=== PATIENT | female | born 1940 | race Caucasian/White ===

== ENCOUNTER 2017-12-25 12:23 | Inpatient (IN) | payer MEDICARE, BC ==
[2017-12-25] MEDS ORDERED: Ondansetron 4 MG/2 ML SDV IVPUSH ONE (12:41)
[2017-12-25] MEDS ORDERED: Pantoprazole 40 MG Vial IVPUSH ONE (12:41)
[2017-12-25] MEDS ORDERED: Famotidine 20 MG/2 ML SDV IVPUSH ONE (12:41)
--- NOTE | 2017-12-25 12:41 | EDM.PDOC ---
ED HPI GENERAL MEDICAL PROBLEM - General Chief Complaint: General Stated Complaint: fever, vommiting, diarrhea Time Seen by Provider: 12/25/17 12:35 Source of Information: Reports: Patient, EMS, Old Records ([facility] chart/EMR), Other ([facility] EMR). Denies: EMS Notes Reviewed (Not available at time of dictation) History Limitations: Reports: No Limitations - History of Present Illness INITIAL COMMENTS - FREE TEXT/NARRATIVE: Patient was brought to the emergency room via ambulance with business banking sales assistant accompaniment with failed attempt to place an IV by the business banking sales assistant with no other treatment in route. Note that the patient has had some progressive nausea and emesis with additional fever and chills since about 2 PM yesterday afternoon. She denies any known exposure to infection, food poisoning, etc. She did not measure her temperature with 650 mg of Tylenol taken at about 10 AM this morning , however no other medications taken for her symptoms to this point. No recent history of abdominal pain, heartburn, diarrhea, melena, gross hematochezia, or any food intolerance, including fatty foods, etc.. She has had 2 emeses since onset of the above symptoms, including earlier this morning with dry heaves and some loose stools also present today. The patient denies any gross hematuria, colic, or other UTI symptoms. The patient denies any chest pain/pressure, heart flutter, dizziness, orthostasis, orthopnea, diaphoresis, paresthesias, recent decreased exercise tolerance, or any other anginal-type symptoms. The patient also denies any recent cough, wheezing, dyspnea, etc.. She denies any specific pain or other discomfort. Patient is a somewhat poor historian today secondary to her anxiety and current illness. Onset: Gradual Onset Date: 12/24/17 Onset Time: 14:00 Duration: Getting Worse Location: Reports: Other (No pain) Quality: Reports: Same as Previous Episode Improves with: Reports: None Worsens with: Reports: None Context: Reports: Other (As above) Associated Symptoms: Reports: Fever/Chills, Nausea/Vomiting. Denies: Confusion , Chest Pain, Cough, Diaphoresis, Headaches, Loss of Appetite, Malaise, Seizure , Shortness of Breath, Syncope, Weakness Treatments STERNMAN: Reports: Acetaminophen - Related Data Allergies Allergy/AdvReac Type Severity Reaction Status Date / Time cefazolin Allergy Hives Verified 10/21/15 15:37 cephalexin [Cephalexin] Allergy Hives Verified 10/21/15 15:37 clindamycin Allergy Rash Verified 10/21/15 15:37 lincomycin HCl Allergy Rash Verified 10/21/15 15:37 [From Lincocin] Penicillins Allergy Hives Verified 10/21/15 15:37 sulfamethoxazole Allergy Hives Verified 10/21/15 15:37 [From Bactrim] trimethoprim [From Bactrim] Allergy Hives Verified 10/21/15 15:37 vancomycin Allergy Rash Verified 10/21/15 15:37 adhesive tape Allergy Rash Uncoded 10/21/15 15:37 Home Meds: Home Meds Arformoterol [Brovana] 15 mcg INH Q12HR 09/24/13 [History] Aspirin [Halfprin] 81 mg PO DAILY@1200 09/24/13 [History] Budesonide [Pulmicort] 0.25 mg INH BID 09/24/13 [History] Cholecalciferol (Vitamin D3) [Vitamin D3] 1,000 unit PO QAM 09/24/13 [History] Clopidogrel [Plavix] 75 mg PO DAILY 09/24/13 [History] Etodolac [Lodine] 300 mg PO BID 09/24/13 [History] Fluticasone Propionate [Flonase] 50 mcg NASBOTH DAILY 09/24/13 [History] Furosemide [Lasix] 20 mg PO DAILY 09/24/13 [History] Hydroxychloroquine [Plaquenil] 200 mg PO DAILY 09/24/13 [History] Levothyroxine [Synthroid] 50 mcg PO BEDTIME 09/24/13 [History] Metoprolol Succinate 50 mg PO BEDTIME 09/24/13 [History] NIFEdipine [Nifedipine ER] 30 mg PO DAILY 09/24/13 [History] Pentoxifylline [TRENtal] 400 mg PO TID@0800,1200,2100 09/24/13 [History] Prasterone [DHEA] 25 mg PO DAILY 09/24/13 [History] Acetylcysteine [Mucomyst 20%] 3 ml NEB TIDRT 10/21/15 [History] Calcium Carbonate/Vitamin D3 [Calcium 600-Vit D3 400 Tablet] 1 tab PO DAILY [History] Lutein/Minerals/Vit A,C & E [Ocuvite] 1 tab PO BEDTIME 10/21/15 [History] Pantoprazole [ProTONIX] 40 mg PO ACBREAKFAST 10/21/15 [History] atorvaSTATin [Lipitor] 40 mg PO BEDTIME 10/21/15 [History] Arformoterol [Brovana] 15 mcg INH PRN 12/25/17 [History] LORazepam 1.5 mg PO BID PRN 12/25/17 [History] Multivits-Min/Iron/FA/Lutein [Centrum Silver Women Tablet] 1 tab PO DAILY [History] Prasterone (DHEA) [Dhea 25] 25 mg PO DAILY 12/25/17 [History] Sertraline [Zoloft] 25 mg PO DAILY 12/25/17 [History] traMADol HCl [Ultram] 50 mg PO Q4HR PRN 12/25/17 [History] Past Medical History HEENT History: Reports: Allergic Rhinitis, Macular Degeneration Cardiovascular History: Reports: Arrhythmia, Blood Clots/VTE/DVT, CAD, Cardiomyopathy, Heart Failure, Heart Murmur, High Cholesterol, Hypertension, TX , PVD, Other (See Below) Other Cardiovascular History: TX in 1990. DVT of the left distal femoral vein on 02/09/16. Peripheral vascular disease with secondary refractory bilateral lower extremities ulcers as below. Varicose veins. Borderline incomplete right bundle branch block. Mild mitral and tricuspid valve insufficiency by echocardiogram with additional grade 1 diastolic dysfunction. 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 Respiratory History: Reports: Bronchitis, Recurrent, COPD, Intubation, Previous , Pneumonia, Recurrent, Pulmonary Fibrosis, Other (See Below). Denies: Asthma, Intubation, Difficult, PE, Sleep Apnea Other Respiratory History: Nocturnal hypoxia with no current oxygen supplementation. Chronic left hemidiaphragm elevation. Gastrointestinal History: Reports: Cholelithiasis, Diverticulosis, Fecal Incontinence, GERD, Helicobacter Pylori. Denies: Celiac Disease, Chronic Constipation, Chronic Diarrhea, Colon Polyp, GI Bleed, Inflammatory Bowel Disease, Irritable Bowel Syndrome, PUD Genitourinary History: Reports: Chronic Renal Insuffiency, Retention, Urinary. Denies: Acute Renal Failure, Renal Calculus, STD, UTI, Recurrent BAGGAGEMAN History: Reports: : 4 Para: 4 LMP (Approximate): Other (See Below) Other OB/BYN History: Menopause in her 50s. Full term without complications during pregnancies or deliveries, however note of last at [age] day of age as above Musculoskeletal History: Reports: Arthritis, Back Pain, Chronic, Fracture, Neck Pain, Chronic, Osteoarthritis, Osteoporosis, SLE, Other (See Below). Denies: Amputation, Gout, RA Other Musculoskeletal History: Multiple thoracic vertebral body compression fracture secondary to her osteoporosis. Moderate scoliosis. SLE with recurrent bilateral leg ulcers. Neurological History: Reports: CVA, Headaches, Chronic, TIA, Other (See Below). Denies: Cerebral Aneurysms, Head Trauma, Migraines, MS, Neuropathy, Peripheral , Parkinson's, Seizure, Vertigo Other Neuro History: Borderline CVA versus TIA on 02/03/[address] scan of the head with requested MRIs of the head and neck not conducted at [facility] at that time per their EMR records as below. Cerebral microvascular disease by CT scan. Psychiatric History: Reports: Anxiety, Dementia, Psych Hospitalization(s), Other (See Below). Denies: Abuse, Victim of, ADD, Addiction, PTSD, Suicide Attempt, Suicidal Ideation Other Psychiatric History: Chronic insomnia Endocrine/Metabolic History: Reports: Hypothyroidism, Obesity/BMI 30+, Osteopenia, Osteoporosis, Vitamin D Deficiency, Other (See Below). Denies: Diabetes, Type I, Diabetes, Type II, Diabetes Mellitus, Type 3c, IDDM Other Endocrine/Metabolic History: Hyperglycemia. Hyperaldosteronism. Hematologic History: Reports: None. Denies: Anemia, Blood Transfusion(s), Iron Deficiency Immunologic History: Reports: SLE. Denies: AIDS, HIV Oncologic (Cancer) History: Reports: None. Denies: Basal Cell Carcinoma, Cervix , Hodgkin's Lymphoma, Leukemia, Lung, Lymphoma, Non-Hodgkin's Lymphoma, Ovarian , Squamous Cell Carcinoma Dermatologic History: Reports: Venous Stasis Dermatitis, Other (See Below) Other Dermatologic History: Chronic bilateral leg ulcers secondary to SLE and peripheral vascular disease as above - Infectious Disease History Infectious Disease History: Reports: MRSA (Of her ankles bilaterally) - Past Surgical History Head Surgeries/Procedures: Reports: None HEENT Surgical History: Reports: Oral Surgery, Other (See Below). Denies: Adenoidectomy, Cataract Surgery, Eye Surgery, Laser Surgery, LASIK, Myringotomy w Tube(s), Naso-Sinus Surgery, Tonsillectomy Other HEENT Surgeries/Procedures: Complete teeth extraction Cardiovascular Surgical History: Reports: None. Denies: Varicose, Vascular Surgery Respiratory Surgical History: Reports: None. Denies: Thoracentesis GI Surgical History: Reports: Appendectomy, Cholecystectomy, Colonoscopy, EGD, Other (See Below). Denies: Hernia, Abdominal, Hernia, Inguinal, Hernia Repair/ Other Other GI Surgeries/Procedures: Appendectomy in the 1940s. Laparoscopic cholecystectomy. EGD on 06/01/11. Colonoscopy in the 1999s. Female Surgical History: Reports: None. Denies: D&C, Hysterectomy, Salpingo- Oophorectomy, Tubal Ligation Endocrine Surgical History: Reports: None Neurological Surgical History: Reports: None Musculoskeletal Surgical History: Reports: Joint Replacement, Knee Replacement, Other (See Below) Other Musculoskeletal Surgeries/Procedures:: Bilateral hip TEP. Bilateral Total knee arthroplasty on 03/21/04 and 07/18/04. Oncologic Surgical History: Reports: None Dermatological Surgical History: Reports: Plastic Surgical Reconstruction/Repair , Skin Graft, Other (See Below) Other Dermatological Surgeries/Procedures: Multiple bilateral skin grafts of the lower extremities and ankles since the 1970s. - Past Imaging History Past Imaging History: Reports: ANALY Screen (Normal on 06/25/12), Cardiac Echo ( with ejection fraction of 6570 percent with otherwise findings as above.) , Carotid US (02/04/14), CAT Scan (CT of the brain on 02/03/14), DEXA Scan (), Mammogram (Last mammogram on 12/19/16), Ultrasound (Left breast ultrasound on 09/26/12), Venous Doppler (Positive left leg venous Doppler study on 02/09/16 with results as above and subsequent multiple follow-up evaluations with last evaluation on 05/22/17 with no report available.), Other (See Below) (Right lower extremity arterial Doppler evaluation on 10/02/17) Social & Family History - Family History HEENT: Reports: None. Denies: Glaucoma, Macular Degeneration, Retinal Detachment Cardiac: Reports: CAD, TX, PVD/COD, Other (See Below) Other Cardiac Family History: Fatal TX in father at age 77. Brothers 2 with peripheral vascular disease. Respiratory: Reports: None. Denies: BPD, COPD, PE GI: Reports: None. Denies: Celiac Disease, Colon Polyps, GI bleed, Inflammatory Bowel Disease, Irritable Bowel Syndrome : Reports: None. Denies: Renal Calculus, Renal Disease/Insufficiency OBGYN: Reports: None Musculoskeletal: Reports: RA, Other (See Below) Other Musculoskeletal Family History: Nephew from muscular dystrophy. Brother with rheumatoid arthritis. Neurological: Reports: None. Denies: Alzheimers Disease, CVA, Dementia, MS, Parkinson's, Seizure, TIA Psychiatric: Reports: None Endocrine/Metabolic: Reports: Diabetes, type II, Other (See Below). Denies: Hypothyroidism Other Endocrine/Metabolic Family History: Diabetes mellitus in mother and brother. Hematologic: Reports: None. Denies: Anemia Immunologic: Reports: None Dermatologic: Reports: None. Denies: Eczema, Psoriasis Oncologic: Reports: Prostate, Other (See Below) Other Oncologic Family History: Brother with prostate cancer. Maternal grandmother and maternal grandfather from unknown type of cancers. - Tobacco Use Smoking Status *Q: Former Smoker Tobacco Use Within Last Twelve Months: Cigarettes Years of Tobacco use: 5 Packs/Tins Daily: 1 Used Tobacco, but Quit: Yes Month/Year Tobacco Last Used: Patient uncertain when she smoker quit smoking Smoking Cessation Information Provided To Patient: No Second Hand Smoke Exposure: No Second Hand Smoke Education Provided: No - Caffeine Use Caffeine Use: Reports: Soda (1 soda per day). 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 ED EXAM, GENERAL - Physical Exam Exam: See Below Exam Limited By: No Limitations General Appearance: Alert, WD/WN, Anxious (Moderate), Mild Distress Eye Exam: Bilateral Eye: EOMI, Normal Fundi, Normal Inspection (No nystagmus), PERRL Ears: Normal External Exam, Normal Canal, Hearing Grossly Normal, Normal TMs Nose: Normal Inspection, Normal Mucosa, No Blood Throat/Mouth: Normal Lips, Normal Gums, Normal Oropharynx, Normal Voice, No Airway Compromise. No: Normal Teeth (Complete dentures uppers and lowers), Dysphagia, Inflammation, Perioral Cyanosis Head: Atraumatic, Normocephalic. No: Facial Swelling, Facial Tenderness, Sinus Tenderness Neck: Supple, Non-Tender, Full Range of Motion, Carotid Bruit (Mild bilateral carotid bruits). No: Limited Range of Motion, Lymphadenopathy (L), Lymphadenopathy (R), Thyromegaly Respiratory/Chest: No Respiratory Distress, Lungs Clear, Normal Breath Sounds, No Accessory Muscle Use, Chest Non-Tender. No: Pleural Rub, Retractions Cardiovascular: Normal Peripheral Pulses, Regular Rate, Rhythm, No Edema, No Gallop, No JVD, No Murmur, No Rub. No: Gallop/S3, Gallop/S4, Friction Rub Peripheral Pulses: 2+: Brachial (L), Brachial (R), Dorsalis Pedis (L), Dorsalis Pedis (R) GI/Abdominal: Normal Bowel Sounds, Soft, Non-Tender, No Organomegaly, No Distention, No Abnormal Bruit, No Mass, Pelvis Stable, Other (Obese). No: Guarding (Female) Exam: Deferred Rectal (Female) Exam: Deferred Back Exam: Normal Inspection, Full Range of Motion, Other (Moderate scoliosis). No: CVA Tenderness (L), CVA Tenderness (R), Muscle Spasm Extremities: Non-Tender, No Pedal Edema, Normal Capillary Refill, Other (Eschar over medial distal tibial region of the right leg with additional 2 cm in diameter 2 grade 2 ulcerations over the medial malleolus with no lymphangitis, erythema, etc. Bandage in place. Stable chronic deformity of the left ankle and foot including pes planus.). No: Luciano's Sign Neurological: Alert, Oriented, CN II-XII Intact, Normal Cognition, Normal Gait, Normal Reflexes (Negative Homans), No Motor/Sensory Deficits Psychiatric: Anxious (Moderate), Depressed Mood (Mild to moderate) Skin Exam: Warm, Dry, Ecchymosis (Forearms bilaterallymild), Wound/Incision ( As above). No: Lymphangitis Lymphatic: No Adenopathy Course - Vital Signs Last Recorded V/S: Last Vital Signs Temp 38.8 C H 12/25/17 12:25 Pulse 97 12/25/17 12:25 Resp 16 12/25/17 12:25 BP 112/81 12/25/17 12:25 Pulse Ox 95 12/25/17 12:25 Vital Signs - 24 hr 12/25/17 12/25/17 12:25 13:00 Temperature [ 38.8 C H Oral] Pulse, 97 95 Peripheral [ Pulse Oximetry] Respiratory 16 20 Rate Blood Pressure 112/81 145/61 H [Right Arm] O2 Sat by Pulse 95 94 L Oximetry - Orders/Labs/Meds Orders: Active Orders 24 hr Category Date Time Status Peripheral IV Care [RC] . DIRECTED Care 12/25/17 12:42 Active Nothing Per Oral Diet [DIET] Diet 12/25/17 Breakfast Active Abdomen Series w Chest 1V [CR] Stat Exams 12/25/17 12:42 Ordered AMYLASE [CHEM] Routine Lab 12/25/17 12:42 Ordered COMPREHENSIVE METABOLIC PN,CMP [CHEM] Stat Lab 12/25/17 12:42 Ordered CULTURE BLOOD [BC] Stat Lab 12/25/17 12:42 Ordered CULTURE BLOOD [BC] Stat Lab 12/25/17 12:42 Ordered CULTURE URINE [RM] Stat Lab 12/25/17 12:42 Ordered H PYLORI STOOL ANTIGEN [MREF] Urgent Lab 12/25/17 12:42 Ordered INR,PT,PROTHROMBIN TIME [COAG] Stat Lab 12/25/17 12:42 Ordered LACTIC ACID [CHEM] Stat Lab 12/25/17 12:42 Ordered LIPASE [CHEM] Stat Lab 12/25/17 12:42 Ordered MAGNESIUM [CHEM] Stat Lab 12/25/17 12:42 Ordered OCCULT BLOOD DIAGNOSTIC [OP] Stat Lab 12/25/17 12:42 Ordered PTT,PARTIAL THROMBOPLSTIN TIME [COAG] Stat Lab 12/25/17 12:42 Ordered UA W/MICROSCOPIC [URIN] Stat Lab 12/25/17 12:42 Ordered URIC ACID [CHEM] Stat Lab 12/25/17 12:42 Ordered Ciprofloxacin in D5W [Cipro in D5W 200 MG/100 ML] 200 Med 12/25/17 20:00 Active mg Premix Bag 1 bag IV Q12HR Sodium Chloride 0.9% [Saline Flush] Med 12/25/17 12:41 Active 10 ml FLUSH ASDIRECTED PRN metroNIDAZOLE/Normal Saline [Flagyl 500 MG in NS 100 ML Med 12/25/17 12:45 Active ] 500 mg Premix Bag 1 bag IV Q8H Blood Culture x2 Reflex Set [OM.PC] Urgent Oth 12/25/17 12:42 Ordered Obtain Past Medical Record [OM.PC] Urgent Oth 12/25/17 12:42 Active Peripheral IV Insertion Adult [OM.PC] Stat Oth 12/25/17 12:42 Ordered Resuscitation Status Stat Resus Stat 12/25/17 12:41 Ordered Medication Orders Ciprofloxacin/Dextrose 200 mg/ (Premix) 100 mls @ 100 mls/hr IV Q12HR MORGAN Metronidazole 500 mg/ Premix 100 mls @ 100 mls/hr IV Q8H MORGAN Sodium Chloride (Saline Flush) 10 ml FLUSH ASDIRECTED PRN PRN Reason: Keep Vein Open Labs: Laboratory Tests 12/25/17 Range/Units 13:05 WBC 9.1 (4.0-10.2) K/uL RBC 4.08 (3.77-5.09) M/uL Hgb 12.5 D (11.7-15.5) g/dL Hct 38.2 (34.0-46.0) % MCV 93.6 (84.0-98.0) fL MCH 30.6 (28.2-33.3) pg MCHC 32.7 (31.7-36.0) g/dL RDW 13.3 (11.2-14.1) % Plt Count 157 (150-350) K/uL Neut % (Auto) 78.6 (45.0-80.0) % Lymph % (Auto) 11.2 (10.0-50.0) % Titus % (Auto) 10.0 (2.0-14.0) % Eos % (Auto) 0.1 (0.0-5.0) % Baso % (Auto) 0.1 (0.0-2.0) % Neut # (Auto) 7.15 H (1.40-7.00) K/uL Lymph # (Auto) 1.02 (0.50-3.50) K/uL Titus # (Auto) 0.91 (0.00-1.00) K/uL Eos # (Auto) 0.01 (0.00-0.50) K/uL Baso # (Auto) 0.01 (0.00-0.20) K/uL Laboratory Tests 12/25/17 12/25/17 12/25/17 Range/Units 13:05 13:05 13:05 WBC 9.1 (4.0-10.2) K/uL RBC 4.08 (3.77-5.09) M/uL Hgb 12.5 D (11.7-15.5) g/dL Hct 38.2 (34.0-46.0) % MCV 93.6 (84.0-98.0) fL MCH 30.6 (28.2-33.3) pg MCHC 32.7 (31.7-36.0) g/dL RDW 13.3 (11.2-14.1) % Plt Count 157 (150-350) K/uL Neut % (Auto) 78.6 (45.0-80.0) % Lymph % (Auto) 11.2 (10.0-50.0) % Titus % (Auto) 10.0 (2.0-14.0) % Eos % (Auto) 0.1 (0.0-5.0) % Baso % (Auto) 0.1 (0.0-2.0) % Neut # (Auto) 7.15 H (1.40-7.00) K/uL Lymph # (Auto) 1.02 (0.50-3.50) K/uL Titus # (Auto) 0.91 (0.00-1.00) K/uL Eos # (Auto) 0.01 (0.00-0.50) K/uL Baso # (Auto) 0.01 (0.00-0.20) K/uL PT 11.4 (9.8-11.7) SEC INR 1.1 APTT 26.5 (22.1-29.8) SEC Sodium (136-145) mmol/L Potassium (3.5-5.1) mmol/L Chloride (98-107) mmol/L Carbon Dioxide (21.0-32.0) mmol/L BUN (7-18) mg/dL Creatinine (0.51-1.17) mg/dL Est Cr Clr Drug Dosing Estimated GFR (MDRD) mL/min Glucose (74-106) mg/dL Lactic Acid (0.4-2.0) mmol/L Uric Acid (2.6-7.2) mg/dL Calcium (8.5-10.1) mg/dL Magnesium (1.8-2.4) mg/dL Total Bilirubin (0.2-1.0) mg/dL AST (15-37) U/L ALT (12-78) U/L Alkaline Phosphatase (46-116) IU/L Total Protein (6.4-8.2) g/dL Albumin (3.4-5.0) g/dL Amylase 45 (25-115) U/L Lipase (73-393) U/L Specimen Type Urine Color Urine Appearance Urine pH (5.0-9.0) Ur Specific Stickney (1.005-1.030) Urine Protein (NEGATIVE) mg/dL Urine Glucose (UA) (NEGATIVE) mg/dL Urine Ketones (NEGATIVE) mg/dL Urine Occult Blood (NEGATIVE) Urine Nitrite (NEGATIVE) Urine Bilirubin (NEGATIVE) Urine Urobilinogen (0.2-1.0) E.U./dL Ur Leukocyte Esterase (NEGATIVE) Urine RBC /HPF Urine WBC /HPF Ur Epithelial Cells /LPF Urine Bacteria (NONE TO FEW) /HPF 12/25/17 12/25/17 12/25/17 Range/Units 13:05 13:05 13:46 WBC (4.0-10.2) K/uL RBC (3.77-5.09) M/uL Hgb (11.7-15.5) g/dL Hct (34.0-46.0) % MCV (84.0-98.0) fL MCH (28.2-33.3) pg MCHC (31.7-36.0) g/dL RDW (11.2-14.1) % Plt Count (150-350) K/uL Neut % (Auto) (45.0-80.0) % Lymph % (Auto) (10.0-50.0) % Titus % (Auto) (2.0-14.0) % Eos % (Auto) (0.0-5.0) % Baso % (Auto) (0.0-2.0) % Neut # (Auto) (1.40-7.00) K/uL Lymph # (Auto) (0.50-3.50) K/uL Titus # (Auto) (0.00-1.00) K/uL Eos # (Auto) (0.00-0.50) K/uL Baso # (Auto) (0.00-0.20) K/uL PT (9.8-11.7) SEC INR APTT (22.1-29.8) SEC Sodium 137 (136-145) mmol/L Potassium 3.2 L (3.5-5.1) mmol/L Chloride 98 (98-107) mmol/L Carbon Dioxide 29.3 (21.0-32.0) mmol/L BUN 9 (7-18) mg/dL Creatinine 0.67 (0.51-1.17) mg/dL Est Cr Clr Drug Dosing TNP Estimated GFR (MDRD) > 60 mL/min Glucose 120 H (74-106) mg/dL Lactic Acid 1.3 (0.4-2.0) mmol/L Uric Acid 2.2 L (2.6-7.2) mg/dL Calcium 8.9 (8.5-10.1) mg/dL Magnesium 1.4 L (1.8-2.4) mg/dL Total Bilirubin 0.6 (0.2-1.0) mg/dL AST 51 H (15-37) U/L ALT 49 (12-78) U/L Alkaline Phosphatase 94 (46-116) IU/L Total Protein 6.7 (6.4-8.2) g/dL Albumin 3.0 L (3.4-5.0) g/dL Amylase (25-115) U/L Lipase 144 (73-393) U/L Specimen Type Urinvoid Urine Color Yellow Urine Appearance Clear Urine pH 6.0 (5.0-9.0) Ur Specific Stickney 1.010 (1.005-1.030) Urine Protein Negative (NEGATIVE) mg/dL Urine Glucose (UA) Negative (NEGATIVE) mg/dL Urine Ketones Negative (NEGATIVE) mg/dL Urine Occult Blood Trace-intact H (NEGATIVE) Urine Nitrite Negative (NEGATIVE) Urine Bilirubin Moderate H (NEGATIVE) Urine Urobilinogen 0.2 (0.2-1.0) E.U./dL Ur Leukocyte Esterase Trace H (NEGATIVE) Urine RBC 0-5 /HPF Urine WBC 5-10 H /HPF Ur Epithelial Cells Few /LPF Urine Bacteria Few (NONE TO FEW) /HPF Blood cultures 2 collected. Urine specimen set up for culture and sensitivity Meds: Medications Generic Name Dose Route Start Last Admin Trade Name Freq PRN Reason Stop Dose Admin Ciprofloxacin/Dextrose 200 mg/ 100 mls @ 100 mls/hr 12/25/17 20:00 Premix IV Q12HR MORGAN Metronidazole 500 mg/ Premix 100 mls @ 100 mls/hr 12/25/17 12:45 IV Q8H MORGAN Sodium Chloride 10 ml 12/25/17 12:41 Saline Flush FLUSH ASDIRECTED PRN Keep Vein Open Discontinued Medications Generic Name Dose Route Start Last Admin Trade Name Freq PRN Reason Stop Dose Admin Famotidine 40 mg 12/25/17 12:41 Pepcid IVPUSH 12/25/17 12:42 ONETIME ONE Ondansetron HCl 4 mg 12/25/17 12:41 Zofran IVPUSH 12/25/17 12:42 ONETIME ONE Pantoprazole Sodium 40 mg 12/25/17 12:41 Protonix Iv IVPUSH 12/25/17 12:42 ONETIME ONE - Radiology Interpretation Free Text/Narrative:: Acute abdominal x-rays shows evidence of moderate COPD changes with probable pulmonary hypertension and/or mild centralized CHF. Moderate scoliosis also present. No significant pulmonary infiltrates despite moderate COPD and pulmonary fibrosis. No pneumothorax. Moderately elevated right hemidiaphragm stable from previous x-rays. Moderate osteoarthritic changes including spur formation. Status post bilateral hip TEP and laparoscopic cholecystectomy. Mild cardiomegaly and prominent aortic arch. Departure - Departure Time of Disposition: 14:40 Disposition: Admitted As Inpatient 64 Condition: Fair Clinical Impression: COLD, Chronic obstructive lung disease, HTN, Benign hypertension, Peptic reflux disease, Mixed anxiety depressive disorder, Hyperaldosteronism, Hypothyroidism (acquired), Hyperglycemia, Elevated LFTs, Hypokalemia, Hypomagnesemia, Hypoalbuminemia Venous stasis ulcers Qualifiers: Venous stasis ulcer site: ankle Varicose vein presence: with varicose veins Laterality: left Non-pressure ulcer stage: limited to breakdown of skin Qualified Code(s): I83.023 - Varicose veins of left lower extremity with ulcer of ankle; L97.321 - Non-pressure chronic ulcer of left ankle limited to breakdown of skin Coronary artery disease Qualifiers: Coronary Disease-Associated Artery/Lesion type: [place] artery Pl[place] vs. transplanted heart: [place] heart Associated angina: without angina Qualified Code(s): I25.10 - Atherosclerotic heart disease of [place] coronary artery without angina pectoris Osteoarthritis Qualifiers: Osteoarthritis location: multiple joints Osteoarthritis type: primary Qualified Code(s): M15.0 - Primary generalized (osteo)arthritis Hyperlipidemia Qualifiers: Hyperlipidemia type: unspecified Qualified Code(s): E78.5 - Hyperlipidemia, unspecified Nausea and vomiting Qualifiers: Vomiting type: unspecified Vomiting Intractability: non-intractable Qualified Code(s): R11.2 - Nausea with vomiting, unspecified - Discharge Information Forms: ED Department Discharge Care Plan Goals: See plan - Problem List & Annotations (1) Nausea and vomiting SNOMED Code(s): 08829487 Code(s): R11.2 - NAUSEA WITH VOMITING, UNSPECIFIED Status: Acute Priority : High Onset Date: ~12/24/17 Annotation/Comment:: IV Zofran given upon patient's arrival to the emergency room. Additional high-dose IV Protonix and IV Pepcid as GI prophylaxis. Abdominal assessments with vitals. Secondary to fever blood cultures 2 were collected. Patient was also started on IV Cipro and IV Flagyl in the emergency room. Qualifiers: Vomiting type: unspecified Vomiting Intractability: non-intractable Qualified Code(s): R11.2 - Nausea with vomiting, unspecified (2) Coronary artery disease SNOMED Code(s): 15144802 Code(s): I25.10 - ATHSCL HEART DISEASE OF [place] CORONARY ARTERY W/O ANG PCTRS Status: Chronic Priority: Medium Annotation/Comment:: No recent chest pain or anginal type symptoms. Stable by history Qualifiers: Coronary Disease-Associated Artery/Lesion type: [place] artery [place] vs. transplanted heart: [place] heart Associated angina: without angina Qualified Code(s): I25.10 - Atherosclerotic heart disease of [place] coronary artery without angina pectoris (3) Hyperaldosteronism SNOMED Code(s): 12970947 Code(s): E26.9 - HYPERALDOSTERONISM, UNSPECIFIED Status: Chronic Priority : Medium Annotation/Comment:: PTH and phosphate level to be conducted in the a.m. (4) Hyperglycemia SNOMED Code(s): 62733554 Code(s): R73.9 - HYPERGLYCEMIA, UNSPECIFIED Status: Chronic Priority: Medium Annotation/Comment:: Glycosylated hemoglobin in the a.m. (5) Hyperlipidemia SNOMED Code(s): 94620286 Code(s): E78.5 - HYPERLIPIDEMIA, UNSPECIFIED Status: Chronic Priority: Medium Annotation/Comment:: Lipid panel in the a.m. Qualifiers: Hyperlipidemia type: unspecified (6) Hypothyroidism (acquired) SNOMED Code(s): 593059452 Code(s): E03.9 - HYPOTHYROIDISM, UNSPECIFIED Status: Chronic Priority: Medium Annotation/Comment:: TSH in the a.m. (7) Mixed anxiety depressive disorder SNOMED Code(s): 262510237 Code(s): F41.8 - OTHER SPECIFIED ANXIETY DISORDERS Status: Chronic Priority: Medium Annotation/Comment:: Moderate control in the emergency room secondary to current illness. Note medication changes for this time. Close follow-up by regular provider (8) Osteoarthritis SNOMED Code(s): 297189818 Code(s): M19.90 - UNSPECIFIED OSTEOARTHRITIS, UNSPECIFIED SITE Status: Chronic Priority: Medium Annotation/Comment:: Stable by history Qualifiers: Osteoarthritis location: multiple joints Osteoarthritis type: primary Qualified Code(s): M15.0 - Primary generalized (osteo)arthritis (9) Peptic reflux disease SNOMED Code(s): 952221974 Code(s): K21.9 - GASTRO-ESOPHAGEAL REFLUX DISEASE WITHOUT ESOPHAGITIS Status: Chronic Priority: Medium Annotation/Comment:: Otherwise stable by history. Treatment as above. (10) Venous stasis ulcers Status: Acute Priority: Medium Onset Date: 12/25/17 Annotation/Comment:: History of recurrent leg and ankle ulcers as above. Note previous history of MRSA with wound culture and sensitivity, including MRSA to be collected after admission. Qualifiers: Venous stasis ulcer site: ankle Varicose vein presence: with varicose veins Laterality: left Non-pressure ulcer stage: limited to breakdown of skin Qualified Code(s): I83.023 - Varicose veins of left lower extremity with ulcer of ankle; L97.321 - Non-pressure chronic ulcer of left ankle limited to breakdown of skin (11) COLD, Chronic obstructive lung disease SNOMED Code(s): 12417009 Code(s): J44.9 - CHRONIC OBSTRUCTIVE PULMONARY DISEASE, UNSPECIFIED Status : Chronic Priority: Medium Annotation/Comment:: Stable by history with no recent bronchitic type symptoms. Note history of nocturnal hypoxia with no current home O2 therapy by patient history. (12) HTN, Benign hypertension SNOMED Code(s): 80928863 Code(s): I10 - ESSENTIAL (PRIMARY) HYPERTENSION Status: Chronic Priority : Medium Annotation/Comment:: Blood pressure is under good control in the emergency room. Continue to observe closely during this hospitalization. (13) Hypoalbuminemia SNOMED Code(s): 230541862 Code(s): E88.09 - OTH DISORDERS OF PLASMA-PROTEIN METABOLISM, NEC Status: Acute Priority: Medium Current Visit: Yes Onset Date: 12/25/17 Annotation/Comment:: Initiate high protein Glucerna supplements as snacks (14) Hypokalemia SNOMED Code(s): 10013883 Code(s): E87.6 - HYPOKALEMIA Status: Acute Priority: Medium Current Visit: Yes Onset Date: 12/25/17 Annotation/Comment:: Initiate IV lactated Ringer's with caution secondary to history of CHF (15) Hypomagnesemia SNOMED Code(s): 189956160 Code(s): E83.42 - HYPOMAGNESEMIA Status: Acute Priority: Medium Current Visit: Yes Onset Date: 12/25/17 Annotation/Comment:: Initiate magnesium oxide therapy - Problem List Review Problem List Initiated/Reviewed/Updated: Yes - My Orders Last 24 Hours: My Active Orders 12/25/17 12:41 Sodium Chloride 0.9% [Saline Flush] 10 ml FLUSH ASDIRECTED PRN Resuscitation Status Stat 12/25/17 12:42 Peripheral IV Care [RC] . DIRECTED Abdomen Series w Chest 1V [CR] Stat AMYLASE [CHEM] Routine COMPREHENSIVE METABOLIC PN,CMP [CHEM] Stat CULTURE BLOOD [BC] Stat CULTURE BLOOD [BC] Stat CULTURE URINE [RM] Stat H PYLORI STOOL ANTIGEN [MREF] Urgent INR,PT,PROTHROMBIN TIME [COAG] Stat LACTIC ACID [CHEM] Stat LIPASE [CHEM] Stat MAGNESIUM [CHEM] Stat OCCULT BLOOD DIAGNOSTIC [OP] Stat PTT,PARTIAL THROMBOPLSTIN TIME [COAG] Stat UA W/MICROSCOPIC [URIN] Stat URIC ACID [CHEM] Stat Blood Culture x2 Reflex Set [OM.PC] Urgent Obtain Past Medical Record [OM.PC] Urgent Peripheral IV Insertion Adult [OM.PC] Stat 12/25/17 12:45 metroNIDAZOLE/Normal Saline [Flagyl 500 MG in NS 100 ML] 500 mg Premix Bag 1 bag IV Q8H 12/25/17 20:00 Ciprofloxacin in D5W [Cipro in D5W 200 MG/100 ML] 200 mg Premix Bag 1 bag IV Q12HR 12/25/17 Breakfast Nothing Per Oral Diet [DIET] - Assessment/Plan Admission H&P: Please use this note as an admission H&P Last 24 Hours: My Active Orders 12/25/17 12:41 Sodium Chloride 0.9% [Saline Flush] 10 ml FLUSH ASDIRECTED PRN Resuscitation Status Stat 12/25/17 12:42 Peripheral IV Care [RC] . DIRECTED Abdomen Series w Chest 1V [CR] Stat AMYLASE [CHEM] Routine COMPREHENSIVE METABOLIC PN,CMP [CHEM] Stat CULTURE BLOOD [BC] Stat CULTURE BLOOD [BC] Stat CULTURE URINE [RM] Stat H PYLORI STOOL ANTIGEN [MREF] Urgent INR,PT,PROTHROMBIN TIME [COAG] Stat LACTIC ACID [CHEM] Stat LIPASE [CHEM] Stat MAGNESIUM [CHEM] Stat OCCULT BLOOD DIAGNOSTIC [OP] Stat PTT,PARTIAL THROMBOPLSTIN TIME [COAG] Stat UA W/MICROSCOPIC [URIN] Stat URIC ACID [CHEM] Stat Blood Culture x2 Reflex Set [OM.PC] Urgent Obtain Past Medical Record [OM.PC] Urgent Peripheral IV Insertion Adult [OM.PC] Stat 12/25/17 12:45 metroNIDAZOLE/Normal Saline [Flagyl 500 MG in NS 100 ML] 500 mg Premix Bag 1 bag IV Q8H 12/25/17 20:00 Ciprofloxacin in D5W [Cipro in D5W 200 MG/100 ML] 200 mg Premix Bag 1 bag IV Q12HR 12/25/17 Breakfast Nothing Per Oral Diet [DIET] Assessment:: As above Plan: As above. Extensive precautions were given to the patient, who is in agreement with the treatment plan. The patient will require about 3-4 days of inpatient/ acute care secondary to multiple health problems as above. [facility] [place] care in the a.m.
[2017-12-25 13:26] LABS: CHLORIDE,CL 98 mmol/L (98-107); SODIUM,NA 137 mmol/L (136-145)
[2017-12-25] MEDS: Sodium Chloride 0.9% 10 ML Syringe FLUSH PRN ×2 (13:27→22:17)
[2017-12-25] MEDS: metroNIDAZOLE/Normal Saline 500 MG in Premix Bag 1 BAG IV SCH ×2 (13:58→21:06)
[2017-12-25] MEDS ORDERED: Albuterol/Ipratropium 3.0-0.5 MG/3 ML Neb Soln NEB PRN (16:55)
[2017-12-25] MEDS ORDERED: Albuterol 0.083% 2.5 MG/3 ML Neb Soln INH PRN (16:55)
[2017-12-25] MEDS ORDERED: Enoxaparin 30 MG/0.3 ML Syringe SUBCUT SCH (17:00)
[2017-12-25] MEDS: Acetaminophen 325 MG Tab PO PRN (18:07)
[2017-12-25] MEDS: Magnesium Oxide 400 MG Tab PO SCH (18:08)
[2017-12-25] MEDS ORDERED: atorvaSTATin 40 MG Tab PO SCH (20:00)
[2017-12-25] MEDS ORDERED: Lutein/Minerals/Vitamin C/Vitamin E Acetate Cap PO SCH (20:00)
[2017-12-25] MEDS: Albuterol/Ipratropium 3.0-0.5 MG/3 ML Neb Soln NEB SCH (21:05)
[2017-12-25] MEDS: Arformoterol 15 MCG/2 ML Neb Soln INH SCH (21:06)
[2017-12-25] MEDS: Budesonide 0.25 MG/2 ML Neb Susp NEB SCH (21:06)
[2017-12-25] MEDS: Levothyroxine 50 MCG Tab PO SCH (21:10)
[2017-12-25] MEDS: Pentoxifylline 400 MG Tab.ER PO SCH (21:10)
[2017-12-25] MEDS: Sodium Chloride 0.9% 10 ML Syringe FLUSH SCH (21:11)
[2017-12-25] MEDS: LORazepam 0.5 MG Tab PO PRN (21:11)
[2017-12-25] MEDS: Ciprofloxacin in D5W 200 MG in Premix Bag 1 BAG IV SCH ×2 (21:12)
[2017-12-25] MEDS: traMADol 50 MG Tab PO PRN (21:19)
[2017-12-25] MEDS: Lactated Ringers 1,000 ML IV SCH (22:56)
[2017-12-26] MEDS: Sodium Chloride 0.9% 10 ML Syringe FLUSH PRN ×2 (03:53→12:42)
[2017-12-26] MEDS: Albuterol/Ipratropium 3.0-0.5 MG/3 ML Neb Soln NEB SCH ×3 (03:53→13:40)
[2017-12-26] MEDS: metroNIDAZOLE/Normal Saline 500 MG in Premix Bag 1 BAG IV SCH ×3 (03:53→21:28)
[2017-12-26] MEDS: Acetaminophen 325 MG Tab PO PRN ×3 (05:16→21:27)
[2017-12-26] MEDS ORDERED: Pantoprazole 40 MG Tab.CR PO SCH (07:30)
[2017-12-26] MEDS: Magnesium Oxide 400 MG Tab PO SCH (07:36)
[2017-12-26] MEDS: Pentoxifylline 400 MG Tab.ER PO SCH ×3 (07:37→21:49)
[2017-12-26] MEDS: Ondansetron 4 MG/2 ML SDV IVPUSH PRN ×2 (07:42→18:24)
[2017-12-26] MEDS: Sodium Chloride 0.9% 10 ML Syringe FLUSH SCH ×2 (07:43→20:46)
[2017-12-26] MEDS: Ciprofloxacin in D5W 200 MG in Premix Bag 1 BAG IV SCH ×4 (07:46→19:27)
[2017-12-26] MEDS ORDERED: NIFEdipine 30 MG Tab.ER PO SCH (08:00)
[2017-12-26] MEDS ORDERED: Aspirin 81 MG Tab.EC PO SCH (08:00)
[2017-12-26] MEDS ORDERED: Furosemide 20 MG Tab PO SCH (08:00)
[2017-12-26] MEDS ORDERED: Metoprolol Succinate 50 MG Tab.ER PO SCH (08:00)
[2017-12-26] MEDS ORDERED: Fluticasone Propionate Nasal Spray 16 GM Bottle NASBOTH SCH (08:00)
[2017-12-26] MEDS ORDERED: Hydroxychloroquine 200 MG Tab PO SCH (08:00)
[2017-12-26] MEDS ORDERED: Multivitamin Tab PO SCH (08:00)
[2017-12-26] MEDS ORDERED: DHEA 25 MG PO SCH (08:00)
[2017-12-26 08:11] LABS: CHLORIDE,CL 96 mmol/L (98-107); SODIUM,NA 136 mmol/L (136-145)
[2017-12-26] MEDS: LORazepam 0.5 MG Tab PO PRN (10:09)
[2017-12-26] MEDS: traMADol 50 MG Tab PO PRN (10:26)
[2017-12-26] MEDS: Arformoterol 15 MCG/2 ML Neb Soln INH SCH ×2 (10:27→21:06)
[2017-12-26] MEDS: Budesonide 0.25 MG/2 ML Neb Susp NEB SCH ×2 (10:37→21:48)
[2017-12-26] MEDS: ACETYLCYSTEINE NEB SCH (10:38)
[2017-12-26] MEDS: ETODOLAC 300 MG PO SCH ×2 (11:42→19:16)
[2017-12-26] MEDS ORDERED: Calcium Carbonate/Vitamin D3 1500 MG-400 Units Tab PO SCH (12:00)
[2017-12-26] MEDS ORDERED: Clopidogrel 75 MG Tab PO SCH (12:00)
[2017-12-26] MEDS ORDERED: Cholecalciferol (Vitamin D3) 1,000 Unit Tab PO SCH (12:00)
[2017-12-26] MEDS ORDERED: Sertraline 25 MG Tab PO SCH (12:00)
[2017-12-26] MEDS: Potassium Chloride 10 MEQ Tab.ER PO SCH ×2 (12:41→21:06)
[2017-12-26] MEDS: Lactated Ringers 1,000 ML IV SCH (14:10)
[2017-12-26] MEDS ORDERED: Morphine 2 MG/ML Syringe IVPUSH PRN (16:51)
[2017-12-26] MEDS ORDERED: LORazepam 0.5 MG Tab PO PRN (17:00)
--- NOTE | 2017-12-26 17:09 | PCM.PN ---
- General Info Date of Service: 12/26/17 - Review of Systems General: Reports: Weakness, Appetite (poor) HEENT: Reports: No Symptoms Pulmonary: Reports: No Symptoms Cardiovascular: Reports: No Symptoms Gastrointestinal: Reports: Decreased Appetite, Diarrhea, Nausea, Vomiting Genitourinary: Reports: No Symptoms Musculoskeletal: Reports: Back Pain, Joint Pain Skin: Reports: No Symptoms Neurological: Reports: Weakness Psychiatric: Reports: Anxiety, Agitation - Patient Data Vitals - Most Recent: Last Vital Signs Temp 99.2 F 12/26/17 16:42 Pulse 102 H 12/26/17 16:42 Resp 18 12/26/17 12:00 BP 107/53 L 12/26/17 13:00 Pulse Ox 96 12/26/17 16:42 Weight - Most Recent: 150 lb 15.984 oz I&O - Last 24 Hours: Intake & Output 12/26/17 12/26/17 12/26/17 06:59 14:59 22:59 Intake Total 300 300 Output Total 500 Balance -200 300 Lab Results Last 24 Hours: Laboratory Results - last 24 hr 12/25/17 12/26/17 12/26/17 Range/Units 13:05 07:05 07:05 WBC 19.3 H (4.0-10.2) K/uL RBC 3.81 (3.77-5.09) M/uL Hgb 11.7 (11.7-15.5) g/dL Hct 36.2 (34.0-46.0) % MCV 95.0 (84.0-98.0) fL MCH 30.7 (28.2-33.3) pg MCHC 32.3 (31.7-36.0) g/dL RDW 13.6 (11.2-14.1) % Plt Count 158 (150-350) K/uL Neut % (Auto) 85.3 H (45.0-80.0) % Lymph % (Auto) 5.9 L (10.0-50.0) % [place] % (Auto) 8.7 (2.0-14.0) % Eos % (Auto) 0.0 (0.0-5.0) % Baso % (Auto) 0.1 (0.0-2.0) % Neut # (Auto) 16.44 H (1.40-7.00) K/uL Lymph # (Auto) 1.14 (0.50-3.50) K/uL [place] # (Auto) 1.67 H (0.00-1.00) K/uL Eos # (Auto) 0.00 (0.00-0.50) K/uL Baso # (Auto) 0.01 (0.00-0.20) K/uL Sodium 136 (136-145) mmol/L Potassium 3.0 L (3.5-5.1) mmol/L Chloride 96 L (98-107) mmol/L Carbon Dioxide 29.2 (21.0-32.0) mmol/L BUN 18 (7-18) mg/dL Creatinine 1.09 (0.51-1.17) mg/dL Est Cr Clr Drug Dosing TNP Estimated GFR (MDRD) 48 mL/min Glucose 110 H (74-106) mg/dL Hemoglobin A1c (4.3-5.7) % Calcium 8.5 (8.5-10.1) mg/dL Phosphorus 4.6 (2.6-4.7) mg/dL Magnesium 1.4 L (1.8-2.4) mg/dL Total Bilirubin 0.7 (0.2-1.0) mg/dL AST 78 H (15-37) U/L ALT 49 (12-78) U/L Alkaline Phosphatase 80 (46-116) IU/L C-Reactive Protein 10.9 H (<=0.9) mg/dL Total Protein 6.4 (6.4-8.2) g/dL Albumin 2.7 L (3.4-5.0) g/dL Amylase 42 (25-115) U/L Lipase 83 (73-393) U/L 12/26/17 12/26/17 Range/Units 07:05 07:05 WBC (4.0-10.2) K/uL RBC (3.77-5.09) M/uL Hgb (11.7-15.5) g/dL Hct (34.0-46.0) % MCV (84.0-98.0) fL MCH (28.2-33.3) pg MCHC (31.7-36.0) g/dL RDW (11.2-14.1) % Plt Count (150-350) K/uL Neut % (Auto) (45.0-80.0) % Lymph % (Auto) (10.0-50.0) % [place] % (Auto) (2.0-14.0) % Eos % (Auto) (0.0-5.0) % Baso % (Auto) (0.0-2.0) % Neut # (Auto) (1.40-7.00) K/uL Lymph # (Auto) (0.50-3.50) K/uL [place] # (Auto) (0.00-1.00) K/uL Eos # (Auto) (0.00-0.50) K/uL Baso # (Auto) (0.00-0.20) K/uL Sodium (136-145) mmol/L Potassium (3.5-5.1) mmol/L Chloride (98-107) mmol/L Carbon Dioxide (21.0-32.0) mmol/L BUN (7-18) mg/dL Creatinine (0.51-1.17) mg/dL Est Cr Clr Drug Dosing Estimated GFR (MDRD) mL/min Glucose (74-106) mg/dL Hemoglobin A1c 5.3 (4.3-5.7) % Calcium (8.5-10.1) mg/dL Phosphorus (2.6-4.7) mg/dL Magnesium (1.8-2.4) mg/dL Total Bilirubin (0.2-1.0) mg/dL AST (15-37) U/L ALT (12-78) U/L Alkaline Phosphatase (46-116) IU/L C-Reactive Protein 24.5 H (<=0.9) mg/dL Total Protein (6.4-8.2) g/dL Albumin (3.4-5.0) g/dL Amylase (25-115) U/L Lipase (73-393) U/L Eguenio Results Last 24 Hours: Microbiology 12/25/17 13:00 Aerobic Blood Culture - Preliminary Blood - Venous Anaerobic Blood Culture - Preliminary 12/25/17 13:05 Aerobic Blood Culture - Preliminary Blood - Venous - Lab Draw NO GROWTH AFTER 1 DAY Anaerobic Blood Culture - Preliminary NO GROWTH AFTER 1 DAY 12/25/17 13:46 Urine Culture - Final Urine, Clean Catch MIXED TEDDY SUGGESTIVE OF CONTAMINATION. 12/26/17 08:09 Stool Occult Blood (EUGENIO) - Final Stool / Feces NEGATIVE OCCULT BLOOD Med Orders - Current: Current Medications Acetaminophen (Tylenol) 650 mg PO Q4H PRN PRN Reason: Pain Last Admin: 12/26/17 10:18 Dose: 650 mg Acetaminophen (Tylenol Extra Strength) 1,000 mg PO BEDTIME [facility]GAN Albuterol (Proventil Neb Soln) 2.5 mg INH Q2H PRN PRN Reason: SHORTNESS OF BREATH Albuterol/Ipratropium (Duoneb 3.0-0.5 Mg/3 Ml) 3 ml NEB Q4HRRT PRN PRN Reason: Dyspnea Albuterol/Ipratropium (Duoneb 3.0-0.5 Mg/3 Ml) 3 ml NEB QIDRT [facility] Arformoterol Tartrate (Brovana) 15 mcg INH Q12HR [facility] Last Admin: 12/26/17 10:27 Dose: 15 mcg Atorvastatin Calcium (Lipitor) 40 mg PO BEDTIME [facility] Last Admin: 12/25/17 21:10 Dose: 40 mg Bismuth Subsalicylate (Pepto Bismol) 30 ml PO DAILY [facility] Budesonide (Pulmicort) 0.25 mg NEB BIDRT [facility] Last Admin: 12/26/17 10:37 Dose: 0.25 mg Cholecalciferol (Vitamin D3) 1,000 units PO DAILY@1200 [facility] Last Admin: 12/26/17 12:40 Dose: 1,000 units Diphenhydramine HCl (Benadryl) 50 mg PO BEDTIME [facility] Fluticasone Propionate (Flonase) 0 gm NASBOTH DAILY [facility] Last Admin: 12/26/17 10:17 Dose: 2 sprays Ciprofloxacin/Dextrose 200 mg/ (Premix) 100 mls @ 100 mls/hr IV Q12HR [facility] Last Admin: 12/26/17 07:46 Dose: 100 mls/hr Metronidazole 500 mg/ Premix 100 mls @ 100 mls/hr IV Q8H [facility] Last Admin: 12/26/17 12:41 Dose: 100 mls/hr Lactated Ringer's (Ringers, Lactated) 1,000 mls @ 80 mls/hr IV ASDIRECTED [facility] Last Admin: 12/26/17 14:10 Dose: 80 mls/hr Levothyroxine Sodium (Synthroid) 50 mcg PO BEDTIME [facility] Last Admin: 12/25/17 21:10 Dose: 50 mcg Lorazepam (Ativan) 1.5 mg PO Q4H PRN PRN Reason: Anxiety Lorazepam (Ativan) 1.5 mg PO TID@0800,1400,2000 [facility] Magnesium Oxide (Magnesium Oxide) 400 mg PO BID [facility] Morphine Sulfate (Morphine) 2 mg IVPUSH Q4H PRN PRN Reason: Pain Dhea 25 Mg Capsule * (*Own Med) 0 mg PO DAILY [facility] Last Admin: 12/26/17 10:17 Dose: 25 mg Ondansetron HCl (Zofran) 4 mg IVPUSH Q6H PRN PRN Reason: Nausea/Vomiting Last Admin: 12/26/17 07:42 Dose: 4 mg Pantoprazole Sodium (Protonix Iv) 40 mg IVPUSH DAILY [facility] Pentoxifylline (Trental) 400 mg PO TID@0800,1200,2100 [facility] Last Admin: 12/26/17 12:40 Dose: 400 mg Potassium Chloride (Klor-Con 10) 20 meq PO TID [facility] Last Admin: 12/26/17 12:41 Dose: 20 meq Sertraline HCl (Zoloft) 25 mg PO DAILY@1200 [facility] Last Admin: 12/26/17 12:40 Dose: 25 mg Sodium Chloride (Saline Flush) 10 ml FLUSH ASDIRECTED PRN PRN Reason: Keep Vein Open Last Admin: 12/26/17 12:42 Dose: 10 ml Sodium Chloride (Saline Flush) 10 ml FLUSH Q12HR [facility] Last Admin: 12/26/17 07:43 Dose: 10 ml Tramadol HCl (Ultram) 50 mg PO Q4HR PRN PRN Reason: Pain Last Admin: 12/26/17 10:26 Dose: 50 mg Discontinued Medications Albuterol/Ipratropium (Duoneb 3.0-0.5 Mg/3 Ml) 3 ml NEB Q6HRRT [facility] Last Admin: 12/26/17 13:40 Dose: 3 ml Aspirin (Halfprin) 81 mg PO DAILY [facility] Last Admin: 12/26/17 07:37 Dose: 81 mg Calcium Carbonate (Caltrate 600+D 1500 Mg-400 Units) 1 tab PO DAILY@1200 [facility] Clopidogrel Bisulfate (Plavix) 75 mg PO DAILY@1200 [facility] Enoxaparin Sodium (Lovenox) 30 mg SUBCUT Q24H [facility] Last Admin: 12/25/17 18:08 Dose: 30 mg Famotidine (Pepcid) 40 mg IVPUSH ONETIME ONE Stop: 12/25/17 12:42 Last Admin: 12/25/17 13:20 Dose: 40 mg Furosemide (Lasix) 20 mg PO DAILY [facility] Last Admin: 12/26/17 07:37 Dose: 20 mg Hydroxychloroquine Sulfate (Plaquenil) 200 mg PO DAILY [facility] Last Admin: 12/26/17 07:38 Dose: 200 mg Hydroxychloroquine Sulfate (Plaquenil) 200 mg PO DAILY@1200 [facility] Lorazepam (Ativan) 1.5 mg PO BID PRN PRN Reason: Anxiety Last Admin: 12/26/17 10:09 Dose: 1.5 mg Magnesium Oxide (Magnesium Oxide) 400 mg PO DAILY [facility] Last Admin: 12/26/17 07:36 Dose: 400 mg Metoprolol Succinate (Toprol Xl) 50 mg PO DAILY [facility] Last Admin: 12/26/17 07:38 Dose: 50 mg Multivitamins/Minerals/Vitamin C (Tab-A-Gerardo) 1 tab PO DAILY [facility] Last Admin: 12/26/17 07:37 Dose: 1 tab Nifedipine (Procardia Xl) 30 mg PO DAILY [facility] Last Admin: 12/26/17 10:37 Dose: Not Given Non-Formulary Medication (Acetylcysteine) 3 ml NEB TIDRT [facility] Last Admin: 12/26/17 10:38 Dose: Not Given Etodolac [Lodine] (300 Mg) Capsules) 300 mg PO BID [facility] Last Admin: 12/26/17 11:42 Dose: Not Given Ondansetron HCl (Zofran) 4 mg IVPUSH ONETIME ONE Stop: 12/25/17 12:42 Last Admin: 12/25/17 13:19 Dose: 4 mg Pantoprazole Sodium (Protonix Iv) 40 mg IVPUSH ONETIME ONE Stop: 12/25/17 12:42 Last Admin: 12/25/17 13:20 Dose: 40 mg Pantoprazole Sodium (Protonix) 40 mg PO ACBREAKFAST [facility] Last Admin: 12/26/17 07:37 Dose: 40 mg Vit C/Vit E/Zinc/Copper/Lutein (Ocuvite Lutein) 1 each PO BEDTIME [facility] Last Admin: 12/25/17 21:09 Dose: 1 each - Exam Quality Assessment: Skin Breakdown (bilateral ankles ulcers present on admit) General: Alert, Mild Distress HEENT: Mucous Membr. Moist/[place] Neck: Trachea Midline, No JVD Lungs: Normal Respiratory Effort, Decreased Breath Sounds Cardiovascular: Regular Rate, Regular Rhythm GI/Abdominal Exam: Normal Bowel Sounds, Soft, Non-Tender, No Distention (Female) Exam: Deferred Back Exam: Normal Inspection Extremities: Pedal Edema Skin: Warm, Dry, Intact, Ecchymosis Wound/Incisions: Drainage, Erythema Neurological: Other (generalized weakness) Psy/Mental Status: Alert, Anxious, Agitated (at times) - Problem List & Annotations (1) Sepsis SNOMED Code(s): 72134595 Code(s): A41.9 - SEPSIS, UNSPECIFIED ORGANISM Status: Acute Priority: High Current Visit: Yes (2) COPD exacerbation SNOMED Code(s): 892472917631100 Code(s): J44.1 - CHRONIC OBSTRUCTIVE PULMONARY DISEASE W (ACUTE) EXACERBATION Status: Acute Current Visit: No Annotation/Comment:: progressive SOB of breath (3) Elevated LFTs SNOMED Code(s): 273082615, 282045351 Code(s): R79.89 - OTHER SPECIFIED ABNORMAL FINDINGS OF BLOOD CHEMISTRY Status: Acute Current Visit: No (4) Hypoalbuminemia SNOMED Code(s): 780987886 Code(s): E88.09 - [facility] DISORDERS OF PLASMA-PROTEIN METABOLISM, NEC Status: Acute Priority: Medium Current Visit: No Onset Date: 12/25/17 Annotation /Comment:: Initiate high protein Glucerna supplements as snacks (5) Hypokalemia SNOMED Code(s): 39318033 Code(s): E87.6 - HYPOKALEMIA Status: Acute Priority: Medium Current Visit: No Onset Date: 12/25/17 Annotation/Comment:: Initiate IV lactated Ringer's with caution secondary to history of CHF (6) Hypomagnesemia SNOMED Code(s): 418474430 Code(s): E83.42 - HYPOMAGNESEMIA Status: Acute Priority: Medium Current Visit: No Onset Date: 12/25/17 Annotation/Comment:: Initiate magnesium oxide therapy (7) Nausea and vomiting SNOMED Code(s): 37954815 Code(s): R11.2 - NAUSEA WITH VOMITING, UNSPECIFIED Status: Acute Priority : High Current Visit: No Onset Date: ~12/24/17 Qualifiers: Vomiting type: unspecified Vomiting Intractability: non-intractable Qualified Code(s): R11.2 - Nausea with vomiting, unspecified Annotation/Comment:: IV Zofran given upon patient's arrival to the emergency room. Additional high-dose IV Protonix and IV Pepcid as GI prophylaxis. Abdominal assessments with vitals. Secondary to fever blood cultures 2 were collected. Patient was also started on IV Cipro and IV Flagyl in the emergency room. (8) Venous stasis ulcers Status: Acute Priority: Medium Current Visit: No Onset Date: 12/25/17 Qualifiers: Venous stasis ulcer site: ankle Varicose vein presence: with varicose veins Laterality: left Non-pressure ulcer stage: limited to breakdown of skin Qualified Code(s): I83.023 - Varicose veins of left lower extremity with ulcer of ankle; L97.321 - Non-pressure chronic ulcer of left ankle limited to breakdown of skin Annotation/Comment:: History of recurrent leg and ankle ulcers as above. Note previous history of MRSA with wound culture and sensitivity, including MRSA to be collected after admission. (9) COLD, Chronic obstructive lung disease SNOMED Code(s): 34855225 Code(s): J44.9 - CHRONIC OBSTRUCTIVE PULMONARY DISEASE, UNSPECIFIED Status : Chronic Priority: Medium Current Visit: No Annotation/Comment:: Stable by history with no recent bronchitic type symptoms. Note history of nocturnal hypoxia with no current home O2 therapy by patient history. (10) Coronary artery disease SNOMED Code(s): 19129124 Code(s): I25.10 - ATHSCL HEART DISEASE OF [place] CORONARY ARTERY W/O ANG PCTRS Status: Chronic Priority: Medium Current Visit: No Qualifiers: Coronary Disease-Associated Artery/Lesion type: [place] artery [place] vs. transplanted heart: [place] heart Associated angina: without angina Qualified Code(s): I25.10 - Atherosclerotic heart disease of [place] coronary artery without angina pectoris Annotation/Comment:: No recent chest pain or anginal type symptoms. Stable by history (11) HTN, Benign hypertension SNOMED Code(s): 11983452 Code(s): I10 - ESSENTIAL (PRIMARY) HYPERTENSION Status: Chronic Priority : Medium Current Visit: No Annotation/Comment:: Blood pressure is under good control in the emergency room. Continue to observe closely during this hospitalization. (12) Heart disease SNOMED Code(s): 45482176 Code(s): I51.9 - HEART DISEASE, UNSPECIFIED Status: Chronic Priority: Medium Current Visit: No Annotation/Comment:: No anginal complaints despite mild borderline CHF with evidence of borderline incomplete right bundle branch block by today's EKG. Chest pain protocol was not initiated, however further cardiac workup depending on clinical course (13) Hyperaldosteronism SNOMED Code(s): 14410075 Code(s): E26.9 - HYPERALDOSTERONISM, UNSPECIFIED Status: Chronic Priority : Medium Current Visit: No Annotation/Comment:: PTH and phosphate level to be conducted in the a.m. (14) Hyperglycemia SNOMED Code(s): 25470665 Code(s): R73.9 - HYPERGLYCEMIA, UNSPECIFIED Status: Chronic Priority: Medium Current Visit: No Annotation/Comment:: Glycosylated hemoglobin in the a.m. (15) Hyperlipidemia SNOMED Code(s): 58951608 Code(s): E78.5 - HYPERLIPIDEMIA, UNSPECIFIED Status: Chronic Priority: Medium Current Visit: No Qualifiers: Hyperlipidemia type: unspecified Qualified Code(s): E78.5 - Hyperlipidemia , unspecified Annotation/Comment:: Lipid panel in the a.m. (16) Hypothyroidism (acquired) SNOMED Code(s): 021525850 Code(s): E03.9 - HYPOTHYROIDISM, UNSPECIFIED Status: Chronic Priority: Medium Current Visit: No Annotation/Comment:: TSH in the a.m. (17) Mixed anxiety depressive disorder SNOMED Code(s): 514752518 Code(s): F41.8 - OTHER SPECIFIED ANXIETY DISORDERS Status: Chronic Priority: Medium Current Visit: No Annotation/Comment:: Moderate control in the emergency room secondary to current illness. Note medication changes for this time. Close follow-up by regular provider (18) Osteoarthritis SNOMED Code(s): 818006609 Code(s): M19.90 - UNSPECIFIED OSTEOARTHRITIS, UNSPECIFIED SITE Status: Chronic Priority: Medium Current Visit: No Qualifiers: Osteoarthritis location: multiple joints Osteoarthritis type: primary Qualified Code(s): M15.0 - Primary generalized (osteo)arthritis Annotation/Comment:: Stable by history (19) Peptic reflux disease SNOMED Code(s): 571725749 Code(s): K21.9 - GASTRO-ESOPHAGEAL REFLUX DISEASE WITHOUT ESOPHAGITIS Status: Chronic Priority: Medium Current Visit: No Annotation/Comment:: Otherwise stable by history. Treatment as above. (20) Diarrhea SNOMED Code(s): 89362781 Code(s): R19.7 - DIARRHEA, UNSPECIFIED Status: Acute Priority: High Current Visit: Yes Qualifiers: Diarrhea type: presumed infectious Qualified Code(s): R19.7 - Diarrhea, unspecified - Problem List Review Problem List Initiated/Reviewed/Updated: Yes - My Orders Last 24 Hours: My Active Orders 12/26/17 12:00 Potassium Chloride [Klor-Con 10] 20 meq PO TID 12/26/17 16:36 STOOL CULTURE/SHIGA TOXIN [MREF] Routine 12/26/17 16:37 C DIFFICILE TOXIN BY PCR [MREF] Routine 12/26/17 16:51 Morphine 2 mg IVPUSH Q4H PRN 12/26/17 17:00 LORazepam [Ativan] 1.5 mg PO Q4H PRN 12/26/17 18:00 Magnesium Oxide 400 mg PO BID 12/26/17 20:00 Acetaminophen [Tylenol Extra Strength] 1,000 mg PO BEDTIME Albuterol/Ipratropium [DuoNeb 3.0-0.5 MG/3 ML] 3 ml NEB QIDRT LORazepam [Ativan] 1.5 mg PO TID@0800,1400,2000 diphenhydrAMINE [Benadryl] 50 mg PO BEDTIME 12/27/17 05:11 Abdomen 2V AP Flat Upright [CR] Routine Ankle 2V Bi [CR] Routine CBC WITH AUTO DIFF [HEME] DAILY CMP [COMPREHENSIVE METABOLIC PN,CMP] [CHEM] DAILY CRP [C-REACTIVE PROTEIN] [CHEM] DAILY 12/27/17 08:00 Bismuth Subsalicylate [Pepto Bismol] 30 ml PO DAILY Pantoprazole [ProTONIX IV] 40 mg IVPUSH DAILY 12/28/17 05:11 CBC WITH AUTO DIFF [HEME] DAILY CMP [COMPREHENSIVE METABOLIC PN,CMP] [CHEM] DAILY CRP [C-REACTIVE PROTEIN] [CHEM] DAILY 12/29/17 05:11 CBC WITH AUTO DIFF [HEME] DAILY CMP [COMPREHENSIVE METABOLIC PN,CMP] [CHEM] DAILY CRP [C-REACTIVE PROTEIN] [CHEM] DAILY - Plan Plan:: 12/26/17 Zechariah Garcia MD She still feels awful. Blood cultures + for aerobic and +for anerobic gram + cocci. Diarrhea. Bilateral venous stasis ulcers. Continue IV fluids and IV antibiotics. Hypokalemia. Will replace.
[2017-12-26] MEDS ORDERED: Magnesium Oxide 400 MG Tab PO SCH (18:00)
[2017-12-26 19:30] VITALS: BP 120/54
[2017-12-26] MEDS ORDERED: Albuterol/Ipratropium 3.0-0.5 MG/3 ML Neb Soln NEB SCH (20:00)
[2017-12-26] MEDS ORDERED: Acetaminophen 500 MG Tab PO SCH (20:00)
[2017-12-26] MEDS ORDERED: LORazepam 1 MG Tab PO SCH (20:00)
[2017-12-26] MEDS ORDERED: diphenhydrAMINE 25 MG Cap PO SCH (20:00)
[2017-12-26] MEDS ORDERED: Metoclopramide 10 MG/2 ML SDV IVPUSH ONE (20:26)
--- NOTE | 2017-12-26 21:04 | PCM.DCSUM1 ---
Discharge Summary - Hospital Course HPI Initial Comments: See emergency room note/admission H&P Brief History: See emergency room note/admission H&P - Discharge Data Discharge Date: 12/26/17 Discharge Disposition: DC/Tfer to Acute Hospital 02 Condition: Serious - Discharge Diagnosis/Problem(s) (1) Sepsis SNOMED Code(s): 64999956 ICD Code: A41.9 - SEPSIS, UNSPECIFIED ORGANISM Status: Acute Priority: High Current Visit: Yes Onset Date: 12/26/17 Problem Details: Note positive blood cultures both for anaerobic and aerobic gram-positive cocci with specific organism identification and sensitivities still pending. Note high- dose IV Cipro and IV Flagyl initiated in the emergency room and continued during this hospitalization. Patient is allergic to multiple antibiotics as above. ID consultation likely needed. Telephone consultation at 20:50 hours with [facility] in [place] with subsequent telephone consultation at 21:[address] Barrientos, hospitalist at [facility], who does agree to accept patient for direct admission, with no further treatment recommendations given. Patient transfer was initiated per the request of the patient and her daughter, which is reasonable secondary to her refractory symptoms. Ambulance transfer with rate manager accompaniment. Note lactic acid level was normal on admission, however was not repeated this morning. Consider repeat lactic acid level on arrival [facility] in [place]. Probable source of sepsis are patients chronic ankle ulcers with urine culture showing contamination. Qualifiers: Sepsis type: sepsis due to unspecified organism Qualified Code(s): A41.9 - Sepsis, unspecified organism (2) Nausea and vomiting SNOMED Code(s): 79690562 ICD Code: R11.2 - NAUSEA WITH VOMITING, UNSPECIFIED Status: Acute Priority: High Current Visit: Yes Onset Date: ~12/24/17 Problem Details: Patient symptoms progressing today including refractory recurrent nausea/emesis despite IV Zofran. High-dose IV Protonix and IV Pepcid were given in the emergency room as GI prophylaxis as prior to admission.. Abdominal assessments with vitals have been stable with no direct evidence of peritoneal signs. Patient was also started on IV Cipro and IV Flagyl in the emergency room with patient allergic to multiple antibiotics. Qualifiers: Vomiting type: unspecified Vomiting Intractability: non-intractable Qualified Code(s): R11.2 - Nausea with vomiting, unspecified (3) Coronary artery disease SNOMED Code(s): 91045974 ICD Code: I25.10 - ATHSCL HEART DISEASE OF [place] CORONARY ARTERY W/O ANG PCTRS Status: Chronic Priority: Medium Current Visit: Yes Problem Details: No recent chest pain or anginal type symptoms. Stable by history Qualifiers: Coronary Disease-Associated Artery/Lesion type: [place] artery [place] vs. transplanted heart: [place] heart Associated angina: without angina Qualified Code(s): I25.10 - Atherosclerotic heart disease of [place] coronary artery without angina pectoris (4) Hyperaldosteronism SNOMED Code(s): 69312823 ICD Code: E26.9 - HYPERALDOSTERONISM, UNSPECIFIED Status: Chronic Priority: Medium Current Visit: No Problem Details: PTH on this morning with results pending. Phosphate level decreased with further evaluation, treatment, etc. by accepting providers per their discretion. (5) Hyperglycemia SNOMED Code(s): 62612290 ICD Code: R73.9 - HYPERGLYCEMIA, UNSPECIFIED Status: Chronic Priority: Medium Current Visit: Yes Problem Details: Glycosylated hemoglobin normal this morning. (6) Hyperlipidemia SNOMED Code(s): 99062049 ICD Code: E78.5 - HYPERLIPIDEMIA, UNSPECIFIED Status: Chronic Priority: Medium Current Visit: Yes Problem Details: Lipid panel planned for this morning was not conducted. Observe for now. Qualifiers: Hyperlipidemia type: unspecified Qualified Code(s): E78.5 - Hyperlipidemia , unspecified (7) Hypothyroidism (acquired) SNOMED Code(s): 966432177 ICD Code: E03.9 - HYPOTHYROIDISM, UNSPECIFIED Status: Chronic Priority: Medium Current Visit: Yes Problem Details: TSH was not conducted this morning as originally planned. Consider TSH level by accepting physicians. (8) Mixed anxiety depressive disorder SNOMED Code(s): 442401543 ICD Code: F41.8 - OTHER SPECIFIED ANXIETY DISORDERS Status: Chronic Priority: Medium Current Visit: Yes Problem Details: Moderate control in the emergency room and during this hospitalization secondary to current illness. No medication changes at this time. Continue to observe closely by accepting providers with close follow-up by regular provider after hospital discharge. (9) Osteoarthritis SNOMED Code(s): 075657784 ICD Code: M19.90 - UNSPECIFIED OSTEOARTHRITIS, UNSPECIFIED SITE Status: Chronic Priority: Medium Current Visit: Yes Problem Details: Stable by history Qualifiers: Osteoarthritis location: multiple joints Osteoarthritis type: primary Qualified Code(s): M15.0 - Primary generalized (osteo)arthritis (10) Peptic reflux disease SNOMED Code(s): 420575504 ICD Code: K21.9 - GASTRO-ESOPHAGEAL REFLUX DISEASE WITHOUT ESOPHAGITIS Status: Chronic Priority: Medium Current Visit: Yes Problem Details: Otherwise stable by history. Treatment as above. (11) Venous stasis ulcers Status: Acute Priority: Medium Current Visit: No Onset Date: 12/25/17 Problem Details: Wound specimens were collected for culture and sensitivity, including MRSA, etc. with results not available at this time. Note history of recurrent leg and ankle ulcers as per emergency room note. Qualifiers: Venous stasis ulcer site: ankle Varicose vein presence: with varicose veins Laterality: left Non-pressure ulcer stage: limited to breakdown of skin Qualified Code(s): I83.023 - Varicose veins of left lower extremity with ulcer of ankle; L97.321 - Non-pressure chronic ulcer of left ankle limited to breakdown of skin (12) COLD, Chronic obstructive lung disease SNOMED Code(s): 55004629 ICD Code: J44.9 - CHRONIC OBSTRUCTIVE PULMONARY DISEASE, UNSPECIFIED Status : Chronic Priority: Medium Current Visit: Yes Problem Details: Stable by history with no recent bronchitic type symptoms. Note history of nocturnal hypoxia with no current home O2 therapy by patient history. Memo-Neb Nebulizer treatments conducted during this hospitalization with additional (13) HTN, Benign hypertension SNOMED Code(s): 68232386 ICD Code: I10 - ESSENTIAL (PRIMARY) HYPERTENSION Status: Chronic Priority : Medium Current Visit: No Problem Details: Blood pressures under good control during this hospitalization despite her sepsis. Continue to observe closely by accepting providers during that hospitalization. (14) Hypoalbuminemia SNOMED Code(s): 459468438 ICD Code: E88.09 - OTH DISORDERS OF PLASMA-PROTEIN METABOLISM, NEC Status: Acute Priority: Medium Current Visit: No Onset Date: 12/25/17 Problem Details: High protein Glucerna supplements as snacks recommended (15) Hypokalemia SNOMED Code(s): 52589455 ICD Code: E87.6 - HYPOKALEMIA Status: Acute Priority: Medium Current Visit: No Onset Date: 12/25/17 Problem Details: Initiated IV lactated Ringer 's with caution secondary to patient's history of CHF with some fluid overload noted prior to patient's transfer. Continue to observe closely by regular providers. (16) Hypomagnesemia SNOMED Code(s): 629328170 ICD Code: E83.42 - HYPOMAGNESEMIA Status: Acute Priority: Medium Current Visit: No Onset Date: 12/25/17 Problem Details: Initiated magnesium oxide therapy with continued decreased magnesium level this morning. Continue to adjust therapy by accepting providers (17) Elevated LFTs SNOMED Code(s): 708955485, 323650542 ICD Code: R79.89 - OTHER SPECIFIED ABNORMAL FINDINGS OF BLOOD CHEMISTRY Status: Acute Priority: Medium Current Visit: Yes Onset Date: 12/26/17 Problem Details: LFTs elevation likely secondary to her CHF. (18) CHF (congestive heart failure) SNOMED Code(s): 13407368 ICD Code: I50.9 - HEART FAILURE, UNSPECIFIED Status: Acute Priority: High Current Visit: Yes Onset Date: 12/26/17 Problem Details: Mild exacerbation of her CHF with some fluid overload as above. Cardiology consultation, echocardiogram, etc. depending on her clinical course. Qualifiers: Heart failure type: unspecified Heart failure chronicity: acute on chronic Qualified Code(s): I50.9 - Heart failure, unspecified - Patient Summary/Data Operative Procedure(s) Performed: None Complications: Sepsis as above Consults: None Labs Pending at D/C: 1. PTH 2. MRSA screen results 3. Final blood culture results. 4. Wound culture results from ankle ulcers bilaterally Recommended Follow-up Testing/Procedures: Not applicable Planned Operative Procedure(s) after DC: None Hospital Course: Patient was admitted for refractory nausea and emesis with aggressive therapy as above. Symptoms continued to remain refractory to therapy with progressive symptoms and development of sepsis. Note that patient was hemodynamically stable prior to discharge, however will need to be watched closely with ICU care , etc. depending on her clinical course. - Patient Instructions Diet: Fluid Restriction Activity: No Strenuous Activities Driving: Do Not Drive Wound/Incision Care: Change Dressing Daily Notify Provider of: Fever, Increased Pain, Swelling and Redness, Nausea and/or Vomiting Other/Special Instructions: Ambulance transfer with rate manager accompaniment - Discharge Plan Home Medications: Home Meds Arformoterol [Brovana] 15 mcg INH Q12HR 09/24/13 [History] Aspirin [Halfprin] 81 mg PO DAILY 09/24/13 [History] Budesonide [Pulmicort] 0.25 mg INH BID PRN 09/24/13 [History] Cholecalciferol (Vitamin D3) [Vitamin D3] 1,000 unit PO QAM 09/24/13 [History] Clopidogrel [Plavix] 75 mg PO DAILY@1200 09/24/13 [History] Etodolac [Lodine] 300 mg PO BID 09/24/13 [History] Fluticasone Propionate [Flonase] 50 mcg NASBOTH DAILY 09/24/13 [History] Furosemide [Lasix] 20 mg PO DAILY 09/24/13 [History] Hydroxychloroquine [Plaquenil] 200 mg PO DAILY 09/24/13 [History] Levothyroxine [Synthroid] 50 mcg PO BEDTIME 09/24/13 [History] Metoprolol Succinate 50 mg PO DAILY 09/24/13 [History] Pentoxifylline [TRENtal] 400 mg PO TID@0800,1200,2100 09/24/13 [History] Calcium Carbonate/Vitamin D3 [Calcium 600-Vit D3 400 Tablet] 1 tab PO DAILY@ 1200 10/21/15 [History] Lutein/Minerals/Vit A,C & E [Ocuvite] 1 tab PO BEDTIME 10/21/15 [History] Pantoprazole [ProTONIX] 40 mg PO ACBREAKFAST 10/21/15 [History] atorvaSTATin [Lipitor] 40 mg PO BEDTIME 10/21/15 [History] LORazepam 1.5 mg PO BID PRN 12/25/17 [History] Multivits-Min/Iron/FA/Lutein [Centrum Silver Women Tablet] 1 tab PO DAILY [History] Prasterone (DHEA) [Dhea 25] 25 mg PO DAILY 12/25/17 [History] Sertraline [Zoloft] 25 mg PO DAILY@1200 12/25/17 [History] traMADol HCl [Ultram] 50 mg PO Q4HR PRN 12/25/17 [History] Acetaminophen/Diphenhydramine [Tylenol Pm Ex-Strength Caplet] 2 tab PO BEDTIME 12/26/17 [History] Bismuth Subsalicylate [Pepto Bismol] 30 ml PO DAILY 12/26/17 [History] Forms: ED Department Discharge Referrals: PCP,Unknown [Primary Care Provider] - - Discharge Summary/Plan Comment DC Time >30 min.: Yes (Coordination of care ) Discharge Summary/Plan Comment: As above. Extensive precautions were given to the patient and her daughter, who are in agreement with the treatment plan. - General Info Date of Service: 12/26/17 Admission Dx/Problem (Free Text: Nausea/emesis Functional Status: Reports: Pain Controlled, Urinating, Incentive Spirometry. Denies: Tolerating Diet (Recurrent emesis), Ambulating, New Symptoms Numeric/FACES Score: 0 - Review of Systems General: Reports: Fever, Weakness, Fatigue, Malaise, Chills, Night Sweats, Appetite (Decreased appetite) HEENT: Reports: Headaches. Denies: Dysphasia, Ear Pain, Eye Pain, Post Nasal Drip, Sinus Congestion, Sore Throat, Rhinitis, Visual Changes Pulmonary: Reports: Cough. Denies: Shortness of Breath, Pleuritic Chest Pain, Sputum, Hemoptysis, Wheezing Cardiovascular: Reports: No Symptoms. Denies: Chest Pain, Palpitations, Dyspnea on Exertion, Orthopnea, Edema Gastrointestinal: Reports: Decreased Appetite, Diarrhea, Nausea, Vomiting. Denies: Abdominal Pain, Constipation, Difficulty Swallowing, Flatus, Hematochezia, Melena Genitourinary: Reports: Incontinence. Denies: Dysuria, Frequency, Burning, Pain , Urgency, Hematuria, Retention, Flank Pain Musculoskeletal: Denies: Neck Pain, Shoulder Pain, Arm Pain, Back Pain Skin: Reports: Other (Grade 2 ulcers of the ankles bilaterally). Denies: Diaphoresis Neurological: Reports: Dizziness, Headache, Difficulty Walking, Weakness. Denies: Confusion, Seizure, Syncope, Tingling, Tremors Psychiatric: Reports: Depression, Anxiety. Denies: Confusion, Agitation, Cravings, Hallucinations - Patient Data Vitals - Most Recent: Last Vital Signs Temp 37.9 C 12/26/17 19:29 Pulse 100 12/26/17 19:29 Resp 18 12/26/17 12:00 BP 120/54 L 12/26/17 19:29 Pulse Ox 95 12/26/17 19:29 Vital Signs (72 hours) 12/25/17 12/25/17 12/25/17 12:25 13:00 16:53 Temperature [ 38.8 C H 37.6 C Oral] Pulse, Peripheral Pulse, 97 95 94 Peripheral [ Pulse Oximetry] Respiratory 16 20 20 Rate Blood Pressure Blood Pressure 112/81 145/61 H 108/53 L [Right Arm] O2 Sat by Pulse 95 94 L 92 L Oximetry 12/25/17 12/26/17 12/26/17 20:53 03:57 07:38 Temperature [ 36.6 C 36.6 C Oral] Pulse, 99 Peripheral Pulse, 77 84 Peripheral [ Pulse Oximetry] Respiratory 20 Rate Blood Pressure 119/65 Blood Pressure 104/52 L 91/45 L [Right Arm] O2 Sat by Pulse 97 97 Oximetry 12/26/17 12/26/17 12/26/17 08:00 12:00 13:00 Temperature [ 37.2 C 37.1 C Oral] Pulse, Peripheral Pulse, 99 98 101 H Peripheral [ Pulse Oximetry] Respiratory 17 18 Rate Blood Pressure Blood Pressure 119/65 102/40 L 107/53 L [Right Arm] O2 Sat by Pulse 97 96 Oximetry 12/26/17 12/26/17 16:42 19:29 Temperature [ 37.3 C 37.9 C Oral] Pulse, Peripheral Pulse, 102 H 100 Peripheral [ Pulse Oximetry] Respiratory Rate Blood Pressure Blood Pressure 120/54 L [Right Arm] O2 Sat by Pulse 96 95 Oximetry Weight - Most Recent: 68.492 kg I&O - Last 24 hours: Intake & Output 12/26/17 12/26/17 12/26/17 06:59 14:59 22:59 Intake Total 300 300 Output Total 500 200 Balance -200 300 -200 Imaging Impressions - Last 24 hrs: Acute abdominal x-rays taken immediately prior to patient transfer shows moderate centralized CHF with additional mild pleural effusions and moderate COPD changes with no definite pulmonary infiltrates, pneumothorax, etc. Stable moderately elevated right hemidiaphragm with status post cholecystectomy and bilateral hip TEP. Moderate osteoarthritic and osteoporotic changes in the spine with some scoliosis. Moderate increased bowel gaseous pattern but no free air, ileus, or obstruction. Lab Results - Last 24 hrs: Laboratory Results - last 24 hr 12/25/17 12/26/17 12/26/17 Range/Units 13:05 07:05 07:05 WBC 19.3 H (4.0-10.2) K/uL RBC 3.81 (3.77-5.09) M/uL Hgb 11.7 (11.7-15.5) g/dL Hct 36.2 (34.0-46.0) % MCV 95.0 (84.0-98.0) fL MCH 30.7 (28.2-33.3) pg MCHC 32.3 (31.7-36.0) g/dL RDW 13.6 (11.2-14.1) % Plt Count 158 (150-350) K/uL Neut % (Auto) 85.3 H (45.0-80.0) % Lymph % (Auto) 5.9 L (10.0-50.0) % Ward % (Auto) 8.7 (2.0-14.0) % Eos % (Auto) 0.0 (0.0-5.0) % Baso % (Auto) 0.1 (0.0-2.0) % Neut # (Auto) 16.44 H (1.40-7.00) K/uL Lymph # (Auto) 1.14 (0.50-3.50) K/uL Ward # (Auto) 1.67 H (0.00-1.00) K/uL Eos # (Auto) 0.00 (0.00-0.50) K/uL Baso # (Auto) 0.01 (0.00-0.20) K/uL Sodium 136 (136-145) mmol/L Potassium 3.0 L (3.5-5.1) mmol/L Chloride 96 L (98-107) mmol/L Carbon Dioxide 29.2 (21.0-32.0) mmol/L BUN 18 (7-18) mg/dL Creatinine 1.09 (0.51-1.17) mg/dL Est Cr Clr Drug Dosing TNP Estimated GFR (MDRD) 48 mL/min Glucose 110 H (74-106) mg/dL Hemoglobin A1c (4.3-5.7) % Calcium 8.5 (8.5-10.1) mg/dL Phosphorus 4.6 (2.6-4.7) mg/dL Magnesium 1.4 L (1.8-2.4) mg/dL Total Bilirubin 0.7 (0.2-1.0) mg/dL AST 78 H (15-37) U/L ALT 49 (12-78) U/L Alkaline Phosphatase 80 (46-116) IU/L C-Reactive Protein 10.9 H (<=0.9) mg/dL Total Protein 6.4 (6.4-8.2) g/dL Albumin 2.7 L (3.4-5.0) g/dL Amylase 42 (25-115) U/L Lipase 83 (73-393) U/L 12/26/17 12/26/17 Range/Units 07:05 07:05 WBC (4.0-10.2) K/uL RBC (3.77-5.09) M/uL Hgb (11.7-15.5) g/dL Hct (34.0-46.0) % MCV (84.0-98.0) fL MCH (28.2-33.3) pg MCHC (31.7-36.0) g/dL RDW (11.2-14.1) % Plt Count (150-350) K/uL Neut % (Auto) (45.0-80.0) % Lymph % (Auto) (10.0-50.0) % Ward % (Auto) (2.0-14.0) % Eos % (Auto) (0.0-5.0) % Baso % (Auto) (0.0-2.0) % Neut # (Auto) (1.40-7.00) K/uL Lymph # (Auto) (0.50-3.50) K/uL Ward # (Auto) (0.00-1.00) K/uL Eos # (Auto) (0.00-0.50) K/uL Baso # (Auto) (0.00-0.20) K/uL Sodium (136-145) mmol/L Potassium (3.5-5.1) mmol/L Chloride (98-107) mmol/L Carbon Dioxide (21.0-32.0) mmol/L BUN (7-18) mg/dL Creatinine (0.51-1.17) mg/dL Est Cr Clr Drug Dosing Estimated GFR (MDRD) mL/min Glucose (74-106) mg/dL Hemoglobin A1c 5.3 (4.3-5.7) % Calcium (8.5-10.1) mg/dL Phosphorus (2.6-4.7) mg/dL Magnesium (1.8-2.4) mg/dL Total Bilirubin (0.2-1.0) mg/dL AST (15-37) U/L ALT (12-78) U/L Alkaline Phosphatase (46-116) IU/L C-Reactive Protein 24.5 H (<=0.9) mg/dL Total Protein (6.4-8.2) g/dL Albumin (3.4-5.0) g/dL Amylase (25-115) U/L Lipase (73-393) U/L Laboratory Tests 12/25/17 12/25/17 12/25/17 Range/Units 13:05 13:05 13:05 WBC 9.1 (4.0-10.2) K/uL RBC 4.08 (3.77-5.09) M/uL Hgb 12.5 D (11.7-15.5) g/dL Hct 38.2 (34.0-46.0) % MCV 93.6 (84.0-98.0) fL MCH 30.6 (28.2-33.3) pg MCHC 32.7 (31.7-36.0) g/dL RDW 13.3 (11.2-14.1) % Plt Count 157 (150-350) K/uL Neut % (Auto) 78.6 (45.0-80.0) % Lymph % (Auto) 11.2 (10.0-50.0) % Ward % (Auto) 10.0 (2.0-14.0) % Eos % (Auto) 0.1 (0.0-5.0) % Baso % (Auto) 0.1 (0.0-2.0) % Neut # (Auto) 7.15 H (1.40-7.00) K/uL Lymph # (Auto) 1.02 (0.50-3.50) K/uL Ward # (Auto) 0.91 (0.00-1.00) K/uL Eos # (Auto) 0.01 (0.00-0.50) K/uL Baso # (Auto) 0.01 (0.00-0.20) K/uL PT 11.4 (9.8-11.7) SEC INR 1.1 APTT 26.5 (22.1-29.8) SEC Sodium (136-145) mmol/L Potassium (3.5-5.1) mmol/L Chloride (98-107) mmol/L Carbon Dioxide (21.0-32.0) mmol/L BUN (7-18) mg/dL Creatinine (0.51-1.17) mg/dL Est Cr Clr Drug Dosing Estimated GFR (MDRD) mL/min Glucose (74-106) mg/dL Hemoglobin A1c (4.3-5.7) % Lactic Acid (0.4-2.0) mmol/L Uric Acid (2.6-7.2) mg/dL Calcium (8.5-10.1) mg/dL Phosphorus (2.6-4.7) mg/dL Magnesium (1.8-2.4) mg/dL Total Bilirubin (0.2-1.0) mg/dL AST (15-37) U/L ALT (12-78) U/L Alkaline Phosphatase (46-116) IU/L C-Reactive Protein (<=0.9) mg/dL Total Protein (6.4-8.2) g/dL Albumin (3.4-5.0) g/dL Amylase 45 (25-115) U/L Lipase (73-393) U/L Specimen Type Urine Color Urine Appearance Urine pH (5.0-9.0) Ur Specific [place] (1.005-1.030) Urine Protein (NEGATIVE) mg/dL Urine Glucose (UA) (NEGATIVE) mg/dL Urine Ketones (NEGATIVE) mg/dL Urine Occult Blood (NEGATIVE) Urine Nitrite (NEGATIVE) Urine Bilirubin (NEGATIVE) Urine Urobilinogen (0.2-1.0) E.U./dL Ur Leukocyte Esterase (NEGATIVE) Urine RBC /HPF Urine WBC /HPF Ur Epithelial Cells /LPF Urine Bacteria (NONE TO FEW) /HPF 12/25/17 12/25/17 12/25/17 Range/Units 13:05 13:05 13:05 WBC (4.0-10.2) K/uL RBC (3.77-5.09) M/uL Hgb (11.7-15.5) g/dL Hct (34.0-46.0) % MCV (84.0-98.0) fL MCH (28.2-33.3) pg MCHC (31.7-36.0) g/dL RDW (11.2-14.1) % Plt Count (150-350) K/uL Neut % (Auto) (45.0-80.0) % Lymph % (Auto) (10.0-50.0) % Ward % (Auto) (2.0-14.0) % Eos % (Auto) (0.0-5.0) % Baso % (Auto) (0.0-2.0) % Neut # (Auto) (1.40-7.00) K/uL Lymph # (Auto) (0.50-3.50) K/uL Ward # (Auto) (0.00-1.00) K/uL Eos # (Auto) (0.00-0.50) K/uL Baso # (Auto) (0.00-0.20) K/uL PT (9.8-11.7) SEC INR APTT (22.1-29.8) SEC Sodium 137 (136-145) mmol/L Potassium 3.2 L (3.5-5.1) mmol/L Chloride 98 (98-107) mmol/L Carbon Dioxide 29.3 (21.0-32.0) mmol/L BUN 9 (7-18) mg/dL Creatinine 0.67 (0.51-1.17) mg/dL Est Cr Clr Drug Dosing TNP Estimated GFR (MDRD) > 60 mL/min Glucose 120 H (74-106) mg/dL Hemoglobin A1c (4.3-5.7) % Lactic Acid 1.3 (0.4-2.0) mmol/L Uric Acid 2.2 L (2.6-7.2) mg/dL Calcium 8.9 (8.5-10.1) mg/dL Phosphorus (2.6-4.7) mg/dL Magnesium 1.4 L (1.8-2.4) mg/dL Total Bilirubin 0.6 (0.2-1.0) mg/dL AST 51 H (15-37) U/L ALT 49 (12-78) U/L Alkaline Phosphatase 94 (46-116) IU/L C-Reactive Protein 10.9 H (<=0.9) mg/dL Total Protein 6.7 (6.4-8.2) g/dL Albumin 3.0 L (3.4-5.0) g/dL Amylase (25-115) U/L Lipase 144 (73-393) U/L Specimen Type Urine Color Urine Appearance Urine pH (5.0-9.0) Ur Specific [place] (1.005-1.030) Urine Protein (NEGATIVE) mg/dL Urine Glucose (UA) (NEGATIVE) mg/dL Urine Ketones (NEGATIVE) mg/dL Urine Occult Blood (NEGATIVE) Urine Nitrite (NEGATIVE) Urine Bilirubin (NEGATIVE) Urine Urobilinogen (0.2-1.0) E.U./dL Ur Leukocyte Esterase (NEGATIVE) Urine RBC /HPF Urine WBC /HPF Ur Epithelial Cells /LPF Urine Bacteria (NONE TO FEW) /HPF 12/25/17 12/26/17 12/26/17 Range/Units 13:46 07:05 07:05 WBC 19.3 H (4.0-10.2) K/uL RBC 3.81 (3.77-5.09) M/uL Hgb 11.7 (11.7-15.5) g/dL Hct 36.2 (34.0-46.0) % MCV 95.0 (84.0-98.0) fL MCH 30.7 (28.2-33.3) pg MCHC 32.3 (31.7-36.0) g/dL RDW 13.6 (11.2-14.1) % Plt Count 158 (150-350) K/uL Neut % (Auto) 85.3 H (45.0-80.0) % Lymph % (Auto) 5.9 L (10.0-50.0) % Ward % (Auto) 8.7 (2.0-14.0) % Eos % (Auto) 0.0 (0.0-5.0) % Baso % (Auto) 0.1 (0.0-2.0) % Neut # (Auto) 16.44 H (1.40-7.00) K/uL Lymph # (Auto) 1.14 (0.50-3.50) K/uL Ward # (Auto) 1.67 H (0.00-1.00) K/uL Eos # (Auto) 0.00 (0.00-0.50) K/uL Baso # (Auto) 0.01 (0.00-0.20) K/uL PT (9.8-11.7) SEC INR APTT (22.1-29.8) SEC Sodium 136 (136-145) mmol/L Potassium 3.0 L (3.5-5.1) mmol/L Chloride 96 L (98-107) mmol/L Carbon Dioxide 29.2 (21.0-32.0) mmol/L BUN 18 (7-18) mg/dL Creatinine 1.09 (0.51-1.17) mg/dL Est Cr Clr Drug Dosing TNP Estimated GFR (MDRD) 48 mL/min Glucose 110 H (74-106) mg/dL Hemoglobin A1c (4.3-5.7) % Lactic Acid (0.4-2.0) mmol/L Uric Acid (2.6-7.2) mg/dL Calcium 8.5 (8.5-10.1) mg/dL Phosphorus 4.6 (2.6-4.7) mg/dL Magnesium 1.4 L (1.8-2.4) mg/dL Total Bilirubin 0.7 (0.2-1.0) mg/dL AST 78 H (15-37) U/L ALT 49 (12-78) U/L Alkaline Phosphatase 80 (46-116) IU/L C-Reactive Protein (<=0.9) mg/dL Total Protein 6.4 (6.4-8.2) g/dL Albumin 2.7 L (3.4-5.0) g/dL Amylase 42 (25-115) U/L Lipase 83 (73-393) U/L Specimen Type Urinvoid Urine Color Yellow Urine Appearance Clear Urine pH 6.0 (5.0-9.0) Ur Specific [place] 1.010 (1.005-1.030) Urine Protein Negative (NEGATIVE) mg/dL Urine Glucose (UA) Negative (NEGATIVE) mg/dL Urine Ketones Negative (NEGATIVE) mg/dL Urine Occult Blood Trace-intact H (NEGATIVE) Urine Nitrite Negative (NEGATIVE) Urine Bilirubin Moderate H (NEGATIVE) Urine Urobilinogen 0.2 (0.2-1.0) E.U./dL Ur Leukocyte Esterase Trace H (NEGATIVE) Urine RBC 0-5 /HPF Urine WBC 5-10 H /HPF Ur Epithelial Cells Few /LPF Urine Bacteria Few (NONE TO FEW) /HPF 12/26/17 12/26/17 Range/Units 07:05 07:05 WBC (4.0-10.2) K/uL RBC (3.77-5.09) M/uL Hgb (11.7-15.5) g/dL Hct (34.0-46.0) % MCV (84.0-98.0) fL MCH (28.2-33.3) pg MCHC (31.7-36.0) g/dL RDW (11.2-14.1) % Plt Count (150-350) K/uL Neut % (Auto) (45.0-80.0) % Lymph % (Auto) (10.0-50.0) % Ward % (Auto) (2.0-14.0) % Eos % (Auto) (0.0-5.0) % Baso % (Auto) (0.0-2.0) % Neut # (Auto) (1.40-7.00) K/uL Lymph # (Auto) (0.50-3.50) K/uL Ward # (Auto) (0.00-1.00) K/uL Eos # (Auto) (0.00-0.50) K/uL Baso # (Auto) (0.00-0.20) K/uL PT (9.8-11.7) SEC INR APTT (22.1-29.8) SEC Sodium (136-145) mmol/L Potassium (3.5-5.1) mmol/L Chloride (98-107) mmol/L Carbon Dioxide (21.0-32.0) mmol/L BUN (7-18) mg/dL Creatinine (0.51-1.17) mg/dL Est Cr Clr Drug Dosing Estimated GFR (MDRD) mL/min Glucose (74-106) mg/dL Hemoglobin A1c 5.3 (4.3-5.7) % Lactic Acid (0.4-2.0) mmol/L Uric Acid (2.6-7.2) mg/dL Calcium (8.5-10.1) mg/dL Phosphorus (2.6-4.7) mg/dL Magnesium (1.8-2.4) mg/dL Total Bilirubin (0.2-1.0) mg/dL AST (15-37) U/L ALT (12-78) U/L Alkaline Phosphatase (46-116) IU/L C-Reactive Protein 24.5 H (<=0.9) mg/dL Total Protein (6.4-8.2) g/dL Albumin (3.4-5.0) g/dL Amylase (25-115) U/L Lipase (73-393) U/L Specimen Type Urine Color Urine Appearance Urine pH (5.0-9.0) Ur Specific [employer] (1.005-1.030) Urine Protein (NEGATIVE) mg/dL Urine Glucose (UA) (NEGATIVE) mg/dL Urine Ketones (NEGATIVE) mg/dL Urine Occult Blood (NEGATIVE) Urine Nitrite (NEGATIVE) Urine Bilirubin (NEGATIVE) Urine Urobilinogen (0.2-1.0) E.U./dL Ur Leukocyte Esterase (NEGATIVE) Urine RBC /HPF Urine WBC /HPF Ur Epithelial Cells /LPF Urine Bacteria (NONE TO FEW) /HPF TRI Results - Last 24 hrs: Microbiology 12/25/17 13:00 Aerobic Blood Culture - Preliminary Blood - Venous Anaerobic Blood Culture - Preliminary 12/25/17 13:05 Aerobic Blood Culture - Preliminary Blood - Venous - Lab Draw NO GROWTH AFTER 1 DAY Anaerobic Blood Culture - Preliminary NO GROWTH AFTER 1 DAY 12/25/17 13:46 Urine Culture - Final Urine, Clean Catch MIXED TEDDY SUGGESTIVE OF CONTAMINATION. 12/26/17 08:09 Stool Occult Blood (TRI) - Final Stool / Feces NEGATIVE OCCULT BLOOD Med Orders - Current: Current Medications Acetaminophen (Tylenol) 650 mg PO Q4H PRN PRN Reason: Pain Last Admin: 12/26/17 10:18 Dose: 650 mg Acetaminophen (Tylenol Extra Strength) 1,000 mg PO BEDTIME [facility] Albuterol (Proventil Neb Soln) 2.5 mg INH Q2H PRN PRN Reason: SHORTNESS OF BREATH Albuterol/Ipratropium (Duoneb 3.0-0.5 Mg/3 Ml) 3 ml NEB Q4HRRT PRN PRN Reason: Dyspnea Albuterol/Ipratropium (Duoneb 3.0-0.5 Mg/3 Ml) 3 ml NEB QIDRT [facility] Arformoterol Tartrate (Brovana) 15 mcg INH Q12HR [facility] Last Admin: 12/26/17 10:27 Dose: 15 mcg Bismuth Subsalicylate (Pepto Bismol) 30 ml PO DAILY [facility] Budesonide (Pulmicort) 0.25 mg NEB BIDRT [facility] Last Admin: 12/26/17 10:37 Dose: 0.25 mg Diphenhydramine HCl (Benadryl) 50 mg PO BEDTIME [facility] Fluticasone Propionate (Flonase) 0 gm NASBOTH DAILY [facility] Last Admin: 12/26/17 10:17 Dose: 2 sprays Ciprofloxacin/Dextrose 200 mg/ (Premix) 100 mls @ 100 mls/hr IV Q12HR [facility] Last Admin: 12/26/17 19:27 Dose: 100 mls/hr Metronidazole 500 mg/ Premix 100 mls @ 100 mls/hr IV Q8H [facility] Last Admin: 12/26/17 12:41 Dose: 100 mls/hr Lactated Ringer's (Ringers, Lactated) 1,000 mls @ 80 mls/hr IV ASDIRECTED [facility] Last Admin: 12/26/17 14:10 Dose: 80 mls/hr Levothyroxine Sodium (Synthroid) 50 mcg PO BEDTIME [facility] Last Admin: 12/25/17 21:10 Dose: 50 mcg Lorazepam (Ativan) 1.5 mg PO Q4H PRN PRN Reason: Anxiety Lorazepam (Ativan) 1.5 mg PO TID@0800,1400,2000 [facility] Last Admin: 12/26/17 19:27 Dose: 1.5 mg Magnesium Oxide (Magnesium Oxide) 400 mg PO BID [facility] Morphine Sulfate (Morphine) 2 mg IVPUSH Q4H PRN PRN Reason: Pain Dhea 25 Mg Capsule * (*Own Med) 0 mg PO DAILY [facility] Last Admin: 12/26/17 10:17 Dose: 25 mg Ondansetron HCl (Zofran) 4 mg IVPUSH Q6H PRN PRN Reason: Nausea/Vomiting Last Admin: 12/26/17 18:24 Dose: 4 mg Pantoprazole Sodium (Protonix Iv) 40 mg IVPUSH DAILY [facility] Pentoxifylline (Trental) 400 mg PO TID@0800,1200,2100 [facility] Last Admin: 12/26/17 12:40 Dose: 400 mg Potassium Chloride (Klor-Con 10) 20 meq PO TID [facility] Last Admin: 12/26/17 12:41 Dose: 20 meq Sertraline HCl (Zoloft) 25 mg PO DAILY@1200 [facility] Last Admin: 12/26/17 12:40 Dose: 25 mg Sodium Chloride (Saline Flush) 10 ml FLUSH ASDIRECTED PRN PRN Reason: Keep Vein Open Last Admin: 12/26/17 12:42 Dose: 10 ml Sodium Chloride (Saline Flush) 10 ml FLUSH Q12HR [facility] Last Admin: 12/26/17 20:46 Dose: 10 ml Tramadol HCl (Ultram) 50 mg PO Q4HR PRN PRN Reason: Pain Last Admin: 12/26/17 10:26 Dose: 50 mg Discontinued Medications Albuterol/Ipratropium (Duoneb 3.0-0.5 Mg/3 Ml) 3 ml NEB Q6HRRT [facility] Last Admin: 12/26/17 13:40 Dose: 3 ml Aspirin (Halfprin) 81 mg PO DAILY [facility] Last Admin: 12/26/17 07:37 Dose: 81 mg Atorvastatin Calcium (Lipitor) 40 mg PO BEDTIME [facility] Last Admin: 12/25/17 21:10 Dose: 40 mg Calcium Carbonate (Caltrate 600+D 1500 Mg-400 Units) 1 tab PO DAILY@1200 [facility] Cholecalciferol (Vitamin D3) 1,000 units PO DAILY@1200 [facility] Last Admin: 12/26/17 12:40 Dose: 1,000 units Clopidogrel Bisulfate (Plavix) 75 mg PO DAILY@1200 [facility] Enoxaparin Sodium (Lovenox) 30 mg SUBCUT Q24H [facility] Last Admin: 12/25/17 18:08 Dose: 30 mg Famotidine (Pepcid) 40 mg IVPUSH ONETIME ONE Stop: 12/25/17 12:42 Last Admin: 12/25/17 13:20 Dose: 40 mg Furosemide (Lasix) 20 mg PO DAILY [facility] Last Admin: 12/26/17 07:37 Dose: 20 mg Hydroxychloroquine Sulfate (Plaquenil) 200 mg PO DAILY [facility] Last Admin: 12/26/17 07:38 Dose: 200 mg Hydroxychloroquine Sulfate (Plaquenil) 200 mg PO DAILY@1200 [facility] Lorazepam (Ativan) 1.5 mg PO BID PRN PRN Reason: Anxiety Last Admin: 12/26/17 10:09 Dose: 1.5 mg Magnesium Oxide (Magnesium Oxide) 400 mg PO DAILY [facility] Last Admin: 12/26/17 07:36 Dose: 400 mg Metoclopramide HCl (Reglan) 10 mg IVPUSH ONETIME ONE Stop: 12/26/17 20:27 Last Admin: 12/26/17 20:45 Dose: 10 mg Metoprolol Succinate (Toprol Xl) 50 mg PO DAILY [facility] Last Admin: 12/26/17 07:38 Dose: 50 mg Multivitamins/Minerals/Vitamin C (Tab-A-Gerardo) 1 tab PO DAILY [facility] Last Admin: 12/26/17 07:37 Dose: 1 tab Nifedipine (Procardia Xl) 30 mg PO DAILY [facility] Last Admin: 12/26/17 10:37 Dose: Not Given Non-Formulary Medication (Acetylcysteine) 3 ml NEB TIDRT [facility] Last Admin: 12/26/17 10:38 Dose: Not Given Etodolac [Lodine] (300 Mg) Capsules) 300 mg PO BID [facility] Last Admin: 12/26/17 19:16 Dose: Not Given Ondansetron HCl (Zofran) 4 mg IVPUSH ONETIME ONE Stop: 12/25/17 12:42 Last Admin: 12/25/17 13:19 Dose: 4 mg Pantoprazole Sodium (Protonix Iv) 40 mg IVPUSH ONETIME ONE Stop: 12/25/17 12:42 Last Admin: 12/25/17 13:20 Dose: 40 mg Pantoprazole Sodium (Protonix) 40 mg PO ACBREAKFAST [facility] Last Admin: 12/26/17 07:37 Dose: 40 mg Vit C/Vit E/Zinc/Copper/Lutein (Ocuvite Lutein) 1 each PO BEDTIME [facility] Last Admin: 12/25/17 21:09 Dose: 1 each - Exam Quality Assessment: Reports: Supplemental Oxygen, DVT Prophylaxis, Skin Breakdown (Stable venous stasis ulcers from admission). Denies: Central Line/ PICC, Urine Catheter, Restraints General: Reports: Alert, Oriented, Cooperative, Mild Distress HEENT: Reports: Pupils Equal, Pupils Reactive, EOMI, Mucous Membr. Moist/[place] Neck: Reports: Supple, No JVD, No Thyromegaly, Carotid Bruit (Mild bilateral carotid bruits). Denies: Lymphadenopathy Lungs: Reports: Normal Respiratory Effort, Rales (Mild bilateral basilar rales) . Denies: Rhonchi, Rub, Wheezing Cardiovascular: Reports: No Murmurs, Tachycardia (Regular rhythm). Denies: Gallops, Rubs GI/Abdominal Exam: Normal Bowel Sounds, Soft, Non-Tender, No Organomegaly, No Distention, No Abnormal Bruit, No Mass, Other (Obese). No: Guarding (Female) Exam: Deferred Rectal (Female) Exam: Deferred Back Exam: Reports: Normal Inspection, Full Range of Motion, Other (Scoliosis). Denies: CVA Tenderness (L), CVA Tenderness (R), Muscle Spasm Extremities: No Pedal Edema, Leg Pain (Site of venous stasis ulcers), Other ( Stable grade 2 venous stasis ulcers of the ankles bilaterally as per emergency room note and addendum). No: Luciano's Sign Skin: Reports: Other (As above) Wound/Incisions: Reports: Drainage (Mild), Erythema (Trace). Denies: Decubitis Neurological: Reports: No New Focal Deficit Psy/Mental Status: Reports: Alert, Anxious (Moderate), Depressed (Moderate), Agitated. Denies: Hallucinations, Withdrawal Symptoms
[2017-12-26] MEDS: Levothyroxine 50 MCG Tab PO SCH (21:48)
[2017-12-27] MEDS ORDERED: Pantoprazole 40 MG Vial IVPUSH SCH (08:00)
[2017-12-27] MEDS ORDERED: Bismuth Subsalicylate 262 MG/15 ML Susp 236 ML Bottle PO SCH (08:00)
[2017-12-27] MEDS ORDERED: Hydroxychloroquine 200 MG Tab PO SCH (12:00)
== END 2017-12-26 21:48 | DRG 872 ==
LOC: LL.ED 12:23 → LL.MS 14:45
PROVIDERS: ADMIT Family Medicine; ATTEND Family Medicine
DX: R11.2 Nausea with vomiting, unspecified (principal); J44.9 Chronic obstructive pulmonary disease, unspecified; A41.9 Sepsis, unspecified organism; J44.1 Chronic obstructive pulmonary disease with (acute) exacerbation; L97.321 Non-pressure chronic ulcer of left ankle limited to breakdown of skin; A09 Infectious gastroenteritis and colitis, unspecified; I25.10 Atherosclerotic heart disease of native coronary artery without angina pectoris; E26.9 Hyperaldosteronism, unspecified; R73.9 Hyperglycemia, unspecified; E78.5 Hyperlipidemia, unspecified; E03.9 Hypothyroidism, unspecified; F41.8 Other specified anxiety disorders; M19.90 Unspecified osteoarthritis, unspecified site; K21.9 Gastro-esophageal reflux disease without esophagitis; E87.6 Hypokalemia; E83.42 Hypomagnesemia; R94.5 Abnormal results of liver function studies; Z88.0 Allergy status to penicillin; Z88.2 Allergy status to sulfonamides; H35.30 Unspecified macular degeneration; I73.9 Peripheral vascular disease, unspecified; Z86.718 Personal history of other venous thrombosis and embolism; I87.8 Other specified disorders of veins; I11.0 Hypertensive heart disease with heart failure; I50.9 Heart failure, unspecified; M81.0 Age-related osteoporosis without current pathological fracture; M41.9 Scoliosis, unspecified; Z87.891 Personal history of nicotine dependence; Z79.899 Other long term (current) drug therapy; Z79.82 Long term (current) use of aspirin; Z86.14 Personal history of Methicillin resistant Staphylococcus aureus infection
CPT/HCPCS: 36415; 74022; 80053; 81001; 82150; 83605; 83690; 83735; 84550; 85025; 85610; 85730; 86140; 87040 ×2; 87086; 96374; 96375; 99285; C9113; J2405; J7050; 82272; 83036; 83970; 84100; 87070; 87077; 87338; 87641; 94640; A9270-GY; J0744; J1650; J2765; J7120; S0028

== ENCOUNTER 2019-03-28 13:39 | Emergency (ER) | payer MEDICARE, BC ==
--- NOTE | 2019-03-28 13:55 | EDM.PDOC ---
ED HPI GENERAL MEDICAL PROBLEM - General Chief Complaint: Lower Extremity Injury/Pain Stated Complaint: foot pain Time Seen by Provider: 03/28/19 13:45 Source of Information: Reports: Patient, Old Records ([facility] chart/EMR), Other ( EMR ) History Limitations: Reports: Altered Mental Status - History of Present Illness INITIAL COMMENTS - FREE TEXT/NARRATIVE: The patient drove herself to the emergency room for evaluation of 04/01 left leg pain, which appears to be worse when using her recently prescribed Acu-Coat dressing. Patient did see her linen room supervisor/wound care clinic on 03/27 and was prescribed hydrocodone and minocycline therapy at that time with patient just starting these medications this morning at 9 AM. She has not taken any other pain medications since that time. Wound continues to drain to moderate degree. Note that she has had recurrence of her grade 2 ulcer for the last 6 months after a minor injury, i.e., hitting the leg on a chair at that time. She does have a history of multiple previous skin grafts secondary to refractory leg ulcers as below. The patient also denies any recent fever, cough, wheezing, dyspnea, etc.. No recent history of abdominal pain, heartburn, nausea, diarrhea , melena, gross hematochezia, or any food intolerance, including fatty foods, etc.. She denies any gross hematuria, colic, or other UTI symptoms. The patient denies any chest pain/pressure, heart flutter, dizziness, orthostasis, orthopnea , diaphoresis, paresthesias, recent decreased exercise tolerance, or any other anginal-type symptoms. She is a somewhat poor historian. Onset: Gradual, Other (As above) Duration: Constant, Getting Worse Location: Reports: Lower Extremity, Left. Denies: Head, Face, Neck, Chest, Abdomen, Back, Pelvis, Upper Extremity, Left, Upper Extremity, Right, Lower Extremity, Right, Radiates to Quality: Reports: Ache, Same as Previous Episode, Throbbing Severity: Severe Improves with: Reports: None Worsens with: Reports: None Context: Reports: Other (As above) Associated Symptoms: Denies: Confusion, Chest Pain, cough w sputum, Diaphoresis , Fever/Chills, Headaches, Loss of Appetite, Nausea/Vomiting, Rash, Seizure, Shortness of Breath, Weakness Treatments RAMP BOSS: Reports: Acetaminophen, Other Medication(s) Other Treatments RAMP BOSS: hydrocodone as above Left Ankle Pain Score (Numeric/FACES): 9 - Related Data Allergies Allergy/AdvReac Type Severity Reaction Status Date / Time cefazolin Allergy Hives Verified 03/28/19 13:56 cephalexin [Cephalexin] Allergy Hives Verified 03/28/19 13:56 clindamycin Allergy Rash Verified 03/28/19 13:56 lincomycin HCl Allergy Rash Verified 03/28/19 13:56 [From Lincocin] Penicillins Allergy Hives Verified 03/28/19 13:56 sulfamethoxazole Allergy Hives Verified 03/28/19 13:56 [From Bactrim] trimethoprim [From Bactrim] Allergy Hives Verified 03/28/19 13:56 vancomycin Allergy Rash Verified 03/28/19 13:56 adhesive tape Allergy Rash Uncoded 03/28/19 13:56 Home Meds: Home Meds Aspirin [Halfprin] 81 mg PO DAILY 09/24/13 [History] Clopidogrel [Plavix] 75 mg PO DAILY@1200 09/24/13 [History] Fluticasone Propionate [Flonase] 50 mcg NASBOTH DAILY 09/24/13 [History] Furosemide [Lasix] 20 mg PO DAILY 09/24/13 [History] Hydroxychloroquine [Plaquenil] 200 mg PO DAILY 09/24/13 [History] Levothyroxine [Synthroid] 50 mcg PO DAILY@1400 09/24/13 [History] Metoprolol Succinate 50 mg PO DAILY 09/24/13 [History] Pentoxifylline [TRENtal] 400 mg PO TID@0800,1200,2100 09/24/13 [History] atorvaSTATin [Lipitor] 40 mg PO BEDTIME 10/21/15 [History] LORazepam 0.5 mg PO BEDTIME 12/25/17 [History] Multivits-Min/Iron/FA/Lutein [Centrum Silver Women Tablet] 1 tab PO DAILY [History] Acetaminophen [Tylenol] 650 mg PO Q6HR 01/30/18 [History] Loperamide HCl [Imodium A-D] 2 mg PO ASDIRECTED PRN 01/30/18 [History] Magnesium Oxide [Magnesium] 500 mg PO DAILY 01/30/18 [History] Saccharomyces Boulardii [Florastor] 250 mg PO Q12HR 01/30/18 [History] Sod Phos Di, [place]/K Phos [place] [Phospho-[place] 250 Neutral Tab] 250 mg PO Q12HR 06/09 [History] Trolamine Salicylate/Aloe Vera [Analgesic Creme 10% Cream] 1 applic TD Q6HR 06/09 [History] Acetaminophen/HYDROcodone [[place] 325-5 MG] 1 tab PO Q6H PRN 02/14/18 [History] Famotidine [Pepcid AC] 20 mg PO BID 02/14/18 [History] Mag Hydrox/Aluminum Hyd/Simeth [Antacid Liquid] 15 - 30 ml PO ASDIRECTED PRN [History] Melatonin [Melatin] 3 mg PO BEDTIME 02/14/18 [History] Minocycline [Minocin] 1 cap PO BID 03/28/19 [History] Past Medical History HEENT History: Reports: Allergic Rhinitis, Impaired Vision, Macular Degeneration , Other (See Below). Denies: Cataract, Glaucoma, Hard of Hearing, Retinal Detachment, Sinusitis Other HEENT History: Patient wears glasses. Cardiovascular History: Reports: Arrhythmia, Blood Clots/VTE/DVT, CAD, Cardiomyopathy, Heart Failure, Heart Murmur, High Cholesterol, Hypertension, SD , PVD, Other (See Below). Denies: Afib, Aneurysm, Bypass, Stents Other Cardiovascular History: SD in 1990. DVT of the left distal femoral vein on 02/09/16. Peripheral vascular disease with secondary refractory bilateral lower extremities ulcers as below. Varicose veins. Borderline incomplete right bundle branch block. Mild mitral and tricuspid valve insufficiency by echocardiogram with additional grade 1 diastolic dysfunction. Respiratory History: Reports: Bronchitis, Recurrent, COPD, Intubation, Previous , Pneumonia, Recurrent, Pulmonary Fibrosis, Other (See Below). Denies: Intubation, Difficult, PE, Pneumothorax, Sleep Apnea, TB Other Respiratory History: Nocturnal hypoxia with no current oxygen supplementation. Chronic left hemidiaphragm elevation. Gastrointestinal History: Reports: Cholelithiasis, Diverticulosis, Fecal Incontinence, GERD, Helicobacter Pylori, Other (See Below). Denies: Bowel Obstruction, Celiac Disease, Chronic Constipation, Chronic Diarrhea, Colon Polyp , GI Bleed, Hepatitis, Hiatal Hernia, Inflammatory Bowel Disease, Irritable Bowel Syndrome, Jaundice, PUD Other Gastrointestinal History: History of colitis of unknown etiology. Genitourinary History: Reports: Chronic Renal Insuffiency, Retention, Urinary. Denies: Acute Renal Failure, Renal Calculus, STD, Urinary Incontinence, UTI, Recurrent WASTE MANAGEMENT RECYCLING TECHNICIAN History: Reports: : 4 Para: 4 Other WASTE MANAGEMENT RECYCLING TECHNICIAN History: Menopause in her 50s. Full term without complications during pregnancies or deliveries, however note of last at one day of age as below. Musculoskeletal History: Reports: Arthritis, Back Pain, Chronic, Fracture, Neck Pain, Chronic, Osteoarthritis, Osteoporosis, SLE, Other (See Below). Denies: Amputation, Gout, RA Other Musculoskeletal History: Multiple thoracic vertebral body compression fracture secondary to her osteoporosis. Moderate scoliosis. SLE with recurrent bilateral leg ulcers. Neurological History: Reports: CVA, Headaches, Chronic, TIA, Other (See Below). Denies: Cerebral Aneurysms, Concussion, Head Trauma, Migraines, MS, Neuropathy , Diabetic, Neuropathy, Peripheral, Seizure, Vertigo Other Neuro History: Borderline CVA versus TIA on 02/03/[address] scan of the head with requested MRIs of the head and neck not conducted at [facility] at that time per their EMR records as below. Cerebral microvascular disease by CT scan. Psychiatric History: Reports: Addiction, Anxiety, Dementia, Psych Hospitalization(s), Other (See Below). Denies: Abuse, Victim of, ADD, ADHD, PTSD, Suicide Attempt, Suicidal Ideation Other Psychiatric History: Chronic insomnia. Previous chronic use of tramadol and narcotics secondary to chronic pain syndrome. Endocrine/Metabolic History: Reports: Hypothyroidism, Obesity/BMI 30+, Osteopenia, Osteoporosis, Vitamin D Deficiency, Other (See Below). Denies: Diabetes, Gestational, Diabetes, Type I, Diabetes, Type II, Diabetes Mellitus, Type 3c, IDDM Other Endocrine/Metabolic History: Hyperglycemia. Hyperaldosteronism with hyperphosphatemia. Hypoalbuminemia. Hypokalemia. Hematologic History: Reports: Anemia, Blood Transfusion(s), Other (See Below) Other Hematologic History: Anemia of unknown etiology however possibly secondary to her chronic renal insufficiency, with no apparent previous workup; previous blood transfusions on 01/08/18 and 02/14/18. Immunologic History: Reports: Immunosuppression, SLE, Other (See Below). Denies : AIDS, HIV Other Immunologic History: Current Plaquenil therapy Oncologic (Cancer) History: Reports: None. Denies: Basal Cell Carcinoma, Breast , Cervix, Colon, Hodgkin's Lymphoma, Leukemia, Lymphoma, Malignant Melanoma, Non -Hodgkin's Lymphoma, Ovarian, Squamous Cell Carcinoma, Uterine Dermatologic History: Reports: Cellulitis, Chronic Cellulitis, Venous Stasis Dermatitis, Other (See Below). Denies: Eczema, Psoriasis Other Dermatologic History: Chronic bilateral leg ulcers secondary to SLE and peripheral vascular disease as above with recurrent cellulitis, including previous MRSA. - Infectious Disease History Infectious Disease History: Reports: MRSA (From her legs bilaterally from chronic ulcers) - Past Surgical History Head Surgeries/Procedures: Reports: None HEENT Surgical History: Reports: Oral Surgery, Other (See Below). Denies: Adenoidectomy, Cataract Surgery, Eye Surgery, Laser Surgery, LASIK, Myringotomy w Tube(s), Naso-Sinus Surgery, Tonsillectomy Other HEENT Surgeries/Procedures: Complete teeth extraction with current complete dentures. Cardiovascular Surgical History: Reports: None. Denies: Varicose Respiratory Surgical History: Reports: None. Denies: Thoracentesis GI Surgical History: Reports: Appendectomy, Cholecystectomy, Colonoscopy, EGD, Other (See Below). Denies: Hernia, Abdominal, Hernia, Inguinal, Hernia Repair/ Other, Polypectomy Other GI Surgeries/Procedures: Appendectomy in the 1940s. Laparoscopic cholecystectomy. EGD on 06/01/11. Colonoscopy in the . Female Surgical History: Reports: None. Denies: D&C, Hysterectomy, Salpingo- Oophorectomy, Tubal Ligation Endocrine Surgical History: Reports: None. Denies: Thyroid Biopsy Neurological Surgical History: Reports: None. Denies: C-Spine, Discectomy, Laminectomy, Lumbar Spine, Sacral Spine, Spinal Fusion, Thoracic Spine, Vertebroplasty Musculoskeletal Surgical History: Reports: Arthroscopic Procedure, Joint Replacement, Knee Replacement, Other (See Below). Denies: Carpal Tunnel, Ganglion Cyst Other Musculoskeletal Surgeries/Procedures:: Right shoulder arthroscopic surgery including flushing procedure on 12/27/17 secondary to septic joint. Bilateral hip TEP. Bilateral Total knee arthroplasty on 03/21/04 and 07/18/04. Oncologic Surgical History: Reports: None Dermatological Surgical History: Reports: Plastic Surgical Reconstruction/Repair , Skin Graft, Other (See Below) Other Dermatological Surgeries/Procedures: Multiple skin grafts of the lower extremities and ankles bilaterally since the 1970s with last left-sided lower leg skin graft on 03/06/19. - Past Imaging History Past Imaging History: Reports: ANALY Screen (Normal on 06/25/12), Angiography ( Aortogram with bilateral lower extremity angiograms on 03/01/18.), Cardiac Echo ( Transesophageal echocardiogram on 01/02/18 with ejection fraction of 6065 percent. Previous echocardiogram on 02/04/14 with ejection fraction of 6570 percent with otherwise findings as above.), Carotid US (02/04/14), CAT Scan (CT of the brain on 02/03/14), DEXA Scan (11/09/10), Mammogram (Last mammogram on 12/19), MRI (Left tibia and fibula on 12/28/17.), Ultrasound (Left breast ultrasound on 09/26/12), Venous Doppler (Positive left leg venous Doppler study on 02/09/16 with results as above and subsequent multiple follow-up evaluations with last evaluation on 05/22/17 with no report available.), Other (See Below) ( Bilateral lower extremity arterial Doppler evaluation on 10/02/17.) Social & Family History - Family History HEENT: Reports: None. Denies: Glaucoma, Macular Degeneration, Retinal Detachment Cardiac: Reports: Bypass, CAD, SD, PVD/COD, Other (See Below). Denies: Afib, AICD, Aneurysm, Arrhythmia, Blood Clots/VTE/DVT, Heart Failure, High Cholesterol , Hypertension Other Cardiac Family History: Fatal SD in father at age 77. Brother with SD and four-vessel CABG in his 70s. Brothers 2 with peripheral vascular disease. 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 Respiratory: Reports: COPD, Other (See Below) Other Respiratory Family Hisory: Brother with COPD GI: Reports: None. Denies: Celiac Disease, Cholelithiasis, Colon Polyps, GI bleed, Inflammatory Bowel Disease, Irritable Bowel Syndrome, PUD : Reports: Diabetic Nephropathy, Renal Disease/Insufficiency, Other (See Below ) Other Family History: Mother with fatal diabetic nephropathy at age 68. OBGYN: Reports: None. Denies: Endometriosis, Recurrent Spontaneous Musculoskeletal: Reports: Arthritis, RA, Other (See Below). Denies: SLE Other Musculoskeletal Family History: Nephew from muscular dystrophy. Brother with rheumatoid arthritis. Neurological: Reports: None. Denies: Cerebral Aneurysms, CVA, Migraines, MS, Parkinson's, Seizure, TIA Psychiatric: Reports: None. Denies: Abuse, Victim of, ADD, ADHD, Anxiety, Depression, Psych Hospitalization(s), PTSD, Suicide Attempt Endocrine/Metabolic: Reports: Diabetes, type II, IDDM, Other (See Below) Other Endocrine/Metabolic Family History: Diabetes mellitus in brother. Mother with IDDM. Hematologic: Reports: None. Denies: Anemia Immunologic: Reports: None. Denies: AIDS, HIV, SLE Dermatologic: Reports: None. Denies: Eczema, Psoriasis Oncologic: Reports: Prostate, Other (See Below). Denies: Breast, Cervix, Colon , Hodgkin's Lymphoma, Leukemia, Lung, Lymphoma, Non-Hodgkin's Lymphoma, Ovarian , Uterine Other Oncologic Family History: Brother with prostate cancer. Maternal grandmother and maternal grandfather from unknown type of cancers. - Tobacco Use Smoking Status *Q: Former Smoker Tobacco Use Within Last Twelve Months: No Years of Tobacco use: 5 Packs/Tins Daily: 1 Packs/Tins Daily Comment: Patient is uncertain when she quit smoking. Used Tobacco, but Quit: Yes Smoking Cessation Information Provided To Patient: No Second Hand Smoke Education Provided: No - Caffeine Use Caffeine Use: Reports: Soda (1 soda per day). Denies: Coffee, Energy Drinks, Tea - Alcohol Use Alcohol Use History: No Days Per Week of Alcohol Use: 0 Number of Drinks Per Day: 0 Number of Drinks Per Day Comment: No previous DWIs, problems with alcohol abuse , etc. 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 ED EXAM, GENERAL - Physical Exam Exam: See Below Exam Limited By: No Limitations General Appearance: Alert, WD/WN, No Apparent Distress, Anxious (Mild) Eye Exam: Bilateral Eye: EOMI, Normal Inspection (She is wearing glasses, no nystagmus) Ears: Normal External Exam, Normal Canal, Hearing Grossly Normal, Normal TMs Nose: Normal Inspection, Normal Mucosa, No Blood Throat/Mouth: Normal Lips, Normal Gums, Normal Oropharynx, Normal Voice, No Airway Compromise. No: Normal Teeth (Complete dentures uppers and lowers), Dysphagia, Perioral Cyanosis Head: Atraumatic, Normocephalic. No: Facial Swelling, Facial Tenderness, Sinus Tenderness Neck: Supple, Non-Tender, Full Range of Motion, Carotid Bruit (Bilateral carotid bruitsmild). No: Lymphadenopathy (L), Lymphadenopathy (R), Thyromegaly Respiratory/Chest: No Respiratory Distress, Lungs Clear, Normal Breath Sounds, No Accessory Muscle Use, Chest Non-Tender. No: Pleural Rub, Retractions Cardiovascular: Normal Peripheral Pulses, Regular Rate, Rhythm, No Edema, No Gallop, No JVD, No Murmur, No Rub. No: Gallop/S3, Gallop/S4, Friction Rub Peripheral Pulses: 1+: Dorsalis Pedis (L), Dorsalis Pedis (R), 2+: Radial (L), Radial (R) GI/Abdominal: Normal Bowel Sounds, Soft, Non-Tender, No Organomegaly, No Distention, No Abnormal Bruit, No Mass. No: Guarding (Female) Exam: Deferred Rectal (Female) Exam: Deferred Back Exam: Full Range of Motion, Other (Moderate scoliosis). No: CVA Tenderness (L), CVA Tenderness (R), Muscle Spasm Extremities: No Pedal Edema, Leg Pain, Limited Range of Motion (Stable by history), Redness (As below), Other (Stable chronic deformity of the left ankle and foot including bilateral pes planus. 10 x 15 cm in diameter irregular area of +1 erythema with moderate purulent drainage over the medial distal aspect of the left tibia with 7 x 6 cm superior and 7 x 1 cm inferior grade 2 ulcers. No lymphangitis. ). No: Joint Swelling, Luciano's Sign, Increased Warmth Neurological: Alert, Oriented, CN II-XII Intact, Normal Cognition, Normal Gait, No Motor/Sensory Deficits Psychiatric: Anxious (Mild), Depressed Mood (Mild with adequate eye contact) Skin Exam: Decubitus (As above), Erythema (As above), Wound/Incision (As above) . No: Diaphoretic, Lymphangitis Lymphatic: No Adenopathy Course - Vital Signs Last Recorded V/S: Last Vital Signs Temp 36.2 C 03/28/19 13:43 Pulse 72 03/28/19 14:30 Resp 18 03/28/19 14:30 BP 117/64 03/28/19 14:30 Pulse Ox 97 03/28/19 14:30 Vital Signs - 24 hr 03/28/19 03/28/19 03/28/19 13:43 14:10 14:30 Temperature [ 36.2 C Temporal] Pulse, 84 68 72 Peripheral [ Right] Respiratory 18 18 18 Rate Blood Pressure 113/46 L 123/46 L 117/64 [Right Arm] O2 Sat by Pulse 97 97 97 Oximetry - Orders/Labs/Meds Orders: Active Orders 24 hr Category Date Time Status CULTURE WOUND + SMEAR [RM] Stat Lab 03/28/19 13:55 Received Obtain Past Medical Record [OM.PC] Routine Oth 03/28/19 13:55 Active Labs: Specimen collected for Gram stain, culture, and sensitivity Meds: Medications Discontinued Medications Generic Name Dose Route Start Last Admin Trade Name Freq PRN Reason Stop Dose Admin Neomycin/Polymyxin/Bacitracin 1 each 03/28/19 14:15 03/28/19 14:21 Triple Antibiotic Oint TOP 03/28/19 14:16 1 each ONETIME ONE Administration - Radiology Interpretation Free Text/Narrative:: None Departure - Departure Time of Disposition: 14:40 Disposition: Home, Self-Care 01 Condition: Fair Clinical Impression: Mixed anxiety depressive disorder, Peptic reflux disease, Hypothyroidism ( acquired), COLD, Chronic obstructive lung disease, HTN, Benign hypertension Coronary artery disease Qualifiers: Coronary Disease-Associated Artery/Lesion type: [place] artery [place] vs. transplanted heart: [place] heart Associated angina: without angina Qualified Code(s): I25.10 - Atherosclerotic heart disease of [place] coronary artery without angina pectoris Osteoarthritis Qualifiers: Osteoarthritis location: multiple joints Osteoarthritis type: primary Qualified Code(s): M15.0 - Primary generalized (osteo)arthritis Cellulitis Qualifiers: Site of cellulitis: extremity Site of cellulitis of extremity: lower extremity Laterality: left Qualified Code(s): L03.116 - Cellulitis of left lower limb Hyperlipidemia Qualifiers: Hyperlipidemia type: unspecified Qualified Code(s): E78.5 - Hyperlipidemia, unspecified - Discharge Information *PRESCRIPTION DRUG MONITORING PROGRAM REVIEWED*: Not Applicable *COPY OF PRESCRIPTION DRUG MONITORING REPORT IN PATIENT ADRIAN: Not Applicable Referrals: Telma Sharpe NP [Primary Care Provider] - Forms: ED Department Discharge Additional Instructions: 1. Followup with your regular provider/linen room supervisor in 6 days as already scheduled. Bring these discharge instructions with you to that visit. 2. Antibacterial soap wash/soak with subsequent antibacterial dressing such as Neosporin, etc. as directed 2 times per day until the wound or laceration site completely heals. Keep the area clean and dry with activity restrictions as discussed. Never use hydrogen peroxide for wound care. You may use the provided wound cleanser prior to the above treatment as discussed. Dressings may be changed more than 2 times a day, if needed. 3. Use Adaptic rather than your previous Acu-Coat dressings and notify your linen room supervisor about 2 intolerance to that dressing. 4. Immediately after this visit verify that your cellular telephone's voicemail has been activated and is empty. Also verify that your home telephone's answering machine is operating properly and has space to receive messages. Note that it is sometimes necessary for us to be able to contact you at a later date to discuss your medical care. 5. Use narcotic pain medications with discretion as discussed 6. Please remember that we are ALWAYS here for you and want to answer any questions you may have. Feel free to call the hospital any time and we call you back NICO. - Problem List & Annotations (1) Cellulitis SNOMED Code(s): 228294500 Code(s): L03.90 - CELLULITIS, UNSPECIFIED Status: Acute Priority: High Annotation/Comment:: Patient is already on minocycline. Specimen collected for Gram stain, culture, and sensitivity with change in antibody therapy depending on these results. Note previous history of MRSA. Continue weekly evaluations through the wound care clinic and her linen room supervisor at [facility] with next appointment in 6 days by her history. She will change to a Adaptic dressing secondary to her intolerance to current Acu-Coat dressing, which results in some moderate burning sensation when applied. Wound care discussed as per discharge instructions. Qualifiers: Site of cellulitis: extremity Site of cellulitis of extremity: lower extremity Laterality: left Qualified Code(s): L03.116 - Cellulitis of left lower limb (2) COLD, Chronic obstructive lung disease SNOMED Code(s): 58153802 Code(s): J44.9 - CHRONIC OBSTRUCTIVE PULMONARY DISEASE, UNSPECIFIED Status : Chronic Priority: Medium Annotation/Comment:: Stable by history with no recent fever or bronchitic type symptoms. Note history of nocturnal hypoxia with no current home O2 therapy by patient history. (3) Coronary artery disease SNOMED Code(s): 18277592 Code(s): I25.10 - ATHSCL HEART DISEASE OF [place] CORONARY ARTERY W/O ANG PCTRS Status: Chronic Priority: Medium Annotation/Comment:: No recent chest pain or anginal type symptoms. Stable by history Qualifiers: Coronary Disease-Associated Artery/Lesion type: [place] artery [place] vs. transplanted heart: [place] heart Associated angina: without angina Qualified Code(s): I25.10 - Atherosclerotic heart disease of [place] coronary artery without angina pectoris (4) HTN, Benign hypertension SNOMED Code(s): 50192819 Code(s): I10 - ESSENTIAL (PRIMARY) HYPERTENSION Status: Chronic Priority : Medium Annotation/Comment:: Blood pressures under good control during ER visit. (5) Hyperlipidemia SNOMED Code(s): 91065750 Code(s): E78.5 - HYPERLIPIDEMIA, UNSPECIFIED Status: Chronic Priority: Medium Annotation/Comment:: Currently under medical therapy. Continue to observe closely by her regular provider. Note the patient has had significant loss during the last few months? Unintentional. She is a poor historian. Qualifiers: Hyperlipidemia type: unspecified Qualified Code(s): E78.5 - Hyperlipidemia , unspecified (6) Hypothyroidism (acquired) SNOMED Code(s): 956538429 Code(s): E03.9 - HYPOTHYROIDISM, UNSPECIFIED Status: Chronic Priority: Medium Annotation/Comment:: Currently under therapy. (7) Mixed anxiety depressive disorder SNOMED Code(s): 553527336 Code(s): F41.8 - OTHER SPECIFIED ANXIETY DISORDERS Status: Chronic Priority: Medium Annotation/Comment:: Stable by history. Continue to observe closely by her regular providers. (8) Osteoarthritis SNOMED Code(s): 690432100 Code(s): M19.90 - UNSPECIFIED OSTEOARTHRITIS, UNSPECIFIED SITE Status: Chronic Priority: Medium Annotation/Comment:: Stable by history. Note history of SLE with current Plaquenil therapy. Qualifiers: Osteoarthritis location: multiple joints Osteoarthritis type: primary Qualified Code(s): M15.0 - Primary generalized (osteo)arthritis (9) Peptic reflux disease SNOMED Code(s): 435791807 Code(s): K21.9 - GASTRO-ESOPHAGEAL REFLUX DISEASE WITHOUT ESOPHAGITIS Status: Chronic Priority: Medium Annotation/Comment:: Stable by history with current medical therapy. Note recent nonspecific anemia with blood transfusions 2 required in December and January 2018 as above. Continue to observe closely by regular providers. No NSAIDs for now. - Problem List Review Problem List Initiated/Reviewed/Updated: Yes - My Orders Last 24 Hours: My Active Orders 03/28/19 13:55 CULTURE WOUND + SMEAR [RM] Stat Obtain Past Medical Record [OM.PC] Routine - Assessment/Plan Last 24 Hours: My Active Orders 03/28/19 13:55 CULTURE WOUND + SMEAR [RM] Stat Obtain Past Medical Record [OM.PC] Routine Assessment:: As above Plan: As above. Extensive precautions were given to the patient, who is in agreement with the treatment plan. See Patient Instructions for further treatment and plan.
[2019-03-28] MEDS ORDERED: Bacitracin/Neomycin/Polymyxin B Oint 0.9 GM U/D Packet TOP ONE (14:15)
[2019-03-28 14:31] VITALS: BP 117/64
== END 2019-03-28 14:40 | disposition home or self-care (01) ==
LOC: LL.ED 13:39
DX: L03.116 Cellulitis of left lower limb (principal); F41.8 Other specified anxiety disorders; K21.9 Gastro-esophageal reflux disease without esophagitis; E03.9 Hypothyroidism, unspecified; J00 Acute nasopharyngitis [common cold]; J44.9 Chronic obstructive pulmonary disease, unspecified; M15.0 Primary generalized (osteo)arthritis; E78.5 Hyperlipidemia, unspecified; I13.0 Hypertensive heart and chronic kidney disease with heart failure and stage 1 through stage 4 chronic kidney disease, or unspecified chronic kidney disease; N18.9 Chronic kidney disease, unspecified; I50.9 Heart failure, unspecified; Z88.1 Allergy status to other antibiotic agents; Z88.0 Allergy status to penicillin; Z88.2 Allergy status to sulfonamides; Z91.048 Other nonmedicinal substance allergy status; Z79.82 Long term (current) use of aspirin; Z79.01 Long term (current) use of anticoagulants; Z79.899 Other long term (current) drug therapy; Z86.718 Personal history of other venous thrombosis and embolism; Z86.73 Personal history of transient ischemic attack (TIA), and cerebral infarction without residual deficits; Z87.891 Personal history of nicotine dependence
CPT/HCPCS: 87070; 87077; 87186; 87205; 99283

== ENCOUNTER 2020-07-14 08:12 | Inpatient (IN) | payer MEDICARE, BC, MEDICAID ==
[2020-07-14] MEDS ORDERED: Famotidine 20 MG/2 ML SDV IVPUSH ONE (08:39)
--- NOTE | 2020-07-14 08:39 | EDM.PDOC ---
ED HPI GENERAL MEDICAL PROBLEM - General Chief Complaint: General Stated Complaint: weakness Time Seen by Provider: 07/14/20 08:35 Source of Information: Reports: Patient, Family (Daughter, Priti), Old Records ([facility] chart/EMR), Other ([facility] EMR reviewed on 03/28/2019) History Limitations: Reports: No Limitations - History of Present Illness INITIAL COMMENTS - FREE TEXT/NARRATIVE: Patient was brought to the emergency room via transport vehicle from [facility] for evaluation of a 2-day history of nonspecific progressive weakness and mild progressive dyspnea with O2 sat of only 60% at the shelter on room air prior to transfer. O2 was applied at 2 L/min by nasal cannula in the shelter, however the patient was not transferred with oxygen supplementation. At about 1:30 AM this morning the patient had some nonspecific dizziness associated with bilateral ocular flashing, however no headaches, visual changes, or neurological deficits. The patient denies any chest pain/pressure, heart flutter, orthostasis, orthopnea, diaphoresis, paresthesias, recent decreased exercise tolerance, or any other anginal-type symptoms. No recent history of abdominal pain, heartburn, diarrhea, melena, gross hematochezia, or any food intolerance, including fatty foods, etc. with normal bowel movement yesterday. The patient did have one episode of emesis 2 days ago, however denies any current nausea, previous hematemesis, etc. She denies any gross hematuria, colic, or other UTI symptoms. The patient also denies any recent fever, cough, wheezing, etc., however note increasing dyspnea since this evening. She denies any known exposure to infection, food poisoning, etc., including COVID-19 with apparent negative screen at the shelter 2 days ago. The patient did receive her influenza booster this season. She denies any current pain or discomfort. Onset: Gradual Onset Date: 07/12/20 Duration: Getting Worse Location: Reports: Other (No pain) Quality: Reports: Same as Previous Episode Severity: Moderate (Hypoxia) Improves with: Reports: Other (Oxygen) Worsens with: Reports: None Associated Symptoms: Reports: Nausea/Vomiting (As above), Rash (Stable chronic venous stasis ulcers), Shortness of Breath, Weakness (Progressive as above with patient normally using a walker). Denies: Confusion, Chest Pain, Cough, Diaphoresis, Fever/Chills, Headaches, Loss of Appetite, Malaise, Syncope Treatments ANIMAL RIDE MANAGER: Reports: Oxygen - Related Data Allergies Allergy/AdvReac Type Severity Reaction Status Date / Time cefazolin Allergy Hives Verified 07/14/20 08:18 cephalexin [Cephalexin] Allergy Hives Verified 07/14/20 08:18 clindamycin Allergy Rash Verified 07/14/20 08:18 lincomycin HCl Allergy Rash Verified 07/14/20 08:18 [From Lincocin] Penicillins Allergy Hives Verified 07/14/20 08:18 sulfamethoxazole Allergy Hives Verified 07/14/20 08:18 [From Bactrim] trimethoprim [From Bactrim] Allergy Hives Verified 07/14/20 08:18 vancomycin Allergy Rash Verified 07/14/20 08:18 adhesive tape Allergy Rash Uncoded 07/14/20 08:18 Home Meds: Home Meds Acetaminophen [Tylenol] 2 tab PO BID PRN 07/14/20 [History] Aspirin [Aspirin EC] 1 tab PO DAILY 07/14/20 [History] Biotin 1 tab PO DAILY 07/14/20 [History] Carboxymethylcellulose Sodium [Artificial Tears] 1 drop OP Q8HR PRN 07/14/20 [History] Clopidogrel Bisulfate [Plavix] 1 tab PO DAILY 07/14/20 [History] Fluticasone Propionate [Flonase] 1 spray NASBOTH DAILY 07/14/20 [History] Furosemide [Lasix] 20 mg PO DAILY 07/14/20 [History] Gabapentin [Neurontin] 600 mg PO TID 07/14/20 [History] Gel Base No.41 [Hydrogel] 1 applic TOP Q48H 07/14/20 [History] Hydrocodone/Acetaminophen [[place] 5-325 Tablet] 1 tab PO BID 07/14/20 [History] Hydrocodone/Acetaminophen [[place] 5-325 Tablet] 1 tab PO DAILY PRN 07/14/20 [History] Hydrocortisone [Hydrocortisone 1% Oint] 1 applic TOP BID PRN 07/14/20 [History] Hydroxychloroquine Sulfate 1 tab PO DAILY 07/14/20 [History] Levothyroxine Sodium [Levothyroxine] 1 tab PO DAILY 07/14/20 [History] Lidocaine 4% [LMX 4] 1 applic TOP TID 07/14/20 [History] Loperamide [Imodium AD] 2 tab PO DAILY PRN 07/14/20 [History] Loratadine [Claritin] 1 tab PO DAILY 07/14/20 [History] Mag Hydrox/Aluminum Hyd/Simeth [Mylanta Maximum Strength Liq] 30 ml PO DAILY PRN 07/14/20 [History] Melatonin 2 tab PO BEDTIME 07/14/20 [History] Metoprolol Succinate [Toprol XL 50mg] 1 tab PO DAILY 07/14/20 [History] Mineral Oil/Petrolatum [Aquaphor Healing Oint] 1 applic TOP DAILY 07/14/20 [History] Multivitamin 1 tab PO DAILY 07/14/20 [History] Ondansetron [Zofran] 1 tab PO Q8HR PRN 07/14/20 [History] Pantoprazole Sodium [Protonix] 1 tab PO DAILY 07/14/20 [History] Pentoxifylline 1 tab PO TID 07/14/20 [History] Saccharomyces Boulardii [Florastor] 1 tab PO BEDTIME 07/14/20 [History] Sertraline [Zoloft] 1 tab PO DAILY 07/14/20 [History] Silver [Acticoat 7] 1 pad TOP Q48H 07/14/20 [History] Triamcinolone Acetonide [Triamcinolone Acetonide 0.1% Crm] 1 applic TOP Q12HR PRN 07/14/20 [History] Vit A/Vit C/Vit E/Zinc/Copper [Preservision] 1 cap PO DAILY 07/14/20 [History] atorvaSTATin Calcium [Atorvastatin Calcium] 1 tab PO BEDTIME 07/14/20 [History] guaiFENesin [Mucinex] 1 tab PO Q12HR PRN 07/14/20 [History] hydrOXYzine HCL [Hydroxyzine HCl] 0.5 tab PO BEDTIME 07/14/20 [History] hydrOXYzine HCL [Hydroxyzine HCl] 12.5 mg PO Q8HR PRN 07/14/20 [History] Past Medical History HEENT History: Reports: Allergic Rhinitis, Impaired Vision, Macular Degeneration, Other (See Below). Denies: Cataract, Glaucoma, Hard of Hearing, Retinal Detachment, Sinusitis Other HEENT History: Patient wears glasses. Cardiovascular History: Reports: Arrhythmia, Blood Clots/VTE/DVT, CAD, Cardiomyopathy, Heart Failure, Heart Murmur, High Cholesterol, Hypertension, SD, PVD, Other (See Below). Denies: Afib, Aneurysm, Bypass, Stents Other Cardiovascular History: SD in 1990. DVT of the left distal femoral vein on 02/09/16. Peripheral vascular disease with secondary refractory bilateral lower extremities ulcers as below. Varicose veins. Borderline incomplete right bundle branch block. Mild mitral and tricuspid valve insufficiency by echocardiogram with additional grade 1 diastolic dysfunction. Respiratory History: Reports: Bronchitis, Recurrent, COPD, Intubation, Previous, Pneumonia, Recurrent, Pulmonary Fibrosis, Other (See Below). Denies: Intubation, Difficult, PE, Pneumothorax, Sleep Apnea, TB Other Respiratory History: Nocturnal hypoxia with no current oxygen supplementation. Chronic left hemidiaphragm elevation. Gastrointestinal History: Reports: Cholelithiasis, Diverticulosis, Fecal Incontinence, GERD, Helicobacter Pylori, Other (See Below). Denies: Bowel Obstruction, Celiac Disease, Chronic Constipation, Chronic Diarrhea, Colon Polyp, GI Bleed, Hepatitis, Hiatal Hernia, Inflammatory Bowel Disease, Irritable Bowel Syndrome, Jaundice, PUD Other Gastrointestinal History: History of colitis of unknown etiology. Genitourinary History: Reports: Chronic Renal Insuffiency, Retention, Urinary. Denies: Acute Renal Failure, Renal Calculus, STD, Urinary Incontinence, UTI, Recurrent DATA ACQUISITION TECHNICIAN History: Reports: : 4 Para: 4 LMP (Approximate): Other (See Below) Other DATA ACQUISITION TECHNICIAN History: Menopause in her 50s. Full term without complications during pregnancies or deliveries, however note of last infant at one day of age as below. Musculoskeletal History: Reports: Arthritis, Back Pain, Chronic, Fracture, Neck Pain, Chronic, Osteoarthritis, Osteoporosis, SLE, Other (See Below). Denies: Amputation, Gout, RA Other Musculoskeletal History: Multiple thoracic vertebral body compression fracture secondary to her osteoporosis. Moderate scoliosis. SLE with recurrent bilateral leg ulcers. Neurological History: Reports: CVA, Headaches, Chronic, TIA, Other (See Below). Denies: Cerebral Aneurysms, Concussion, Head Trauma, Migraines, MS, Neuropathy, Diabetic, Neuropathy, Peripheral, Seizure, Vertigo Other Neuro History: Borderline CVA versus TIA on 02/03/[address] scan of the head with requested MRIs of the head and neck not conducted at [facility] at that time per their EMR records as below. Cerebral cj rovascular disease by CT scan. Psychiatric History: Reports: Addiction, Anxiety, Dementia, Psych Hospitalization(s), Other (See Below). Denies: Abuse, Victim of, ADD, ADHD, P TSD, Suicide Attempt, Suicidal Ideation Other Psychiatric History: Chronic insomnia. Previous chronic use of tramadol and currently narcotics secondary to chronic pain syndrome. Endocrine/Metabolic History: Reports: Hypothyroidism, Obesity/BMI 30+, Osteopenia, Osteoporosis, Vitamin D Deficiency, Other (See Below). Denies: Diabetes, Gestational, Diabetes, Type I, Diabetes, Type II, Diabetes Mellitus, Type 3c, IDDM Other Endocrine/Metabolic History: Hyperglycemia. Hyperaldosteronism with hyperphosphatemia. Hypoalbuminemia. Hypokalemia. Hematologic History: Reports: Anemia, Blood Transfusion(s), Other (See Below) Other Hematologic History: Anemia of unknown etiology however possibly secondary to her chronic renal insufficiency, with no apparent previous workup; previous blood transfusions on 01/08/18 and 02/14/18. Immunologic History: Reports: Immunosuppression, SLE, Other (See Below). Denies: AIDS, HIV Other Immunologic History: Current Plaquenil therapy Oncologic (Cancer) History: Reports: None. Denies: Basal Cell Carcinoma, Breast, Cervix, Colon, Hodgkin's Lymphoma, Leukemia, Lymphoma, Malignant Melanoma, Non-Hodgkin's Lymphoma, Ovarian, Squamous Cell Carcinoma, Uterine Dermatologic History: Reports: Cellulitis, Chronic Cellulitis, Venous Stasis Dermatitis, Other (See Below). Denies: Eczema, Psoriasis Other Dermatologic History: Chronic bilateral leg ulcers secondary to SLE and peripheral vascular disease as above with recurrent cellulitis, including previous MRSA. - Infectious Disease History Infectious Disease History: Reports: MRSA (From her legs bilaterally from chronic ulcers), Other (See Below). Denies: Novel Coronavirus, Shingles Other Infectious Disease History: Patient uncertain about other childhood diseases, etc. - Past Surgical History Head Surgeries/Procedures: Reports: None HEENT Surgical History: Reports: Oral Surgery, Other (See Below). Denies: Adenoidectomy, Cataract Surgery, Eye Surgery, Laser Surgery, LASIK, Myringotomy w Tube(s), Naso-Sinus Surgery, Tonsillectomy Other HEENT Surgeries/Procedures: Complete teeth extraction with current complete dentures. Cardiovascular Surgical History: Reports: None. Denies: Varicose Respiratory Surgical History: Reports: None. Denies: Thoracentesis GI Surgical History: Reports: Appendectomy, Cholecystectomy, Colonoscopy, EGD, Other (See Below). Denies: Hernia, Abdominal, Hernia, Inguinal, Hernia Repair/Other, Polypectomy Other GI Surgeries/Procedures: Appendectomy in the 1940s. Laparoscopic c holecystectomy. EGD on 06/01/11. Colonoscopy in the . Female Surgical History: Reports: None. Denies: D&C, Hysterectomy, Salpingo- Oophorectomy, Tubal Ligation Endocrine Surgical History: Reports: None. Denies: Thyroid Biopsy Neurological Surgical History: Reports: None. Denies: C-Spine, Discectomy, Laminectomy, Lumbar Spine, Sacral Spine, Spinal Fusion, Thoracic Spine, Vertebroplasty Musculoskeletal Surgical History: Reports: Arthroscopic Procedure, Joint Replacement, Knee Replacement, Other (See Below). Denies: Carpal Tunnel, Ganglion Cyst Other Musculoskeletal Surgeries/Procedures:: Right shoulder arthroscopic surgery including flushing procedure on 12/27/17 secondary to septic joint. Bilateral hip TEP. Bilateral Total knee arthroplasty on 03/21/04 and 07/18/04. Oncologic Surgical History: Reports: None Dermatological Surgical History: Reports: Plastic Surgical Reconstruction/Repair, Skin Graft, Other (See Below) Other Dermatological Surgeries/Procedures: Multiple skin grafts of the lower extremities and ankles bilaterally since the 1970s with last left-sided lower leg skin graft on 03/06/19. - Past Imaging History Past Imaging History: Reports: ANALY Screen (Normal on 06/25/12), Angiography (Aortogram with bilateral lower extremity angiograms on 03/01/18.), Cardiac Echo (Transesophageal echocardiogram on 01/02/18 with ejection fraction of 6065 percent. Previous echocardiogram on 02/04/14 with ejection fraction of 6570 percent with otherwise findings as above.), Carotid US (02/04/14), CAT Scan (CT of the brain on 02/03/14), DEXA Scan (11/09/10), Mammogram (Last mammogram on 12/19/16), MRI (Left tibia and fibula on 12/28/17.), Ultrasound (Left breast ultrasound on 09/26/12), Venous Doppler (Positive left leg venous Doppler study on 02/09/16 with results as above and subsequent multiple follow-up evaluations with last evaluation on 05/22/17 with no report available.), Other (See Below) (Bilateral lower extremity arterial Doppler evaluation on 10/02/17.) Social & Family History - Family History HEENT: Reports: None. Denies: Glaucoma, Macular Degeneration, Retinal D etachment Cardiac: Reports: Bypass, CAD, SD, PVD/COD, Other (See Below). Denies: Afib, AICD, Aneurysm, Arrhythmia, Blood Clots/VTE/DVT, Heart Failure, High Cholesterol, Hypertension Other Cardiac Family History: Fatal SD in father at age 77. Brother with SD and four-vessel CABG in his 70s. Brothers 2 with peripheral vascular disease. Full term infant from multiple complications at one day of age, including probable congenital heart defect, etc. Respiratory: Reports: COPD, Other (See Below) Other Respiratory Family Hisory: Brother with COPD GI: Reports: None. Denies: Celiac Disease, Cholelithiasis, Colon Polyps, GI bleed, Inflammatory Bowel Disease, Irritable Bowel Syndrome, PUD : Reports: Diabetic Nephropathy, Renal Disease/Insufficiency, Other (See Below) Other Family History: Mother with fatal diabetic nephropathy at age 68. OBGYN: Reports: None. Denies: Endometriosis, Recurrent Spontaneous Musculoskeletal: Reports: Arthritis, RA, Other (See Below). Denies: SLE Other Musculoskeletal Family History: Nephew from muscular dystrophy. Brother with rheumatoid arthritis. Neurological: Reports: None. Denies: Cerebral Aneurysms, CVA, Migraines, MS, Parkinson's, Seizure, TIA Psychiatric: Reports: None. Denies: Abuse, Victim of, ADD, ADHD, Anxiety, Depression, Psych Hospitalization(s), PTSD, Suicide Attempt Endocrine/Metabolic: Reports: Diabetes, type II, IDDM, Other (See Below). Denies: Diabetes, Type I, Diabetes Mellitus, Type 3c, Hypothyroidism Other Endocrine/Metabolic Family History: Diabetes mellitus in brother. Mother with IDDM. Hematologic: Reports: None. Denies: Anemia Immunologic: Reports: None. Denies: AIDS, HIV, SLE Dermatologic: Reports: None. Denies: Eczema, Psoriasis Oncologic: Reports: Prostate, Other (See Below). Denies: Breast, Cervix, Colon, Hodgkin's Lymphoma, Leukemia, Lung, Lymphoma, Non-Hodgkin's Lymphoma, Ovarian, Uterine Other Oncologic Family History: Brother with prostate cancer. Maternal grandmother and maternal grandfather from unknown type of cancers. - Tobacco Use Tobacco Use Status *Q: Former Tobacco User Tobacco Use Within Last Twelve Months: No Years of Tobacco use: 5 Packs/Tins Daily: 1 Packs/Tins Daily Comment: Patient is uncertain when she quit smoking. Used Tobacco, but Quit: Yes Smoking Cessation Information Provided To Patient: No Second Hand Smoke Exposure: No Second Hand Smoke Education Provided: No - Caffeine Use Caffeine Use: Reports: Soda (1 soda every other day). Denies: Coffee, Energy Drinks, Tea - Alcohol Use Alcohol Use History: No Days Per Week of Alcohol Use: 0 Number of Drinks Per Day: 0 Number of Drinks Per Day Comment: No previous DWIs, problems with alcohol abuse, etc. 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 ED EXAM, GENERAL - Physical Exam Exam: See Below Exam Limited By: No Limitations General Appearance: Alert, WD/WN, No Apparent Distress Eye Exam: Bilateral Eye: EOMI, Normal Inspection (The patient is wearing glasses. No vertigo or nystagmus.), PERRL Ears: Normal External Exam, Normal Canal, Hearing Grossly Normal, Normal TMs Nose: Normal Mucosa, No Blood, Nasal Drainage, Clear Rhinorrhea Throat/Mouth: Normal Inspection, Normal Lips, Normal Gums, Normal Oropharynx, Normal Voice, No Airway Compromise. No: Normal Teeth (Complete dentures uppers and lowers), Dysphagia, Perioral Cyanosis Head: Atraumatic, Normocephalic. No: Facial Swelling, Facial Tenderness, Sinus Tenderness Neck: Supple, Non-Tender, Full Range of Motion, Carotid Bruit (Mild bilateral carotid bruits versus transmitted heart sounds). No: Lymphadenopathy (L), Lymphadenopathy (R), Thyromegaly Respiratory/Chest: No Respiratory Distress, No Accessory Muscle Use, Chest Non- Tender, Decreased Breath Sounds (Bases bilaterally right greater than left), Rales (Mild diffuse). No: Rhonchi, Wheezing, Pleural Rub, Retractions Cardiovascular: Normal Peripheral Pulses, Regular Rate, Rhythm, No Gallop, No JVD, No Rub, Systolic Murmur (Mild 1/6 WILLY of the aortic and mitral valves). No: No Edema (Dependent edema as below), Gallop/S3, Gallop/S4, Extra Beats, Friction Rub Peripheral Pulses: 2+: Radial (L), Radial (R), Dorsalis Pedis (L), Dorsalis Pedis (R) GI/Abdominal: Normal Bowel Sounds, Soft, Non-Tender, No Organomegaly, No Diste ntion, No Abnormal Bruit, No Mass, Pelvis Stable, Other (Obese). No: Guarding (Female) Exam: Deferred Rectal (Female) Exam: Deferred Back Exam: Other (Moderate scoliosis). No: CVA Tenderness (L), CVA Tenderness (R), Muscle Spasm, Paraspinal Tenderness, Vertebral Tenderness Extremities: Normal Range of Motion, Non-Tender, Normal Capillary Refill, Pedal Edema (Trace to +1 bilateral pedal/pretibial edema), Other (4 cm in diameter grade 2 venous stasis ulcer over the left medial malleolus with additional 3.5 cm in diameter similar lesion over the medial distal right tibial region improving slowly by patient history. No drainage or significant local signs of infection. Dressing in right anterior proximal femoral region for previous area mild ulceration from ingrown hair.). No: Luciano's Sign Neurological: Alert, Oriented, CN II-XII Intact, Normal Cognition, Normal Gait, Normal Reflexes (Negative Babinski's), No Motor/Sensory Deficits Psychiatric: Normal Affect, Normal Mood Skin Exam: Wound/Incision (As above), Other (Venous stasis dermatitis of the lower extremities bilaterally) Lymphatic: No Adenopathy #1 Interpretation EKG Date: 07/14/20 Time: 08:47 Rhythm: NSR Rate (Beats/Min): 85 [place]: Normal (Neutral) P-Wave: Enlarged (Moderate diffuse biphasic P waves) QRS: Wide (0.10 seconds representing repolarization changes) ST-T: Other (T wave inversion in leads V1 through V3) QT: Normal IA/PQ Interval: 0.17 seconds with extreme poor R wave progression in the anterior leads Comparison: NA - No Prior EKG (No recent EKG for comparison) EKG Interpretation Comments: 1. Possible anterior wall cardiac ischemia 2. Left atrial enlargement Course - Vital Signs Last Recorded V/S: Last Vital Signs Temp Pulse 84 07/14/20 08:15 Resp 18 07/14/20 10:15 BP 112/51 L 07/14/20 10:15 Pulse Ox 100 07/14/20 10:15 Vital Signs - 24 hr 07/14/20 07/14/20 07/14/20 08:12 08:15 08:30 Pulse, 91 84 Peripheral [ Pulse Oximetry] Respiratory 17 17 19 Rate Blood Pressure 92/44 L 114/49 L 114/59 L [Right Upper Arm] O2 Sat by Pulse 76 L 92 L 100 Oximetry 07/14/20 07/14/20 07/14/20 08:45 09:00 09:15 Pulse, Peripheral [ Pulse Oximetry] Respiratory 19 18 19 Rate Blood Pressure 118/51 L 115/46 L 105/43 L [Right Upper Arm] O2 Sat by Pulse 99 100 100 Oximetry 07/14/20 07/14/20 07/14/20 09:30 09:45 10:00 Pulse, Peripheral [ Pulse Oximetry] Respiratory 19 17 19 Rate Blood Pressure 110/46 L 112/49 L 115/44 L [Right Upper Arm] O2 Sat by Pulse 100 100 100 Oximetry 07/14/20 10:15 Pulse, Peripheral [ Pulse Oximetry] Respiratory 18 Rate Blood Pressure 112/51 L [Right Upper Arm] O2 Sat by Pulse 100 Oximetry - Orders/Labs/Meds Orders: Active Orders 24 hr Category Date Time Status Cardiac Monitoring [RC] . DIRECTED Care 07/14/20 08:39 Active EKG Documentation Completion [RC] ASDIRECTED Care 07/14/20 08:39 Active Oxygen Therapy, ED [RC] PRN Care 07/14/20 08:39 Active Peripheral IV Care [RC] . DIRECTED Care 07/14/20 08:39 Active Pulse Oximetry [RC] CONTINUOUS Care 07/14/20 08:39 Active Up With Assistance [RC] PFP Care 07/14/20 08:39 Active Vital Signs [RC] PFP Care 07/14/20 08:39 Active Nothing per Oral Now Diet [DIET] Diet 07/14/20 Breakfast Active Abdomen Series w Chest 1V [CR] Routine Exams 07/14/20 08:43 Taken CULTURE BLOOD [BC] Stat Lab 07/14/20 08:30 Received CULTURE BLOOD [BC] Stat Lab 07/14/20 08:35 Received Sodium Chloride 0.9% [Saline Flush] Med 07/14/20 08:19 Active 10 ml FLUSH ASDIRECTED PRN Sodium Chloride 0.9% [Saline Flush] Med 07/14/20 08:39 Active 10 ml FLUSH ASDIRECTED PRN Blood Culture x2 Reflex Set [OM.PC] Stat Oth 07/14/20 08:19 Ordered Isolation [COMM] Routine Oth 07/14/20 08:19 Active Obtain Past Medical Record [OM.PC] Urgent Oth 07/14/20 08:39 Active Peripheral IV Insertion Adult [OM.PC] Stat Oth 07/14/20 08:39 Ordered Saline Lock Insert [OM.PC] Routine Oth 07/14/20 08:19 Ordered Resuscitation Status Stat Resus Stat 07/14/20 08:39 Ordered Medication Orders Sodium Chloride (Saline Flush) 10 ml FLUSH ASDIRECTED PRN PRN Reason: Keep Vein Open Last Admin: 07/14/20 10:08 Dose: 10 ml Documented by: RYAN Sodium Chloride (Saline Flush) 10 ml FLUSH ASDIRECTED PRN PRN Reason: Keep Vein Open Labs: Laboratory Tests 07/14/20 07/14/20 07/14/20 Range/Units 08:19 08:30 08:30 WBC 10.5 H (4.0-10.2) K/uL RBC 3.99 (3.77-5.09) M/uL Hgb 10.5 L D (11.7-15.5) g/dL Hct 35.6 (34.0-46.0) % MCV 89.2 (84.0-98.0) fL MCH 26.3 L (28.2-33.3) pg MCHC 29.5 L (31.7-36.0) g/dL RDW 16.0 H (11.2-14.1) % Plt Count 179 (150-350) K/uL Neut % (Auto) 74.4 (45.0-80.0) % Lymph % (Auto) 13.9 (10.0-50.0) % [place] % (Auto) 10.1 (2.0-14.0) % Eos % (Auto) 1.4 (0.0-5.0) % Baso % (Auto) 0.2 (0.0-2.0) % Neut # (Auto) 7.79 H (1.40-7.00) K/uL Lymph # (Auto) 1.46 (0.50-3.50) K/uL [place] # (Auto) 1.06 H (0.00-1.00) K/uL Eos # (Auto) 0.15 (0.00-0.50) K/uL Baso # (Auto) 0.02 (0.00-0.20) K/uL PT (9.5-12.0) SEC INR APTT (24.5-32.8) SEC D-Dimer, Quantitative 1390 H (0-400) ng/mL Sodium (136-145) mmol/L Potassium (3.5-5.1) mmol/L Chloride (98-107) mmol/L Carbon Dioxide (21.0-32.0) mmol/L BUN (7-18) mg/dL Creatinine (0.51-1.17) mg/dL Est Cr Clr Drug Dosing Estimated GFR (MDRD) mL/min Glucose (74-106) mg/dL Lactic Acid (0.4-2.0) mmol/L Uric Acid (2.6-7.2) mg/dL Calcium (8.5-10.1) mg/dL Magnesium (1.8-2.4) mg/dL Total Bilirubin (0.2-1.0) mg/dL AST (15-37) U/L ALT (12-78) U/L Alkaline Phosphatase (46-116) IU/L Creatine Kinase (26-308) U/L Creatine Kinase Index (0.0-2.5) % CK-MB (CK-2) (0.00-3.60) ng/mL Troponin I (0.000-0.056) ng/mL NT-Pro-B Natriuret Pep (0-125) pg/mL Total Protein (6.4-8.2) g/dL Albumin (3.4-5.0) g/dL Amylase (25-115) U/L Lipase (73-393) U/L TSH, Ultra Sensitive (0.358-3.740) mIU/mL SARS-CoV-2 RNA (KIMBERLY) Negative (NEGATIVE) 07/14/20 07/14/20 07/14/20 Range/Units 08:30 08:30 08:35 WBC (4.0-10.2) K/uL RBC (3.77-5.09) M/uL Hgb (11.7-15.5) g/dL Hct (34.0-46.0) % MCV (84.0-98.0) fL MCH (28.2-33.3) pg MCHC (31.7-36.0) g/dL RDW (11.2-14.1) % Plt Count (150-350) K/uL Neut % (Auto) (45.0-80.0) % Lymph % (Auto) (10.0-50.0) % [place] % (Auto) (2.0-14.0) % Eos % (Auto) (0.0-5.0) % Baso % (Auto) (0.0-2.0) % Neut # (Auto) (1.40-7.00) K/uL Lymph # (Auto) (0.50-3.50) K/uL [place] # (Auto) (0.00-1.00) K/uL Eos # (Auto) (0.00-0.50) K/uL Baso # (Auto) (0.00-0.20) K/uL PT 10.3 (9.5-12.0) SEC INR 1.0 APTT 26.7 (24.5-32.8) SEC D-Dimer, Quantitative (0-400) ng/mL Sodium 136 (136-145) mmol/L Potassium 4.0 (3.5-5.1) mmol/L Chloride 101 (98-107) mmol/L Carbon Dioxide 30.5 (21.0-32.0) mmol/L BUN 19 H (7-18) mg/dL Creatinine 1.12 (0.51-1.17) mg/dL Est Cr Clr Drug Dosing TNP Estimated GFR (MDRD) 47 mL/min Glucose 110 H (74-106) mg/dL Lactic Acid 0.8 (0.4-2.0) mmol/L Uric Acid 7.3 H (2.6-7.2) mg/dL Calcium 8.4 L (8.5-10.1) mg/dL Magnesium 2.0 (1.8-2.4) mg/dL Total Bilirubin 0.4 (0.2-1.0) mg/dL AST 25 (15-37) U/L ALT 23 (12-78) U/L Alkaline Phosphatase 123 H (46-116) IU/L Creatine Kinase 57 (26-308) U/L Creatine Kinase Index 0.7 (0.0-2.5) % CK-MB (CK-2) 0.40 (0.00-3.60) ng/mL Troponin I 0.002 (0.000-0.056) ng/mL NT-Pro-B Natriuret Pep 3879 H (0-125) pg/mL Total Protein 6.5 (6.4-8.2) g/dL Albumin 2.9 L (3.4-5.0) g/dL Amylase 48 (25-115) U/L Lipase 86 (73-393) U/L TSH, Ultra Sensitive 1.295 (0.358-3.740) mIU/mL SARS-CoV-2 RNA ([facility]) (NEGATIVE) Blood cultures x2 were collected Microbiology 07/14/20 08:18 Influenza Type A Antigen Screen - Final Nasal, Right NEGATIVE INFLUENZA A VIRUS AG REFERENCE RANGE: NEGATIVE Influenza Type B Antigen Screen - Final NEGATIVE INFLUENZA B VIRUS AG REFERENCE RANGE: NEGATIVE Meds: Medications Generic Name Dose Route Start Last Admin Trade Name Freq PRN Reason Stop Dose Admin Sodium Chloride 10 ml 07/14/20 08:19 07/14/20 10:08 Saline Flush FLUSH 10 ml ASDIRECTED PRN Administration Keep Vein Open Sodium Chloride 10 ml 07/14/20 08:39 Saline Flush FLUSH ASDIRECTED PRN Keep Vein Open Discontinued Medications Generic Name Dose Route Start Last Admin Trade Name Freq PRN Reason Stop Dose Admin Famotidine 40 mg 07/14/20 08:39 07/14/20 08:48 Pepcid IVPUSH 07/14/20 08:40 40 mg ONETIME ONE Administration Furosemide 60 mg 07/14/20 09:31 07/14/20 10:08 Lasix IVPUSH 07/14/20 09:32 60 mg NOW ONE Administration - Radiology Interpretation Free Text/Narrative:: solution maker shows normal sinus rhythm with exception of very occasional PACs with no other significant ectopy, arrhythmia, etc. with average heart rate in the 80s. Acute abdominal x-rays shows a somewhat poor inspiratory film, however moderate bilateral pleural effusions ,right greater than left, with additional mild to moderate cardiomegaly and CHF. Moderate osteoarthritic changes and scoliosis were also noted. Mild diffuse nonspecific gaseous pattern and stool with no fluid levels, ileus, obstruction, or free air. No significant intra-abdominal calcifications noted. Note status post bilateral hip TEP. Departure - Departure Time of Disposition: 10:25 Disposition: Admitted As Inpatient 64 Condition: Good Clinical Impression: Mixed anxiety depressive disorder, Hypothyroidism (acquired), Peptic reflux disease, HTN, Benign hypertension, Elevated d-dimer, Hyperuricemia, Hypocalcemia, Renal insufficiency, Need for comfort care CHF (congestive heart failure) Qualifiers: Heart failure type: unspecified Heart failure chronicity: acute on chronic Qualified Code(s): I50.9 - Heart failure, unspecified Coronary artery disease Qualifiers: Coronary Disease-Associated Artery/Lesion type: [place] artery [place] vs. transplanted heart: [place] heart Associated angina: without angina Qualified Code(s): I25.10 - Atherosclerotic heart disease of [place] coronary artery without angina pectoris Osteoarthritis Qualifiers: Osteoarthritis location: multiple joints Osteoarthritis type: primary Qualified Code(s): M89.49 - Other hypertrophic osteoarthropathy, multiple sites Venous stasis ulcers Qualifiers: Venous stasis ulcer site: ankle Varicose vein presence: with varicose veins Laterality: left Non-pressure ulcer stage: limited to breakdown of skin Q ualified Code(s): I83.023 - Varicose veins of left lower extremity with ulcer of ankle Anemia Qualifiers: Anemia type: due to chronic kidney disease Chronic kidney disease stage: stage 3 (moderate) Chronic kidney disease stage 3 subtype: stage 3a (GFR 45-59) Qualified Code(s): N18.31 - Chronic kidney disease, stage 3a - Discharge Information *PRESCRIPTION DRUG MONITORING PROGRAM REVIEWED*: Not Applicable *COPY OF PRESCRIPTION DRUG MONITORING REPORT IN PATIENT ADRIAN: Not Applicable Sepsis Event Note (ED) - Focused Exam Vital Signs: Vital Signs Pulse Resp BP Pulse Ox 07/14/20 10:15 18 112/51 L 100 07/14/20 10:00 19 115/44 L 100 07/14/20 09:45 17 112/49 L 100 07/14/20 09:30 19 110/46 L 100 07/14/20 09:15 19 105/43 L 100 07/14/20 09:00 18 115/46 L 100 07/14/20 08:45 19 118/51 L 99 07/14/20 08:30 19 114/59 L 100 07/14/20 08:15 84 17 114/49 L 92 L 07/14/20 08:12 91 17 92/44 L 76 L - Problem List & Annotations (1) CHF (congestive heart failure) SNOMED Code(s): 48160886 Code(s): I50.9 - HEART FAILURE, UNSPECIFIED Status: Acute Priority: High Current Visit: Yes Onset Date: 12/26/17 Annotation/Comment:: Moderate exacerbation of her CHF with moderate bilateral pleural effusions as above. IV Lasix therapy initiated in the emergency room. Initiate standard rule out SD orders as below. Note current comfort care with no further echocardiogram, etc.. Qualifiers: Heart failure type: unspecified Heart failure chronicity: acute on chronic Qualified Code(s): I50.9 - Heart failure, unspecified (2) Coronary artery disease SNOMED Code(s): 71279730 Code(s): I25.10 - ATHSCL HEART DISEASE OF [place] CORONARY ARTERY W/O ANG PCTRS Status: Chronic Priority: Medium Current Visit: Yes Annotation/Comment:: Note anterior wall cardiac ischemia by resting EKG with exacerbation of her previous CHF as above. Initiate standard rule out SD orders. Note comfort care. Cardiology consultation depending on her clinical course. No recent chest pain or anginal type symptoms and previously stable by history. Qualifiers: Coronary Disease-Associated Artery/Lesion type: [place] artery [place] vs. transplanted heart: [place] heart Associated angina: without angina Qualified Code(s): I25.10 - Atherosclerotic heart disease of [place] coronary artery without angina pectoris (3) Elevated d-dimer SNOMED Code(s): 559874676 Code(s): R79.89 - OTHER SPECIFIED ABNORMAL FINDINGS OF BLOOD CHEMISTRY Status: Acute Priority: High Current Visit: Yes Onset Date: 07/14/20 An notation/Comment:: Initiate subcu Lovenox prophylactic therapy. No clinical evidence of PE or DVT. CT scan and venous Doppler studies not available until tomorrow secondary to winter storm, etc. (4) HTN, Benign hypertension SNOMED Code(s): 40867900 Code(s): I10 - ESSENTIAL (PRIMARY) HYPERTENSION Status: Chronic Priority: Medium Current Visit: Yes Annotation/Comment:: Blood pressures under good control during ER visit with mild nonsymptomatic hypotension. (5) Peptic reflux disease SNOMED Code(s): 195856835 Code(s): K21.9 - GASTRO-ESOPHAGEAL REFLUX DISEASE WITHOUT ESOPHAGITIS Status: Chronic Priority: Medium Current Visit: Yes Annotation/Comment:: Stable by history with current medical therapy. No evidence of acute GI bleed. IV Pepcid given as GI prophylaxis. Note previous nonspecific anemia with blood transfusions 2 required in December and January 2018 as above. Continue to observe closely by regular providers. (6) Mixed anxiety depressive disorder SNOMED Code(s): 386986415 Code(s): F41.8 - OTHER SPECIFIED ANXIETY DISORDERS Status: Chronic Priority: Medium Current Visit: Yes Annotation/Comment:: Stable by history. Continue to observe closely by her regular providers. Note chronic narcotic use. (7) Hypothyroidism (acquired) SNOMED Code(s): 736449035 Code(s): E03.9 - HYPOTHYROIDISM, UNSPECIFIED Status: Chronic Priority: Medium Current Visit: Yes Annotation/Comment:: Currently under therapy normal TSH on 07/14/2020. (8) Hypoalbuminemia SNOMED Code(s): 073064876 Code(s): E88.09 - OTH DISORDERS OF PLASMA-PROTEIN METABOLISM, NEC Status: Acute Priority: Medium Current Visit: Yes Onset Date: 12/25/17 Annotation/Comment:: Consider high protein Glucerna supplements as snacks with history of chronic hypoalbuminemia. (9) Anemia SNOMED Code(s): 374047280 Code(s): D64.9 - ANEMIA, UNSPECIFIED Status: Chronic Priority: Medium Current Visit: Yes Annotation/Comment:: Stable anemia per medical records. Note renal insufficiency as above. Vitamin B12 level, folic acid level, TIBC panel and ferritin level with next set of blood work. Qualifiers: Anemia type: due to chronic kidney disease Chronic kidney disease stage: stage 3 (moderate) Chronic kidney disease stage 3 subtype: stage 3a (GFR 45- 59) Qualified Code(s): N18.31 - Chronic kidney disease, stage 3a; D63.1 - Anemia in chronic kidney disease (10) Hyperuricemia SNOMED Code(s): 45661932 Code(s): E79.0 - HYPERURICEMIA W/O SIGNS OF INFLAM ARTHRIT AND TOPHACEOUS DIS Status: Acute Priority: Medium Current Visit: Yes Onset Date: 07/14/20 Annotation/Comment:: Newly diagnosed. No gout type symptoms. Continue to observe closely secondary to her IV Lasix therapy. Her arthritis is otherwise stable. 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 Observe for now. (12) Need for comfort care SNOMED Code(s): 254192963, 466560798 Code(s): POG9653 - Status: Chronic Priority: Medium Current Visit: Yes Annotation/Comment:: Confirmed with the patient and her daughter today. - Problem List Review Problem List Initiated/Reviewed/Updated: Yes - My Orders Last 24 Hours: My Active Orders 07/14/20 Breakfast Nothing per Oral Now Diet [DIET] 07/14/20 08:19 Sodium Chloride 0.9% [Saline Flush] 10 ml FLUSH ASDIRECTED PRN Blood Culture x2 Reflex Set [OM.PC] Stat Isolation [COMM] Routine Saline Lock Insert [OM.PC] Routine 07/14/20 08:30 CULTURE BLOOD [BC] Stat 07/14/20 08:35 CULTURE BLOOD [BC] Stat 07/14/20 08:39 Cardiac Monitoring [RC] . DIRECTED EKG Documentation Completion [RC] ASDIRECTED Oxygen Therapy, ED [RC] PRN Peripheral IV Care [RC] . DIRECTED Pulse Oximetry [RC] CONTINUOUS Up With Assistance [RC] PFP Vital Signs [RC] PFP Sodium Chloride 0.9% [Saline Flush] 10 ml FLUSH ASDIRECTED PRN Obtain Past Medical Record [OM.PC] Urgent Peripheral IV Insertion Adult [OM.PC] Stat Resuscitation Status Stat 07/14/20 08:43 Abdomen Series w Chest 1V [CR] Routine - Assessment/Plan Admission H&P: Please use this note as an admission H&P Last 24 Hours: My Active Orders 07/14/20 Breakfast Nothing per Oral Now Diet [DIET] 07/14/20 08:19 Sodium Chloride 0.9% [Saline Flush] 10 ml FLUSH ASDIRECTED PRN Blood Culture x2 Reflex Set [OM.PC] Stat Isolation [COMM] Routine Saline Lock Insert [OM.PC] Routine 07/14/20 08:30 CULTURE BLOOD [BC] Stat 07/14/20 08:35 CULTURE BLOOD [BC] Stat 07/14/20 08:39 Cardiac Monitoring [RC] . DIRECTED EKG Documentation Completion [RC] ASDIRECTED Oxygen Therapy, ED [RC] PRN Peripheral IV Care [RC] . DIRECTED Pulse Oximetry [RC] CONTINUOUS Up With Assistance [RC] PFP Vital Signs [RC] PFP Sodium Chloride 0.9% [Saline Flush] 10 ml FLUSH ASDIRECTED PRN Obtain Past Medical Record [OM.PC] Urgent Peripheral IV Insertion Adult [OM.PC] Stat Resuscitation Status Stat 07/14/20 08:43 Abdomen Series w Chest 1V [CR] Routine Assessment:: As above Plan: As above. Extensive precautions were given to the patient and her daughter, who are in agreement with the treatment plan. The patient will require about 3-4 days of inpatient/acute care secondary to multiple health problems as above.
[2020-07-14 09:06] LABS: PTT,PARTIAL THROMBOPLSTIN TIME 26.7 SEC (24.5-32.8)
[2020-07-14 09:16] LABS: CHLORIDE,CL 101 mmol/L (98-107); SODIUM,NA 136 mmol/L (136-145)
[2020-07-14] MEDS ORDERED: Furosemide 40 MG/4 ML VIAL IVPUSH ONE (09:31)
[2020-07-14] MEDS: Sodium Chloride 0.9% 10 ML Syringe FLUSH PRN ×3 (10:08→19:57)
[2020-07-14] MEDS ORDERED: SILVER TOP SCH (11:46)
[2020-07-14] MEDS ORDERED: [UNRECOGNIZED DRUG - OTHER] TOP SCH (11:46)
[2020-07-14] MEDS ORDERED: hydrOXYzine HCl 25 MG Tab PO PRN (11:46)
[2020-07-14] MEDS ORDERED: LIDOCAINE 4% TOP SCH (12:00)
[2020-07-14] MEDS: Acetaminophen 325 MG Tab PO PRN (12:23)
[2020-07-14] MEDS ORDERED: Ondansetron 4 MG Tab.DIS PO PRN (12:33)
[2020-07-14] MEDS ORDERED: Polyvinyl Alcohol 1.4% Ophth Soln 15 ML Bottle EYEBOTH PRN (12:35)
[2020-07-14] MEDS: Pentoxifylline 400 MG Tab.ER PO SCH ×2 (14:03→18:51)
[2020-07-14] MEDS: Potassium Chloride 20 MEQ Tab.ER PO SCH ×2 (14:03→18:51)
[2020-07-14] MEDS: Pantoprazole 40 MG Vial IVPUSH SCH (14:04)
[2020-07-14] MEDS: Enoxaparin 80 MG/0.8 ML Syringe SUBCUT SCH (14:09)
[2020-07-14] MEDS: Gabapentin 300 MG Cap PO SCH (18:50)
[2020-07-14] MEDS: Furosemide 40 MG/4 ML VIAL IVPUSH SCH (18:51)
[2020-07-14] MEDS: Melatonin 3 MG Tab PO SCH (21:10)
[2020-07-14] MEDS: hydrOXYzine HCl 25 MG Tab PO SCH (21:11)
[2020-07-14] MEDS: Lactobacillus Rhamnosus GG (Probiotic) Cap PO SCH (21:11)
[2020-07-14] MEDS: atorvaSTATin 40 MG Tab PO SCH (21:11)
[2020-07-15] MEDS: Sodium Chloride 0.9% 10 ML Syringe FLUSH PRN ×4 (00:51→19:21)
[2020-07-15] MEDS: Pantoprazole 40 MG Vial IVPUSH SCH ×3 (00:51→19:18)
[2020-07-15] MEDS: Furosemide 40 MG/4 ML VIAL IVPUSH SCH ×2 (00:59→17:31)
[2020-07-15] MEDS: Acetaminophen 325 MG Tab PO PRN ×3 (01:07→19:17)
[2020-07-15 07:22] LABS: HEMOGLOBIN A1C 5.6 % (4.3-5.7)
[2020-07-15] MEDS ORDERED: Non-Formulary Medication 1 Each (Mineral Oil/Petrolatum 1 APPLIC) TOP SCH (08:00)
--- NOTE | 2020-07-15 09:30 | PCM.PN ---
- General Info Date of Service: 07/15/20 Admission Dx/Problem (Free Text): 1. CHF 2. D-dimer elevation 3. Coronary artery disease Functional Status: Reports: Pain Controlled, Tolerating Diet, Ambulating, Urinating, Incentive Spirometry. Denies: New Symptoms Pain Score: 0 - Review of Systems General: Reports: Weakness (Improving slowly). Denies: Fever, Fatigue, Malaise, Chills, Night Sweats, Appetite (Good) HEENT: Reports: Glasses. Denies: Dysphasia, Ear Pain, Eye Pain, Headaches, Post Nasal Drip, Sinus Congestion, Sore Throat, Rhinitis, Visual Changes Pulmonary: Reports: Shortness of Breath. Denies: Pleuritic Chest Pain, Cough, Sputum, Hemoptysis, Wheezing Cardiovascular: Reports: Dyspnea on Exertion, Edema (Stable chronic). Denies: Chest Pain, Palpitations, PND, Lightheadedness Gastrointestinal: Reports: No Symptoms, Other (Large bowel movement yesterday was normal). Denies: Abdominal Pain, Constipation, Decreased Appetite, Diarrhea, Difficulty Swallowing, Flatus, Hematochezia, Melena, Nausea, Vomiting Genitourinary: Reports: Incontinence. Denies: Dysuria, Frequency, Burning, Kayy n, Urgency, Hematuria, Retention, Flank Pain Musculoskeletal: Reports: No Symptoms. Denies: Neck Pain, Shoulder Pain, Arm Pain, Back Pain, Leg Pain Skin: Reports: Bruising (Mild forearms from IV sites), Other (Multiple venous stasis ulcers stable). Denies: Diaphoresis Neurological: Reports: Weakness (As above) Psychiatric: Reports: No Symptoms. Denies: Confusion, Depression, Anxiety, Agitation, Cravings, Hallucinations - Patient Data Vitals - Most Recent: Last Vital Signs Temp 36.3 C 07/15/20 04:00 Pulse 74 07/15/20 04:00 Resp 13 07/15/20 04:00 BP 121/62 07/15/20 04:00 Pulse Ox 94 L 07/15/20 04:00 Vital Signs - 24 hr 07/14/20 07/14/20 07/14/20 09:30 09:45 10:00 Temperature [ Temporal] Pulse, Peripheral [ Pulse Oximetry] Respiratory 19 17 19 Rate Blood Pressure [Left Upper Arm ] Blood Pressure 110/46 L 112/49 L 115/44 L [Right Upper Arm] O2 Sat by Pulse 100 100 100 Oximetry 07/14/20 07/14/20 07/14/20 10:15 10:37 13:15 Temperature [ 36.4 C 36.4 C Temporal] Pulse, 78 73 Peripheral [ Pulse Oximetry] Respiratory 18 16 14 Rate Blood Pressure 124/56 L [Left Upper Arm ] Blood Pressure 112/51 L 105/48 L [Right Upper Arm] O2 Sat by Pulse 100 98 98 Oximetry 07/14/20 07/14/20 07/14/20 16:00 20:00 20:05 Temperature [ 36.6 C 36.4 C Temporal] Pulse, 83 74 Peripheral [ Pulse Oximetry] Respiratory 16 14 Rate Blood Pressure 123/62 [Left Upper Arm ] Blood Pressure 106/48 L [Right Upper Arm] O2 Sat by Pulse 92 L 82 L 95 Oximetry 07/15/20 07/15/20 00:00 04:00 Temperature [ 36.6 C 36.3 C Temporal] Pulse, 80 74 Peripheral [ Pulse Oximetry] Respiratory 13 Rate Blood Pressure 123/61 121/62 [Left Upper Arm ] Blood Pressure [Right Upper Arm] O2 Sat by Pulse 98 94 L Oximetry Weight - Most Recent: 86.183 kg I&O - Last 24 Hours: Intake & Output 07/14/20 07/15/20 07/15/20 22:59 06:59 14:59 Intake Total 120 Output Total 1100 1250 Balance -980 -1250 Imaging Impressions - Last 24 Hours: quality assurance monitor chassis shows normal sinus rhythm in the 70s to 80s with no ectopy or arrhythmia Preliminary verbal report from feroz Angel. Venous Doppler studies of the lower extremities are negative for acute DVT, however difficult exam. Lab Results Last 24 Hours: Laboratory Results - last 24 hr 07/14/20 07/14/20 07/14/20 Range/Units 08:19 14:54 20:23 WBC (4.0-10.2) K/uL RBC (3.77-5.09) M/uL Hgb (11.7-15.5) g/dL Hct (34.0-46.0) % MCV (84.0-98.0) fL MCH (28.2-33.3) pg MCHC (31.7-36.0) g/dL RDW (11.2-14.1) % Plt Count (150-350) K/uL Neut % (Auto) (45.0-80.0) % Lymph % (Auto) (10.0-50.0) % [place] % (Auto) (2.0-14.0) % Eos % (Auto) (0.0-5.0) % Baso % (Auto) (0.0-2.0) % Neut # (Auto) (1.40-7.00) K/uL Lymph # (Auto) (0.50-3.50) K/uL [place] # (Auto) (0.00-1.00) K/uL Eos # (Auto) (0.00-0.50) K/uL Baso # (Auto) (0.00-0.20) K/uL D-Dimer, Quantitative (0-400) ng/mL Sodium (136-145) mmol/L Potassium (3.5-5.1) mmol/L Chloride (98-107) mmol/L Carbon Dioxide (21.0-32.0) mmol/L BUN (7-18) mg/dL Creatinine (0.51-1.17) mg/dL Est Cr Clr Drug Dosing mL/min Estimated GFR (MDRD) mL/min Glucose (74-106) mg/dL Hemoglobin A1c (4.3-5.7) % Calcium (8.5-10.1) mg/dL Total Bilirubin (0.2-1.0) mg/dL AST (15-37) U/L ALT (12-78) U/L Alkaline Phosphatase (46-116) IU/L Creatine Kinase 129 207 (26-308) U/L Creatine Kinase Index 0.7 1.1 (0.0-2.5) % CK-MB (CK-2) 0.90 2.20 (0.00-3.60) ng/mL Troponin I 0.002 0.005 (0.000-0.056) ng/mL NT-Pro-B Natriuret Pep (0-125) pg/mL Total Protein (6.4-8.2) g/dL Albumin (3.4-5.0) g/dL Triglycerides (30-150) mg/dL Cholesterol (100-200) mg/dL LDL Cholesterol, Calc (0-100) mg/dL HDL Cholesterol (40-60) mg/dL SARS-CoV-2 RNA (KIMBERLY) Negative (NEGATIVE) 07/15/20 07/15/20 07/15/20 Range/Units 07:11 07:11 07:11 WBC 7.6 (4.0-10.2) K/uL RBC 4.21 (3.77-5.09) M/uL Hgb 11.0 L (11.7-15.5) g/dL Hct 37.3 (34.0-46.0) % MCV 88.6 (84.0-98.0) fL MCH 26.1 L (28.2-33.3) pg MCHC 29.5 L (31.7-36.0) g/dL RDW 15.7 H (11.2-14.1) % Plt Count 178 (150-350) K/uL Neut % (Auto) 59.7 (45.0-80.0) % Lymph % (Auto) 22.1 (10.0-50.0) % [place] % (Auto) 13.6 (2.0-14.0) % Eos % (Auto) 4.3 (0.0-5.0) % Baso % (Auto) 0.3 (0.0-2.0) % Neut # (Auto) 4.54 (1.40-7.00) K/uL Lymph # (Auto) 1.68 (0.50-3.50) K/uL [place] # (Auto) 1.03 H (0.00-1.00) K/uL Eos # (Auto) 0.33 (0.00-0.50) K/uL Baso # (Auto) 0.02 (0.00-0.20) K/uL D-Dimer, Quantitative 1050 H (0-400) ng/mL Sodium 140 (136-145) mmol/L Potassium 3.7 (3.5-5.1) mmol/L Chloride 101 (98-107) mmol/L Carbon Dioxide 34.8 H (21.0-32.0) mmol/L BUN 20 H (7-18) mg/dL Creatinine 1.35 H (0.51-1.17) mg/dL Est Cr Clr Drug Dosing 28.22 mL/min Estimated GFR (MDRD) 38 mL/min Glucose 87 (74-106) mg/dL Hemoglobin A1c (4.3-5.7) % Calcium 8.5 (8.5-10.1) mg/dL Total Bilirubin 0.4 (0.2-1.0) mg/dL AST 27 (15-37) U/L ALT 22 (12-78) U/L Alkaline Phosphatase 110 (46-116) IU/L Creatine Kinase 497 H (26-308) U/L Creatine Kinase Index 0.8 (0.0-2.5) % CK-MB (CK-2) 4.20 H (0.00-3.60) ng/mL Troponin I 0.011 (0.000-0.056) ng/mL NT-Pro-B Natriuret Pep 2822 H (0-125) pg/mL Total Protein 6.4 (6.4-8.2) g/dL Albumin 2.8 L (3.4-5.0) g/dL Triglycerides 79 (30-150) mg/dL Cholesterol 102 (100-200) mg/dL LDL Cholesterol, Calc 44 (0-100) mg/dL HDL Cholesterol 42 (40-60) mg/dL SARS-CoV-2 RNA (KIMBERLY) (NEGATIVE) 07/15/20 Range/Units 07:11 WBC (4.0-10.2) K/uL RBC (3.77-5.09) M/uL Hgb (11.7-15.5) g/dL Hct (34.0-46.0) % MCV (84.0-98.0) fL MCH (28.2-33.3) pg MCHC (31.7-36.0) g/dL RDW (11.2-14.1) % Plt Count (150-350) K/uL Neut % (Auto) (45.0-80.0) % Lymph % (Auto) (10.0-50.0) % [place] % (Auto) (2.0-14.0) % Eos % (Auto) (0.0-5.0) % Baso % (Auto) (0.0-2.0) % Neut # (Auto) (1.40-7.00) K/uL Lymph # (Auto) (0.50-3.50) K/uL [place] # (Auto) (0.00-1.00) K/uL Eos # (Auto) (0.00-0.50) K/uL Baso # (Auto) (0.00-0.20) K/uL D-Dimer, Quantitative (0-400) ng/mL Sodium (136-145) mmol/L Potassium (3.5-5.1) mmol/L Chloride (98-107) mmol/L Carbon Dioxide (21.0-32.0) mmol/L BUN (7-18) mg/dL Creatinine (0.51-1.17) mg/dL Est Cr Clr Drug Dosing mL/min Estimated GFR (MDRD) mL/min Glucose (74-106) mg/dL Hemoglobin A1c 5.6 (4.3-5.7) % Calcium (8.5-10.1) mg/dL Total Bilirubin (0.2-1.0) mg/dL AST (15-37) U/L ALT (12-78) U/L Alkaline Phosphatase (46-116) IU/L Creatine Kinase (26-308) U/L Creatine Kinase Index (0.0-2.5) % CK-MB (CK-2) (0.00-3.60) ng/mL Troponin I (0.000-0.056) ng/mL NT-Pro-B Natriuret Pep (0-125) pg/mL Total Protein (6.4-8.2) g/dL Albumin (3.4-5.0) g/dL Triglycerides (30-150) mg/dL Cholesterol (100-200) mg/dL LDL Cholesterol, Calc (0-100) mg/dL HDL Cholesterol (40-60) mg/dL SARS-CoV-2 RNA (KIMBERLY) (NEGATIVE) Eugenio Results Last 24 Hours: Microbiology 07/14/20 08:35 Aerobic Blood Culture - Preliminary Blood - Venous - Lab Draw NO GROWTH AFTER 1 DAY Anaerobic Blood Culture - Preliminary NO GROWTH AFTER 1 DAY 07/14/20 08:30 Aerobic Blood Culture - Preliminary Blood - Venous NO GROWTH AFTER 1 DAY Anaerobic Blood Culture - Preliminary NO GROWTH AFTER 1 DAY 07/14/20 08:18 Influenza Type A Antigen Screen - Final Nasal, Right NEGATIVE INFLUENZA A VIRUS AG REFERENCE RANGE: NEGATIVE Influenza Type B Antigen Screen - Final NEGATIVE INFLUENZA B VIRUS AG REFERENCE RANGE: NEGATIVE Med Orders - Current: Current Medications Acetaminophen (Tylenol) 650 mg PO Q4H PRN PRN Reason: Pain Last Admin: 07/15/20 09:05 Dose: 650 mg Documented by: Artificial Tears (Liquitears 1.4% Ophth Soln) 0 ml EYEBOTH Q8HR PRN PRN Reason: Dry Eyes Aspirin (Halfprin) 81 mg PO DAILY [facility] Atorvastatin Calcium (Lipitor) 40 mg PO BEDTIME [facility] Last Admin: 07/14/20 21:11 Dose: 40 mg Documented by: Enoxaparin Sodium (Lovenox) 80 mg SUBCUT Q24H [facility] Last Admin: 07/14/20 14:09 Dose: 80 mg Documented by: Famotidine (Pepcid) 20 mg IVPUSH DAILY [facility] Fluticasone Propionate (Flonase) 0 gm NASBOTH DAILY [facility] Furosemide (Lasix) 40 mg IVPUSH Q8H [facility] Last Admin: 07/15/20 00:59 Dose: 40 mg Documented by: Gabapentin (Neurontin) 600 mg PO TID [facility] Last Admin: 07/14/20 18:50 Dose: 600 mg Documented by: Hydroxychloroquine Sulfate (Plaquenil) 200 mg PO DAILY [facility] Hydroxyzine HCl (Atarax) 12.5 mg PO BEDTIME [facility] Last Admin: 07/14/20 21:11 Dose: 12.5 mg Documented by: Hydroxyzine HCl (Atarax) 12.5 mg PO Q8HR PRN PRN Reason: Itching Lactobacillus Rhamnosus (Culturelle) 1 cap PO BEDTIME [facility] Last Admin: 07/14/20 21:11 Dose: 1 cap Documented by: Levothyroxine Sodium (Synthroid) 50 mcg PO DAILY [facility] Loratadine (Claritin) 10 mg PO DAILY [facility] Melatonin (Melatonin) 6 mg PO BEDTIME [facility] Last Admin: 07/14/20 21:10 Dose: 6 mg Documented by: Metoprolol Succinate (Toprol Xl) 50 mg PO DAILY [facility] Multivitamins/Minerals/Vitamin C (Tab-A-Gerardo) 1 tab PO DAILY [facility] Non-Formulary Medication (Lidocaine 4% [Lmx 4]) 1 applic TOP TID [facility] Ondansetron HCl (Zofran Odt) 4 mg PO Q8HR PRN PRN Reason: Nausea Last Admin: 07/14/20 18:50 Dose: 4 mg Documented by: Pantoprazole Sodium (Protonix Iv) 40 mg IVPUSH Q12H [facility] Last Admin: 07/15/20 00:51 Dose: 40 mg Documented by: Pentoxifylline (Trental) 400 mg PO TID [facility] Last Admin: 07/14/20 18:51 Dose: 400 mg Documented by: Potassium Chloride (Klor-Con M20) 20 meq PO TID [facility] Last Admin: 07/14/20 18:51 Dose: 20 meq Documented by: Sertraline HCl (Zoloft) 25 mg PO DAILY [facility] Sodium Chloride (Saline Flush) 10 ml FLUSH ASDIRECTED PRN PRN Reason: Keep Vein Open Last Admin: 07/14/20 18:51 Dose: 10 ml Documented by: Sodium Chloride (Saline Flush) 10 ml FLUSH ASDIRECTED PRN PRN Reason: Keep Vein Open Last Admin: 07/15/20 00:51 Dose: 10 ml Documented by: Sodium Chloride (Saline Flush) 10 ml FLUSH Q12HR PRN PRN Reason: Keep Vein Open Last Admin: 07/14/20 19:57 Dose: 10 ml Documented by: Vit C/Vit E/Zinc/Copper/Lutein (Ocuvite Lutein) 1 each PO DAILY [facility] Discontinued Medications Famotidine (Pepcid) 40 mg IVPUSH ONETIME ONE Stop: 07/14/20 08:40 Last Admin: 07/14/20 08:48 Dose: 40 mg Documented by: Furosemide (Lasix) 60 mg IVPUSH NOW ONE Stop: 07/14/20 09:32 Last Admin: 07/14/20 10:08 Dose: 60 mg Documented by: - Exam Quality Assessment: Supplemental Oxygen (2 L/min by nasal cannula), DVT Prophylaxis (Lovenox), Skin Breakdown (Stable venous stasis ulcers). No: Central Line/PICC, Urine Catheter, Restraints General: Alert, Oriented, Cooperative, No Acute Distress HEENT: Pupils Equal, Pupils Reactive, EOMI, Mucous Membr. Moist/[place], Other (Patient is wearing glasses. Complete dentures uppers and lowers). No: Scleral Icterus Neck: Supple, Trachea Midline, No JVD, No Thyromegaly, Carotid Bruit (Stable mild bilateral carotid bruits versus transmitted heart sounds). No: Lymphadenopathy Lungs: Normal Respiratory Effort, Decreased Breath Sounds (Moderate in the bases bilaterally with only some improvement from admission), Rales (Mild occasional bilaterally improved from admission). No: Rhonchi, Rub, Wheezing Cardiovascular: Regular Rate, Regular Rhythm, Murmurs (Stable mild 1/6 WILLY of the aortic and mitral valves). No: Gallops, Rubs GI/Abdominal Exam: Normal Bowel Sounds, Soft, Non-Tender, No Organomegaly, No Distention, No Abnormal Bruit, No Mass, Other (Obese). No: Guarding (Female) Exam: Deferred Back Exam: Full Range of Motion, Other (Stable kyphoscoliosis). No: CVA Tenderness (L), CVA Tenderness (R), Muscle Spasm, Paraspinal Tenderness, Vertebral Tenderness Extremities: Normal Range of Motion, Non-Tender, Normal Capillary Refill, Pedal Edema (Stable trace bilateral pedal/pretibial edema), Other (Dressing in place for bilateral lower leg venous stasis grade 2 ulcers with additional area of cellulitis moderate drainage over the right medial proximal femoral region). No: Luciano's Sign Peripheral Pulses: 1+: Dorsalis Pedis (L), Dorsalis Pedis (R), 2+: Radial (L), Radial (R) Skin: Ecchymosis (Forearms bilaterally), Other (Venous stasis ulcers as above) Wound/Incisions: Drainage (Right proximal femoral lesion only) Neurological: No New Focal Deficit, Other (Negative Babinski's) Psy/Mental Status: Alert, Normal Affect, Normal Mood. No: Agitated, Hallucinations, Withdrawal Symptoms #1 Interpretation EKG Date: 07/15/20 Time: 09:53 Rhythm: NSR Rate (Beats/Min): [address] [place]: Normal (Neutral cardiac axis) P-Wave: Enlarged (Mild diffuse biphasic P waves with poor R wave progression in the anterior leads) ST-T: Other (Increased prominence of T wave inversions in leads V1 with progression into lead V4 consistent with probable anterior wall ischemia) QT: Normal IL/PQ Interval: 0.17 seconds with extreme poor R wave progression in the anterior leads Comparison: Change From Previous EKG (As above since 07/14/2020) EKG Interpretation Comments: 1. Progressive anterior wall cardiac ischemia 2. Left atrial enlargement Sepsis Event Note - Evaluation Sepsis Screening Result: No Definite Risk - Focused Exam Vital Signs: Vital Signs Temp Pulse Resp BP Pulse Ox 07/15/20 04:00 36.3 C 74 13 121/62 94 L 07/15/20 00:00 36.6 C 80 123/61 98 - Problem List & Annotations (1) CHF (congestive heart failure) SNOMED Code(s): 80980292 Code(s): I50.9 - HEART FAILURE, UNSPECIFIED Status: Acute Priority: High Current Visit: Yes Onset Date: 12/26/17 Qualifiers: Heart failure type: unspecified Heart failure chronicity: acute on chronic Qualified Code(s): I50.9 - Heart failure, unspecified Annotation/Comment:: Persistent hypoxemia at rest on room air with O2 sat of only 75% earlier this morning. Otherwise O2 sats are stable at 2 L/min by nasal cannula. Excellent urine output with aggressive IV Lasix therapy, which will be decreased somewhat secondary to patient's mildly progressive renal insufficiency. Chest x-ray to be repeated on 07/16. Moderate exacerbation of her CHF with moderate bilateral pleural effusions at time of admission as per emergency room note. IV Lasix therapy initiated in the emergency room. Standard CA orders have been negative to this point however note moderate CK elevation with normal cardiac index. In addition, note increasing troponin I, which is still normal, despite decrease of her BNP. The patient's EKG does show progressive anterior wall cardiac changes today, however. Various therapeutic options were discussed with the patient and by telephone with her daughter, Priti, this morning with both parties electing to try medical management initially with no further transfer to [place] for heart catheterization, etc. at this time. Note current comfort care with no further echocardiogram, etc.. No chest pain or anginal type symptoms. Cardiology consultation depending on her clinical course. Note normal glycosylated hemoglobin of 5.6% and normal fasting lipid profile on 07/16/2020. Initiate low-dose Imdur therapy for now with caution secondary to her occasionally low blood pressures. (2) Coronary artery disease SNOMED Code(s): 59605940 Code(s): I25.10 - ATHSCL HEART DISEASE OF [place] CORONARY ARTERY W/O ANG PCTRS Status: Chronic Priority: Medium Current Visit: Yes Qualifiers: Coronary Disease-Associated Artery/Lesion type: [place] artery [place] vs. transplanted heart: [place] heart Associated angina: without angina Qualified Code(s): I25.10 - Atherosclerotic heart disease of [place] coronary artery without angina pectoris Annotation/Comment:: As above. Note progressive anterior wall cardiac ischemia by resting EKG with persistent hypoxia at rest and exacerbation of her previous CHF as above. Note comfort care. Cardiology consultation depending on her clinical course. No recent chest pain or anginal type symptoms and previously stable by history. (3) Elevated d-dimer SNOMED Code(s): 334780660 Code(s): R79.89 - OTHER SPECIFIED ABNORMAL FINDINGS OF BLOOD CHEMISTRY Status: Acute Priority: High Current Visit: Yes Onset Date: 07/14/20 Annotation/Comment:: Initiated subcu Lovenox prophylactic therapy on admission. No clinical evidence of PE or DVT. CT scan is still not available at this time secondary to equipment failure. Venous Doppler studies were conducted earlier this morning with results as above. Not this evaluation was not available on admission secondary to winter storm, etc. (4) HTN, Benign hypertension SNOMED Code(s): 50581799 Code(s): I10 - ESSENTIAL (PRIMARY) HYPERTENSION Status: Chronic Priority: Medium Current Visit: Yes Annotation/Comment:: Blood pressures under good control during ER visit with mild nonsymptomatic hypotension at that time. Otherwise blood pressures have been stable during this hospitalization. (5) Peptic reflux disease SNOMED Code(s): 003416064 Code(s): K21.9 - GASTRO-ESOPHAGEAL REFLUX DISEASE WITHOUT ESOPHAGITIS Status: Chronic Priority: Medium Current Visit: Yes Annotation/Comment:: Stable by history with current medical therapy. No evidence of acute GI bleed. IV Pepcid given as GI prophylaxis. Note previous nonspecific anemia with blood transfusions 2 required in December and January 2018 as above. Continue to observe closely by regular providers. Mild persistent anemia however improved h emoglobin of 11.0 on 07/15 despite subcu Lovenox therapy as above. Note negative Hemoccult. (6) Mixed anxiety depressive disorder SNOMED Code(s): 253813111 Code(s): F41.8 - OTHER SPECIFIED ANXIETY DISORDERS Status: Chronic Priority: Medium Current Visit: Yes Annotation/Comment:: Stable by history. Continue to observe closely by her regular providers. Note chronic narcotic use. (7) Hypothyroidism (acquired) SNOMED Code(s): 829794589 Code(s): E03.9 - HYPOTHYROIDISM, UNSPECIFIED Status: Chronic Priority: Medium Current Visit: Yes Annotation/Comment:: Currently under therapy normal TSH on 07/14/2020. (8) Hypoalbuminemia SNOMED Code(s): 282009692 Code(s): E88.09 - OTH DISORDERS OF PLASMA-PROTEIN METABOLISM, NEC Status: Acute Priority: Medium Current Visit: Yes Onset Date: 12/25/17 Annotation/Comment:: Consider high protein Glucerna supplements as snacks with history of chronic hypoalbuminemia. (9) Anemia SNOMED Code(s): 698223774 Code(s): D64.9 - ANEMIA, UNSPECIFIED Status: Chronic Priority: Medium Current Visit: Yes Qualifiers: Anemia type: due to chronic kidney disease Chronic kidney disease stage: stage 3 (moderate) Chronic kidney disease stage 3 subtype: stage 3a (GFR 45- 59) Qualified Code(s): N18.31 - Chronic kidney disease, stage 3a; D63.1 - Anemia in chronic kidney disease Annotation/Comment:: Improved hemoglobin on 07/15 as above. Stable anemia per medical records. Note renal insufficiency as above. Vitamin B12 level, folic acid level, TIBC panel and ferritin level with next set of blood work. (10) Hyperuricemia SNOMED Code(s): 04635322 Code(s): E79.0 - HYPERURICEMIA W/O SIGNS OF INFLAM ARTHRIT AND TOPHACEOUS DIS Status: Acute Priority: Medium Current Visit: Yes Onset Date: 07/14/20 Annotation/Comment:: Newly diagnosed. No gout type symptoms. Continue to observe closely secondary to her IV Lasix therapy. Her arthritis is otherwise stable. 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 Observe for now. (12) Need for comfort care SNOMED Code(s): 544391627, 523188742 Code(s): HQF1649 - Status: Chronic Priority: Medium Current Visit: Yes Annotation/Comment:: Confirmed with the patient and her daughter today. (13) Renal insufficiency SNOMED Code(s): 875227912, 568608227 Code(s): N28.9 - DISORDER OF KIDNEY AND URETER, UNSPECIFIED Status: Chronic Priority: Medium Current Visit: Yes Annotation/Comment:: As above - Problem List Review Problem List Initiated/Reviewed/Updated: Yes - My Orders Last 24 Hours: My Active Orders 07/14/20 08:30 CULTURE BLOOD [BC] Stat 07/14/20 08:35 CULTURE BLOOD [BC] Stat 07/14/20 08:39 Cardiac Monitoring [RC] Q2HR EKG Documentation Completion [RC] ASDIRECTED Peripheral IV Care [RC] . DIRECTED Sodium Chloride 0.9% [Saline Flush] 10 ml FLUSH ASDIRECTED PRN Peripheral IV Insertion Adult [OM.PC] Stat Resuscitation Status Stat 07/14/20 08:43 Abdomen Series w Chest 1V [CR] Routine 07/14/20 11:46 hydrOXYzine HCL [Atarax] 12.5 mg PO Q8HR PRN 07/14/20 11:55 Communication Order [RC] 08,20 Height and Weight [RC] DAILY Intake and Output Strict [RC] ASDIRECTED Oxygen Therapy [RC] 2300 Pulse Oximetry [RC] .PRN Up With Assistance [RC] ASDIRECTED OCCULT BLOOD DIAGNOSTIC [OP] Stat Sodium Chloride 0.9% [Saline Flush] 10 ml FLUSH Q12HR PRN Antiembolic Hose [OM.PC] Routine CHF Questionnaire [COMM] Routine DVT/VTE Prophylaxis Reflex [OM.PC] Routine GM Immunization Reflex [OM.PC] Click to Edit 07/14/20 11:56 Communication, Vaccine [RC] .PRN VTE/DVT Education [RC] 08,20 Vaccines to be Administered [RC] .PRN 07/14/20 12:00 Communication Order [RC] 1999 H PYLORI STOOL ANTIGEN [MREF] ONETIME Acetaminophen [TylenoL] 650 mg PO Q4H PRN Lidocaine 4% [LMX 4] 1 applic TOP TID Pantoprazole [ProTONIX IV] 40 mg IVPUSH Q12H Pentoxifylline [TRENtal] 400 mg PO TID Potassium Chloride [Klor-Con M20] 20 meq PO TID 07/14/20 12:01 Comfort Measures [OM.PC] Routine 07/14/20 12:33 Ondansetron [Zofran ODT] 4 mg PO Q8HR PRN 07/14/20 12:35 Polyvinyl Alcohol [LiquiTears 1.4% Ophth Soln] 0 ml EYEBOTH Q8HR PRN 07/14/20 13:00 Enoxaparin [Lovenox] 80 mg SUBCUT Q24H 07/14/20 15:44 Vital Signs [RC] Q4HR 07/14/20 Dinner Nothing per Oral Now Diet [DIET] 07/14/20 18:00 Furosemide [Lasix] 40 mg IVPUSH Q8H Gabapentin [Neurontin] 600 mg PO TID 07/14/20 20:00 Lactobacillus Rhamnosus GG [Culturelle] 1 cap PO BEDTIME Melatonin 6 mg PO BEDTIME atorvaSTATin [Lipitor] 40 mg PO BEDTIME hydrOXYzine HCL [Atarax] 12.5 mg PO BEDTIME 07/15/20 01:03 Communication Order [RC] DAILY 07/15/20 05:11 EKG Documentation Completion [RC] ASDIRECTED Venous Doppler Lwr Ext Bi [US] Urgent EKG 12 Lead [EK] Routine 07/15/20 08:00 Aspirin [Halfprin] 81 mg PO DAILY Famotidine [Pepcid] 20 mg IVPUSH DAILY Fluticasone Propionate [Flonase] 0 gm NASBOTH DAILY Hydroxychloroquine [Plaquenil] 200 mg PO DAILY Levothyroxine [Synthroid] 50 mcg PO DAILY Loratadine [Claritin] 10 mg PO DAILY Lutein/Min/Vit C/Vit E Acetate [Ocuvite Lutein] 1 each PO DAILY Metoprolol Succinate [Toprol XL] 50 mg PO DAILY Multivitamins [Tab-A-Gerardo] 1 tab PO DAILY Sertraline [Zoloft] 25 mg PO DAILY 07/15/20 09:16 CULTURE MRSA SURVEY [RM] Routine 07/15/20 09:18 CULTURE WOUND + SMEAR [RM] Routine 07/15/20 09:19 MRSA BY PCR [MREF] Routine 07/16/20 05:11 Chest 2V [CR] Routine CBC WITH AUTO DIFF [HEME] Routine - Assessment Assessment:: As above - Plan Plan:: As above. Extensive precautions were given to the patient, who is in agreement with the treatment plan. The patient will require about 2-3 days of inpatient/acute care secondary to multiple health problems as above. Michelet estrada physician assumes care in the a.m.
[2020-07-15] MEDS: Gabapentin 300 MG Cap PO SCH ×3 (10:15→17:31)
[2020-07-15] MEDS: Multivitamin Tab PO SCH (10:16)
[2020-07-15] MEDS: Aspirin 81 MG Tab.EC PO SCH (10:16)
[2020-07-15] MEDS: Metoprolol Succinate 50 MG Tab.ER PO SCH (10:16)
[2020-07-15] MEDS: Pentoxifylline 400 MG Tab.ER PO SCH ×3 (10:16→17:31)
[2020-07-15] MEDS: Levothyroxine 50 MCG Tab PO SCH (10:16)
[2020-07-15] MEDS: Potassium Chloride 20 MEQ Tab.ER PO SCH ×2 (10:18→17:31)
[2020-07-15] MEDS: Famotidine 20 MG/2 ML SDV IVPUSH SCH (10:19)
[2020-07-15] MEDS: Lutein/Minerals/Vitamin C/Vitamin E Acetate Cap PO SCH (10:19)
[2020-07-15] MEDS: Fluticasone Propionate Nasal Spray 16 GM Bottle NASBOTH SCH (10:19)
[2020-07-15] MEDS: Hydroxychloroquine 200 MG Tab PO SCH (10:20)
[2020-07-15] MEDS: Loratadine 10 MG Tab PO SCH (10:20)
[2020-07-15] MEDS: Sertraline 25 MG Tab PO SCH (10:21)
[2020-07-15] MEDS: Enoxaparin 80 MG/0.8 ML Syringe SUBCUT SCH (12:55)
--- OUTSIDE RECORDS SUMMARY | 2020-07-15 13:53 | XMSREPORT ---
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) H/O arthritis (V13.4) (Z87.39) H/O TIA (transient ischemic attack) and stroke (V12.54) (Z86 .73) Sleep disturbance (780.50) (G47.9) GERD (gastroesophageal reflux disease) (530.81) (K21.9) Easy bruisability (782.9) (R23.8) Edema leg (782.3) (R60.0) High blood pressure (401.9) (I10) Hyperlipidemia (272.4) (E78.5) Encounter for examination for admission to assisted living facility (V70.8) (Z02.2) Chronic obstructive pulmonary disease, unspecified (496) (J4 4.9) Acquired hypothyroidism (244.9) (E03.9) PAD (peripheral artery disease) (443.9) (I73.9) Anxiety (300.00) (F41.9) Chronic pain disorder (338.4) (G89.4) Lupus (710.0) (M32.9) Sinusitis (473.9) (J32.9) Allergies and Adverse Reactions Bactrim TABS (Allergy) CeFAZolin Sodium SOLN (Allergy) Cephalexin CAPS (Allergy) Clindamycin HCl CAPS (Allergy) Lincocin SOLN (Allergy) Penicillins (Allergy) Vancomycin HCl SOLR (Allergy) Medications Brovana 15 MCG/2ML Inhalation Nebulizati on Solution; INHALE THE CONTENTS OF 1 VIAL TWO TIMES DAILY IN THE MORNING AND EVENING VIA STANDARD JET NEBULIZER DIRECTED. Aditya Le Quantity: 60 Refills: 11 Aspirin 81 MG TABS; TAKE 1 TABLET DAILY. , R.N. Refills: 0 Atorvastatin Calcium 40 MG Oral Tablet; TAKE 1 TABLET AT BEDTIME Aditya Le Start: 12-Mar-2015 Quantity: 90 Refills: 3 Centrum Silver Oral Tablet; TAKE 1 TABLET DAILY. , R.N. Refills: 0 Clopidogrel Bisulfate 75 MG Oral Tablet; TAKE 1 TABLET EVERY DAY Aditya Le Start: 05-Jun-2016 Quantity: 90 Refills: 3 Etodolac 300 MG Oral Capsule; Take 1 capsule twice mario ly as needed Aditya Le Start: 21-Mar-2017 Quantity: 180 Refills: 1 Fluticasone Propionate 50 MCG/ACT Nasal Suspension; USE 1 SPRAY IN EACH NOSTRIL ONCE DAILY. Aditya Le Quantity: 3 Refills: 3 Furosemide 20 MG Oral Tablet; TAKE 1 TABLET EVERY DAY Aditya Pedersen Start: 21-Mar-2017 Quantity: 90 Refills: 1 Hydroxychloroquine Sulfate 200 MG Oral Tablet; TAKE 1 TABLET EVERY DAY Aditya Le Start: 23-May-2017 Quantity: 90 Refills: 1 Levothyroxine Sodium 50 MCG Oral Tablet; TAKE 1 TABLET EVERY DAY Aditya Le Start: 05-Jun-2016 Quantity: 90 Refills: 3 Metoprolol Succinate ER 50 MG Oral Table t Extended Release 24 Hour; TAKE 1 TABLET ONE TIME DAILY Aditya Le Start: 05-Jun-2016 Quantity: 90 Refills: 3 Vision TABS; TAKE 1 TABLET DAILY. , R.N. Refills: 0 NIFEdipine ER 30 MG Oral Tablet Extended Release 24 Hour; TAKE 1 TABLET EVERY DAY Aditya Le Start: 05-Jun-2016 Quantity: 90 Refills: 3 Pentoxifylline ER 400 MG Oral Tablet Ext ended Release; Take 1 tablet three times daily Aditya Le Start: 26-Jun-2017 Quantity: 270 Refills: 3 DHEA 25 MG Oral Capsule; TAKE 1 CAPSULE Daily Anthony Le Quantity: 90 Refills: 3 Budesonide 0.25 MG/2ML Inhalation Suspen [place]; USE 1 UNIT DOSE VIA NEBULIZER TWO TIMES A DAY Aditya Le Quantity: 60 Refills: 11 Oxygen , R.N. Refills: 0 Pantoprazole Sodium 40 MG Oral Tablet De layed Release; TAKE 1 TABLET EVERY DAY 30 MINUTES BEFORE BREAKFAST Aditya Le Start: 19-Aug-2014 Quantity: 90 Refills: 3 Vitamin D3 25 MCG (1000 UT) Oral Capsule; TAKE DIRECTED. , R.N. Refills: 0 LORazepam 0.5 MG Oral Tablet; TAKE 1/2 T O 1 TABLET TWICE DAILY NEEDED. 6-10 hours apart Aditya Le Start: 27-Oct-2015 Quantity: 60 Refills: 5 traMADol HCl - 50 MG Oral Tablet; TAKE 1 TABLET BY MOUTH EVERY 4 TO 6 HOURS NEEDED FOR PAIN Aditya Le Start: 14-Feb-2016 Quantity: 40 Refills: 0 Acetylcysteine 20 % Inhalation Solution; INHALE 3 ML 3 times daily Aditya Le Start: 30-Oct-2016 Quantity: 1 30 ML Vial (3 Vials) Refills: 1 Anucort-HC 25 MG Rectal Suppository; INS ERT 1 SUPPOSITORY RECTALLY 2 TIMES DAILY. Aditya Le Start: 19-Dec-2016 Quantity: 24 Refills: 1 Procto-Med HC 2.5 % CREA , R.N. Start: 017 Quantity: 30 Refills: 0 Azithromycin 250 MG Oral Tablet; TAKE 2 TABLETS ON DAY 1 THEN TAKE 1 TABLET A DAY FOR 4 DAYS. Patricia Mccartney Start: 25-Oct-2018 Quantity: 1 6 Tablet Pack Refills: 0 Procedures History of Appendectomy Status: Complete d History of Gallbladder Surgery Status: C ompleted History of Total Hip Replacement Status: Completed Immunizations Pneumovax 23 25 MCG/0.5ML Injection Injectable On: 7 Zoster (Zostavax) On: 30-Aug-2007 CHI Flu Vaccine (3 yrs and above) On: 27-Apr-2014 Lot #: [id number], Novartis CHI Flu Vaccine Quadrivalent (3 yrs and above) On: 05-May-20 15 Lot #: [id number], Sanofi Pasteur Prevnar 13 Intramuscular Suspension On: 02-Mar-2016 Tdap On: 02-Mar-2016 Fluzone High-Dose 0.5 ML Intramuscular Suspension Pref illed Syringe On: 02-May-2018 SANOFI PASTEUR Family History Family history of chronic obstructive pulmonary disease (V17 .6) Status: Active (Z82.5) Family history of type 1 diabetes mellitus (V18.0) (Z83.3) S tatus: Active Social History - Never smoked tobacco Plan of Treatment Planned Goals not documented Results No Known Results Results not documented Encounters Appointment; Patricia Mccartney 25-Oct-2018 14:30 Encounter Diagnosis: Problem not documented
--- OUTSIDE RECORDS SUMMARY | 2020-07-15 13:53 | XMSREPORT ---
:1940 Author Organization [facility] Address [address] [place] [address] Phone Reason For Referral No Reason for Referral was given. History Of Present Illness No HPI available. Assessments No Assessments available Plan of Care Name Dates Details Planned Observations Hospital Referral Request
[2020-07-15] MEDS: Nystatin Topical Powder 15 GM Bottle TOP SCH (17:33)
[2020-07-15] MEDS: atorvaSTATin 40 MG Tab PO SCH (19:17)
[2020-07-15] MEDS: Lactobacillus Rhamnosus GG (Probiotic) Cap PO SCH (19:17)
[2020-07-15] MEDS: Melatonin 3 MG Tab PO SCH (19:18)
[2020-07-15] MEDS: hydrOXYzine HCl 25 MG Tab PO SCH (19:18)
[2020-07-15] MEDS ORDERED: Isosorbide Mononitrate 30 MG Tab.ER PO SCH (20:00)
[2020-07-16] MEDS: Acetaminophen 325 MG Tab PO PRN (03:03)
[2020-07-16] MEDS ORDERED: Acetaminophen/HYDROcodone 325-5 MG Tab PO PRN (07:20)
[2020-07-16] MEDS: Hydroxychloroquine 200 MG Tab PO SCH (07:51)
[2020-07-16] MEDS: Acetaminophen/HYDROcodone 325-5 MG Tab PO SCH ×2 (07:51→18:18)
[2020-07-16] MEDS: Levothyroxine 50 MCG Tab PO SCH (07:52)
[2020-07-16] MEDS: Lutein/Minerals/Vitamin C/Vitamin E Acetate Cap PO SCH (07:52)
[2020-07-16] MEDS: Gabapentin 300 MG Cap PO SCH ×3 (07:52→18:17)
[2020-07-16] MEDS: Sertraline 25 MG Tab PO SCH (07:53)
[2020-07-16] MEDS: Loratadine 10 MG Tab PO SCH (07:59)
[2020-07-16] MEDS: Nystatin Topical Powder 15 GM Bottle TOP SCH ×2 (08:00→18:23)
[2020-07-16] MEDS: Multivitamin Tab PO SCH (08:00)
[2020-07-16] MEDS: Fluticasone Propionate Nasal Spray 16 GM Bottle NASBOTH SCH (08:00)
[2020-07-16] MEDS: Aspirin 81 MG Tab.EC PO SCH (08:00)
[2020-07-16] MEDS: Pentoxifylline 400 MG Tab.ER PO SCH ×3 (08:00→18:17)
[2020-07-16] MEDS: Potassium Chloride 20 MEQ Tab.ER PO SCH ×2 (08:00→18:17)
[2020-07-16] MEDS: Famotidine 20 MG/2 ML SDV IVPUSH SCH (08:01)
[2020-07-16] MEDS: Pantoprazole 40 MG Vial IVPUSH SCH ×2 (08:01→19:41)
[2020-07-16] MEDS: Sodium Chloride 0.9% 10 ML Syringe FLUSH PRN ×2 (08:03→19:41)
[2020-07-16] MEDS ORDERED: Iopamidol 755 Mg/ML 100 ML Bottle IVPUSH ONE (10:00)
[2020-07-16] MEDS ORDERED: Sodium Chloride 0.9% 250 ML IV ONE (11:00)
[2020-07-16] MEDS: Metoprolol Succinate 50 MG Tab.ER PO SCH (11:07)
[2020-07-16] MEDS: Furosemide 40 MG/4 ML VIAL IVPUSH SCH ×2 (11:07→19:12)
[2020-07-16] MEDS: Enoxaparin 80 MG/0.8 ML Syringe SUBCUT SCH (12:43)
--- NOTE | 2020-07-16 16:29 | PCM.PN ---
- General Info Date of Service: 07/16/20 Admission Dx/Problem (Free Text): Evaluated for complaint of chills/weakness/SOB 1. CHF 2. D-dimer elevation 3. Coronary artery disease Subjective Update: Pt feeling much better. Stronger. Still on O2 NC Functional Status: Reports: Pain Controlled - Review of Systems General: Reports: No Symptoms HEENT: Denies: Headaches, Post Nasal Drip, Sinus Congestion, Sore Throat Pulmonary: Denies: Shortness of Breath, Pleuritic Chest Pain, Cough, Sputum, Hemoptysis, Wheezing Cardiovascular: Denies: Chest Pain, Dyspnea on Exertion (is on O2 NC), Orthopnea, Lightheadedness Gastrointestinal: Reports: No Symptoms Genitourinary: Denies: Dysuria, Frequency, Pain, Urgency, Hematuria, Flank Pain Musculoskeletal: Reports: Other (no acute changes from baseline) Skin: Reports: Other (Has chronic nonhealing sores both lower legs. 6 month history nonhealing wound right groin from when ingrown hair removed, increased drainage last few days) Neurological: Reports: Other (no acute changes) Psychiatric: Reports: No Symptoms - Patient Data Vitals - Most Recent: Last Vital Signs Temp 36.3 C 07/16/20 12:00 Pulse 77 07/16/20 12:00 Resp 20 07/16/20 12:00 BP 110/50 L 07/16/20 12:00 Pulse Ox 99 07/16/20 12:00 Weight - Most Recent: 83.688 kg I&O - Last 24 Hours: Intake & Output 07/16/20 07/16/20 07/16/20 06:59 14:59 22:59 Intake Total 150 760 Balance 150 760 Lab Results Last 24 Hours: Laboratory Results - last 24 hr 07/16/20 07/16/20 Range/Units 08:00 08:00 WBC 8.0 (4.0-10.2) K/uL RBC 4.39 (3.77-5.09) M/uL Hgb 11.4 L (11.7-15.5) g/dL Hct 39.1 (34.0-46.0) % MCV 89.1 (84.0-98.0) fL MCH 26.0 L (28.2-33.3) pg MCHC 29.2 L (31.7-36.0) g/dL RDW 15.8 H (11.2-14.1) % Plt Count 215 (150-350) K/uL Neut % (Auto) 59.5 (45.0-80.0) % Lymph % (Auto) 22.7 (10.0-50.0) % Marshall % (Auto) 11.9 (2.0-14.0) % Eos % (Auto) 5.6 H (0.0-5.0) % Baso % (Auto) 0.3 (0.0-2.0) % Neut # (Auto) 4.74 (1.40-7.00) K/uL Lymph # (Auto) 1.81 (0.50-3.50) K/uL Marshall # (Auto) 0.95 (0.00-1.00) K/uL Eos # (Auto) 0.45 (0.00-0.50) K/uL Baso # (Auto) 0.02 (0.00-0.20) K/uL Sodium 140 (136-145) mmol/L Potassium 4.2 (3.5-5.1) mmol/L Chloride 99 (98-107) mmol/L Carbon Dioxide 36.3 H (21.0-32.0) mmol/L BUN 22 H (7-18) mg/dL Creatinine 1.25 H (0.51-1.17) mg/dL Est Cr Clr Drug Dosing 30.48 mL/min Estimated GFR (MDRD) 41 mL/min Glucose 101 (74-106) mg/dL Uric Acid 8.5 H (2.6-7.2) mg/dL Calcium 9.0 (8.5-10.1) mg/dL Magnesium 2.1 (1.8-2.4) mg/dL Creatine Kinase 922 H (26-308) U/L Creatine Kinase Index 1.1 (0.0-2.5) % CK-MB (CK-2) 10.60 H* (0.00-3.60) ng/mL Troponin I 0.000 (0.000-0.056) ng/mL NT-Pro-B Natriuret Pep 562 H (0-125) pg/mL Eugenio Results Last 24 Hours: Microbiology 07/15/20 12:20 Gram Stain - Final Leg, Right Wound Culture - Preliminary 07/14/20 08:35 Aerobic Blood Culture - Preliminary Blood - Venous - Lab Draw NO GROWTH AFTER 2 DAYS Anaerobic Blood Culture - Preliminary NO GROWTH AFTER 2 DAYS 07/14/20 08:30 Aerobic Blood Culture - Preliminary Blood - Venous NO GROWTH AFTER 2 DAYS Anaerobic Blood Culture - Preliminary NO GROWTH AFTER 2 DAYS 07/15/20 12:00 Stool Occult Blood (EUGENIO) - Final Stool / Feces NEGATIVE OCCULT BLOOD REFERENCE RANGE: NEGATIVE Med Orders - Current: Current Medications Acetaminophen (Tylenol) 650 mg PO Q4H PRN PRN Reason: Pain Last Admin: 07/16/20 03:03 Dose: 650 mg Documented by: Hydrocodone Bitart/Acetaminophen (Coleman 325-5 Mg) 1 tab PO BID [facility] Last Admin: 07/16/20 07:51 Dose: 1 tab Documented by: Hydrocodone Bitart/Acetaminophen (Coleman 325-5 Mg) 1 tab PO DAILY PRN PRN Reason: Pain Artificial Tears (Liquitears 1.4% Ophth Soln) 0 ml EYEBOTH Q8HR PRN PRN Reason: Dry Eyes Aspirin (Halfprin) 81 mg PO DAILY [facility] Last Admin: 07/16/20 08:00 Dose: 81 mg Documented by: Atorvastatin Calcium (Lipitor) 40 mg PO BEDTIME [facility] Last Admin: 07/15/20 19:17 Dose: 40 mg Documented by: Enoxaparin Sodium (Lovenox) 80 mg SUBCUT Q24H [facility] Last Admin: 07/16/20 12:43 Dose: 80 mg Documented by: Famotidine (Pepcid) 20 mg IVPUSH DAILY [facility] Last Admin: 07/16/20 08:01 Dose: 20 mg Documented by: Fluticasone Propionate (Flonase) 0 gm NASBOTH DAILY [facility] Last Admin: 07/16/20 08:00 Dose: 1 spray Documented by: Furosemide (Lasix) 40 mg IVPUSH BID [facility] Last Admin: 07/16/20 11:07 Dose: Not Given Documented by: Gabapentin (Neurontin) 600 mg PO TID [facility] Last Admin: 07/16/20 12:44 Dose: 600 mg Documented by: Hydroxychloroquine Sulfate (Plaquenil) 200 mg PO DAILY [facility] Last Admin: 07/16/20 07:51 Dose: 200 mg Documented by: Hydroxyzine HCl (Atarax) 12.5 mg PO BEDTIME [facility] Last Admin: 07/15/20 19:18 Dose: 12.5 mg Documented by: Hydroxyzine HCl (Atarax) 12.5 mg PO Q8HR PRN PRN Reason: Itching Last Admin: 07/16/20 04:37 Dose: 12.5 mg Documented by: Isosorbide Mononitrate (Imdur) 15 mg PO BEDTIME [facility] Last Admin: 07/15/20 19:17 Dose: 15 mg Documented by: Lactobacillus Rhamnosus (Culturelle) 1 cap PO BEDTIME [facility] Last Admin: 07/15/20 19:17 Dose: 1 cap Documented by: Levothyroxine Sodium (Synthroid) 50 mcg PO DAILY [facility] Last Admin: 07/16/20 07:52 Dose: 50 mcg Documented by: Loratadine (Claritin) 10 mg PO DAILY [facility] Last Admin: 07/16/20 07:59 Dose: 10 mg Documented by: Melatonin (Melatonin) 6 mg PO BEDTIME [facility] Last Admin: 07/15/20 19:18 Dose: 6 mg Documented by: Metoprolol Succinate (Toprol Xl) 50 mg PO DAILY [facility] Last Admin: 07/16/20 11:07 Dose: Not Given Documented by: Multivitamins/Minerals/Vitamin C (Tab-A-Gerardo) 1 tab PO DAILY [facility] Last Admin: 07/16/20 08:00 Dose: 1 tab Documented by: Nystatin (Nystop) 0 gm TOP BID [facility] Last Admin: 07/16/20 08:00 Dose: 1 applic Documented by: Ondansetron HCl (Zofran Odt) 4 mg PO Q8HR PRN PRN Reason: Nausea Last Admin: 07/14/20 18:50 Dose: 4 mg Documented by: Pantoprazole Sodium (Protonix Iv) 40 mg IVPUSH Q12H [facility] Last Admin: 07/16/20 08:01 Dose: 40 mg Documented by: Pentoxifylline (Trental) 400 mg PO TID [facility] Last Admin: 07/16/20 12:43 Dose: 400 mg Documented by: Potassium Chloride (Klor-Con M20) 20 meq PO BID [facility] Last Admin: 07/16/20 08:00 Dose: 20 meq Documented by: Sertraline HCl (Zoloft) 25 mg PO DAILY [facility] Last Admin: 07/16/20 07:53 Dose: 25 mg Documented by: Sodium Chloride (Saline Flush) 10 ml FLUSH ASDIRECTED PRN PRN Reason: Keep Vein Open Last Admin: 07/15/20 17:31 Dose: 10 ml Documented by: Sodium Chloride (Saline Flush) 10 ml FLUSH ASDIRECTED PRN PRN Reason: Keep Vein Open Last Admin: 07/15/20 00:51 Dose: 10 ml Documented by: Sodium Chloride (Saline Flush) 10 ml FLUSH Q12HR PRN PRN Reason: Keep Vein Open Last Admin: 07/16/20 08:03 Dose: 10 ml Documented by: Vit C/Vit E/Zinc/Copper/Lutein (Ocuvite Lutein) 1 each PO DAILY [facility] Last Admin: 07/16/20 07:52 Dose: 1 each Documented by: Discontinued Medications Famotidine (Pepcid) 40 mg IVPUSH ONETIME ONE Stop: 07/14/20 08:40 Last Admin: 07/14/20 08:48 Dose: 40 mg Documented by: Furosemide (Lasix) 60 mg IVPUSH NOW ONE Stop: 07/14/20 09:32 Last Admin: 07/14/20 10:08 Dose: 60 mg Documented by: Furosemide (Lasix) 40 mg IVPUSH Q8H [facility] Last Admin: 07/15/20 00:59 Dose: 40 mg Documented by: Sodium Chloride (Normal Saline) 250 mls @ 125 mls/hr IV ONETIME ONE Stop: 07/16/20 12:59 Last Admin: 07/16/20 12:44 Dose: 125 mls/hr Documented by: Iopamidol (Isovue-370 (76%)) 100 ml IVPUSH ONETIME ONE Stop: 07/16/20 10:01 Last Admin: 07/16/20 12:53 Dose: 100 ml Documented by: Pantoprazole Sodium (Protonix Iv) 40 mg IVPUSH Q12H [facility] Last Admin: 07/15/20 12:03 Dose: 40 mg Documented by: Potassium Chloride (Klor-Con M20) 20 meq PO TID [facility] Last Admin: 07/15/20 10:18 Dose: 20 meq Documented by: - Exam Quality Assessment: Supplemental Oxygen, DVT Prophylaxis General: Alert, Oriented, Cooperative, No Acute Distress HEENT: Pupils Equal, Pupils Reactive, EOMI, Mucous Membr. Moist/[place] Neck: Supple Lungs: Normal Respiratory Effort, Rales (mild/bases). No: Rhonchi, Stridor, Wheezing Cardiovascular: Regular Rate, Regular Rhythm, No Murmurs GI/Abdominal Exam: Normal Bowel Sounds, Soft, Non-Tender, No Distention (Female) Exam: Deferred Back Exam: No: CVA Tenderness (L), CVA Tenderness (R), Muscle Spasm Extremities: Normal Capillary Refill, Other (bandages over ankle area/medial ankles both with chronic sores, also draining area right groin) Skin: Other (see above) Neurological: No New Focal Deficit Psy/Mental Status: Alert, Normal Affect, Normal Mood Sepsis Event Note - Evaluation Sepsis Screening Result: No Definite Risk - Focused Exam Vital Signs: Vital Signs Temp Pulse Resp BP BP Pulse Ox 07/16/20 12:00 36.3 C 77 20 110/50 L 99 07/16/20 10:20 83 16 110/57 L 99 07/16/20 08:06 36.5 C 78 16 105/49 L 100 07/16/20 05:37 36.4 C 77 14 99/48 L 98 - Problem List & Annotations (1) CHF (congestive heart failure) SNOMED Code(s): 30315312 Code(s): I50.9 - HEART FAILURE, UNSPECIFIED Status: Acute Priority: High Current Visit: Yes Onset Date: 12/26/17 Qualifiers: Heart failure type: unspecified Heart failure chronicity: acute on chronic Qualified Code(s): I50.9 - Heart failure, unspecified Annotation/Comment:: Persistent hypoxemia at rest on room air with O2 sat of only 75% earlier on admission. Otherwise O2 sats are stable at 2 L/min by nasal cannula. Excellent urine output with aggressive IV Lasix therapy, which was decreased somewhat secondary to patient's mildly progressive renal insufficiency. Moderate exacerbation of her CHF with moderate bilateral pleural effusions suspected at time of admission as per emergency room note. IV Lasix therapy initiated in the emergency room. Standard [place] orders requested. The patient's EKG did show progressive anterior wall cardiac changes per . He discussed various therapeutic options with the patient and by telephone with her daughter, Priti, with both parties electing to try medical management initially with no further transfer to [place] for heart catheterization, etc. at this time. Note current comfort care with no further echocardiogram, etc.. No chest pain or anginal type symptoms. Troponins negative, however CK and CKMB elevated. Suspect myocardial injury of some sort given elevations. Again, patient wants comfort care approach at this time. Cardiology consultation depending on her clinical course and treatment preferences. Note normal glycosylated hemoglobin of 5.6% and normal fasting lipid profile on 07/16/2020. Initiated low-dose Imdur therapy led to hypotension and will be held for now. (2) Groin incision ulcer SNOMED Code(s): 306544813, 791362959 Code(s): L98.499 - NON-PRESSURE CHRONIC ULCER OF SKIN OF SITES W UNSP SEVERITY Status: Chronic Priority: High Current Visit: Yes Annotation/Comment:: Patient had removal of ingrown hair around 6 mo ago per self report and incision "never healed". Now is draining purulent material. Pending ID of organism. Patient has no increased redness/pain of area. No fevers (3) Elevated d-dimer SNOMED Code(s): 170962123 Code(s): R79.89 - OTHER SPECIFIED ABNORMAL FINDINGS OF BLOOD CHEMISTRY Status: Acute Priority: High Current Visit: Yes Onset Date: 07/14/20 Annotation/Comment:: Initiated subcu Lovenox prophylactic therapy on admission. No clinical evidence of PE or DVT. Venous Doppler studies were conducted with negative result. CT able to be performed on 07/[address] was up and running and no obvious evidence of PEs were noted. Radiology did see groundglass changes that might indicate pneumonia/pneumonitis of right upper lobe. Small airway disease bilateral upper lobes and right middle lobe. Elevation right hemidiaphragm noted. (4) Hyperuricemia SNOMED Code(s): 02117993 Code(s): E79.0 - HYPERURICEMIA W/O SIGNS OF INFLAM ARTHRIT AND TOPHACEOUS DIS Status: Acute Priority: Medium Current Visit: Yes Onset Date: 07/14/20 Annotation/Comment:: Newly diagnosed. No gout type symptoms. Continue to observe closely secondary to her IV Lasix therapy. Her arthritis is otherwise stable. (5) Hypoalbuminemia SNOMED Code(s): 842529574 Code(s): E88.09 - OTH DISORDERS OF PLASMA-PROTEIN METABOLISM, NEC Status: Acute Priority: Medium Current Visit: Yes Onset Date: 12/25/17 Annotation/Comment:: Consider high protein Glucerna supplements as snacks with history of chronic hypoalbuminemia. 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 Observe for now. (7) Venous stasis ulcers Status: Acute Priority: Medium Current Visit: Yes Onset Date: 12/25/17 Qualifiers: Venous stasis ulcer site: ankle Varicose vein presence: with varicose veins Laterality: left Non-pressure ulcer stage: limited to breakdown of skin Qualified Code(s): I83.023 - Varicose veins of left lower extremity with ulcer of ankle; L97.321 - Non-pressure chronic ulcer of left ankle limited to breakdown of skin Annotation/Comment:: Chronic/unchanged (8) Anemia SNOMED Code(s): 301326735 Code(s): D64.9 - ANEMIA, UNSPECIFIED Status: Chronic Priority: Low Current Visit: Yes Qualifiers: Anemia type: due to chronic kidney disease Chronic kidney disease stage: stage 3 (moderate) Chronic kidney disease stage 3 subtype: stage 3a (GFR 45- 59) Qualified Code(s): N18.31 - Chronic kidney disease, stage 3a; D63.1 - Anemia in chronic kidney disease Annotation/Comment:: Improved hemoglobin on 07/15 as above. Stable anemia per medical records. Note renal insufficiency as above. Vitamin B12 level, folic acid level, TIBC panel and ferritin level with next set of blood work. (9) Coronary artery disease SNOMED Code(s): 66023596 Code(s): I25.10 - ATHSCL HEART DISEASE OF [place] CORONARY ARTERY W/O ANG PCTRS Status: Chronic Priority: Medium Current Visit: Yes Qualifiers: Coronary Disease-Associated Artery/Lesion type: [place] artery [place] vs. transplanted heart: [place] heart Associated angina: without angina Qualified Code(s): I25.10 - Atherosclerotic heart disease of [place] coronary artery without angina pectoris Annotation/Comment:: As above. Note progressive anterior wall cardiac ischemia by resting EKG with persistent hypoxia at rest and exacerbation of her previous CHF as above. Note comfort care. Cardiology consultation depending on her clinical course. No recent chest pain or anginal type symptoms and previously stable by history. Elevating CK and CKMB over last few days (10) HTN, Benign hypertension SNOMED Code(s): 35152653 Code(s): I10 - ESSENTIAL (PRIMARY) HYPERTENSION Status: Chronic Priority: Medium Current Visit: Yes Annotation/Comment:: Blood pressures under good control during ER visit with mild nonsymptomatic hypotension at that time. Otherwise blood pressures have been stable during this hospitalization. (11) Hypothyroidism (acquired) SNOMED Code(s): 593212767 Code(s): E03.9 - HYPOTHYROIDISM, UNSPECIFIED Status: Chronic Priority: Medium Current Visit: Yes Annotation/Comment:: Currently under therapy normal TSH on 07/14/2020. (12) Mixed anxiety depressive disorder SNOMED Code(s): 336013977 Code(s): F41.8 - OTHER SPECIFIED ANXIETY DISORDERS Status: Chronic Priority: Medium Current Visit: Yes Annotation/Comment:: Stable by history. Continue to observe closely by her regular providers. Note chronic narcotic use. (13) Need for comfort care SNOMED Code(s): 590888600, 633445802 Code(s): EOP8835 - Status: Chronic Priority: Medium Current Visit: Yes Annotation/Comment:: Confirmed with the patient and her daughter today. (14) Osteoarthritis SNOMED Code(s): 114679983 Code(s): M19.90 - UNSPECIFIED OSTEOARTHRITIS, UNSPECIFIED SITE Status: Chronic Priority: Medium Current Visit: No Qualifiers: Osteoarthritis location: multiple joints Osteoarthritis type: primary Qualified Code(s): M89.49 - Other hypertrophic osteoarthropathy, multiple sites Annotation/Comment:: Stable by history. Note history of SLE with current Plaquen [place] therapy. (15) Peptic reflux disease SNOMED Code(s): 753028453 Code(s): K21.9 - GASTRO-ESOPHAGEAL REFLUX DISEASE WITHOUT ESOPHAGITIS Status: Chronic Priority: Medium Current Visit: Yes Annotation/Comment:: Stable by history with current medical therapy. No evidence of acute GI bleed. IV Pepcid given as GI prophylaxis. Note previous nonspecific anemia with blood transfusions 2 required in December and January 2018 as above. Continue to observe closely by regular providers. Mild persistent anemia however improved hemoglobin of 11.0 on 07/15 despite subcu Lovenox therapy as above. Note negative Hemoccult. (16) Renal insufficiency SNOMED Code(s): 616474461, 666174378 Code(s): N28.9 - DISORDER OF KIDNEY AND URETER, UNSPECIFIED Status: Chronic Priority: Medium Current Visit: Yes Annotation/Comment:: As above - Problem List Review Problem List Initiated/Reviewed/Updated: Yes - My Orders Last 24 Hours: My Active Orders 07/16/20 07:20 Acetaminophen/HYDROcodone [Coleman 325-5 MG] 1 tab PO DAILY PRN 07/16/20 08:00 Acetaminophen/HYDROcodone [Coleman 325-5 MG] 1 tab PO BID 07/16/20 09:49 PE Chest [Ang Chest] [CT] Routine 07/16/20 15:04 UA W/MICROSCOPIC [URIN] Routine 07/16/20 16:22 CORONAVIRUS COVID-19 KIMBERLY [MOLEC] Routine 07/17/20 05:11 MAGNESIUM [CHEM] AM 07/17/20 05:15 BASIC METABOLIC PANEL,BMP [CHEM] AM CBC WITH AUTO DIFF [HEME] AM - Assessment Assessment:: As above - Plan Plan:: As above. Initiate antibiotic coverage for pneumonia identified on CT. Also waiting for culture results from right groin wound. Anticipate possible discharge over weekend depending on clinical course.
[2020-07-16] MEDS ORDERED: Azithromycin 500 MG in Sodium Chloride 0.9% 250 ML IV SCH (16:45)
[2020-07-16] MEDS: Doxycycline Monohydrate 100 MG Cap PO SCH (18:17)
[2020-07-16] MEDS: Albuterol/Ipratropium 4 GM Inhalation Spray INH SCH (19:41)
[2020-07-16] MEDS: hydrOXYzine HCl 25 MG Tab PO SCH (19:41)
[2020-07-16] MEDS: Melatonin 3 MG Tab PO SCH (19:41)
[2020-07-16] MEDS: Lactobacillus Rhamnosus GG (Probiotic) Cap PO SCH (19:41)
[2020-07-16] MEDS: atorvaSTATin 40 MG Tab PO SCH (19:41)
[2020-07-17] MEDS: Doxycycline Monohydrate 100 MG Cap PO SCH ×2 (08:55→17:08)
[2020-07-17] MEDS: Multivitamin Tab PO SCH (08:55)
[2020-07-17] MEDS: Sertraline 25 MG Tab PO SCH (08:56)
[2020-07-17] MEDS: Gabapentin 300 MG Cap PO SCH ×3 (08:56→17:08)
[2020-07-17] MEDS: Hydroxychloroquine 200 MG Tab PO SCH (08:56)
[2020-07-17] MEDS: Aspirin 81 MG Tab.EC PO SCH (08:56)
[2020-07-17] MEDS: Pentoxifylline 400 MG Tab.ER PO SCH ×3 (08:56→17:09)
[2020-07-17] MEDS: Lutein/Minerals/Vitamin C/Vitamin E Acetate Cap PO SCH (08:57)
[2020-07-17] MEDS: Loratadine 10 MG Tab PO SCH (08:57)
[2020-07-17] MEDS: Acetaminophen/HYDROcodone 325-5 MG Tab PO SCH ×2 (08:57→17:09)
[2020-07-17] MEDS: Pantoprazole 40 MG Vial IVPUSH SCH (08:58)
[2020-07-17] MEDS: Famotidine 20 MG/2 ML SDV IVPUSH SCH (08:58)
[2020-07-17] MEDS: Levothyroxine 50 MCG Tab PO SCH (08:58)
[2020-07-17] MEDS: Potassium Chloride 20 MEQ Tab.ER PO SCH ×2 (08:58→17:08)
[2020-07-17] MEDS: Furosemide 40 MG/4 ML VIAL IVPUSH SCH ×3 (08:58→17:11)
[2020-07-17] MEDS: Nystatin Topical Powder 15 GM Bottle TOP SCH ×2 (08:59→17:15)
[2020-07-17] MEDS: Albuterol/Ipratropium 4 GM Inhalation Spray INH SCH ×3 (08:59→17:08)
[2020-07-17] MEDS: Fluticasone Propionate Nasal Spray 16 GM Bottle NASBOTH SCH (09:01)
[2020-07-17] MEDS: Metoprolol Succinate 50 MG Tab.ER PO SCH (09:09)
[2020-07-17] MEDS: Sodium Chloride 0.9% 10 ML Syringe FLUSH PRN ×2 (09:10)
[2020-07-17] MEDS: Enoxaparin 80 MG/0.8 ML Syringe SUBCUT SCH (13:29)
[2020-07-17 17:13] VITALS: BP 128/51; PULSE 96
--- NOTE | 2020-07-17 18:09 | PCM.DCSUM1 ---
Discharge Summary - Hospital Course Brief History: Patient initially evaluated and admitted for acute SOB/hypoxemia. Later found to have right sided pneumonia. Also worsening drainage from open wound right groin area. Diagnosis: Stroke: No - Discharge Data Discharge Date: 07/17/20 Discharge Disposition: DC/Tfer to Acute Hospital 02 Condition: Good - Referral to Home Health Primary Care Physician: Telma Sharpe NP - Discharge Diagnosis/Problem(s) (1) Right upper lobe pulmonary infiltrate SNOMED Code(s): 342463642 ICD Code: R91.8 - OTHER NONSPECIFIC ABNORMAL FINDING OF LUNG FIELD Status: Acute Priority: High Current Visit: Yes Problem Details: Noted on CT from 07/16. May explain hypoxemia noted at time of admission. Currenly on Doxy. (2) Groin incision ulcer SNOMED Code(s): 576544546, 053447771 ICD Code: L98.499 - NON-PRESSURE CHRONIC ULCER OF SKIN OF SITES W UNSP SEVERITY Status: Chronic Priority: High Current Visit: Yes Problem Details: Patient had removal of ingrown hair around 6 mo ago per self report and incision "never healed". Now is draining increasing amounts of purulent material. MRSA noted by culture. Patient has no increased redness/pain of area. No fevers. On Doxy orally since 07/16 (3) Need for comfort care SNOMED Code(s): 644955180, 547834867 ICD Code: [id number] - Status: Chronic Priority: Medium Current Visit: Yes Problem Details: Confirmed with the patient and her daughter today. (4) CHF (congestive heart failure) SNOMED Code(s): 02701252 ICD Code: I50.9 - HEART FAILURE, UNSPECIFIED Status: Acute Priority: High Current Visit: Yes Onset Date: 12/26/17 Problem Details: Persistent hypoxemia at rest on room air with O2 sat of only 75% earlier on admission. Otherwise O2 sats are now in low 90s on room air. Moderate exacerbation of her CHF with moderate bilateral pleural effusions suspected at time of admission as per emergency room note. IV Lasix therapy initiated in the emergency room. Standard CA orders requested. The patient's EKG did show progressive anterior wall cardiac changes per . Various therapeutic options discussed with the patient and by telephone with her daughter, Priti, with both parties electing to try medical management initially with no further transfer to [place] for heart catheterization, etc. at this time. Note current comfort care with no further echocardiogram, etc.. No chest pain or anginal type symptoms. Tropo nins negative, however CK and CKMB elevated. Suspect myocardial injury of some sort given elevations. Again, patient wants comfort care approach at this time. Cardiology consultation depending on her clinical course and treatment preferences. Note normal glycosylated hemoglobin of 5.6% and normal fasting lipid profile on 07/16/2020. Initiated low-dose Imdur therapy led to hypotension and will be held for now. Qualifiers: Heart failure type: unspecified Heart failure chronicity: acute on chronic Qualified Code(s): I50.9 - Heart failure, unspecified (5) Coronary artery disease SNOMED Code(s): 39609936 ICD Code: I25.10 - ATHSCL HEART DISEASE OF [place] CORONARY ARTERY W/O ANG PCTRS Status: Chronic Priority: Medium Current Visit: Yes Problem Details: As above. Note possible anterior wall cardiac ischemia by resting EKG with persistent hypoxia at rest and exacerbation of her previous CHF as above. Note comfort care. Cardiology consultation depending on her clinical course. No recent chest pain or anginal type symptoms and previously stable by history. Elevating CK and CKMB over last few days Qualifiers: Coronary Disease-Associated Artery/Lesion type: [place] artery [place] vs. transplanted heart: [place] heart Associated angina: without angina Qualified Code(s): I25.10 - Atherosclerotic heart disease of [place] coronary artery without angina pectoris (6) Elevated d-dimer SNOMED Code(s): 102152033 ICD Code: R79.89 - OTHER SPECIFIED ABNORMAL FINDINGS OF BLOOD CHEMISTRY Status: Acute Priority: High Current Visit: Yes Onset Date: 07/14/20 Problem Details: Initiated subcu Lovenox prophylactic therapy on admission. No clinical evidence of PE or DVT. Venous Doppler studies were conducted with negative result. CT able to be performed on 07/[address] was up and running and no obvious evidence of PEs were noted. Radiology did see groundglass changes that might indicate pneumonia/pneumonitis of right upper lobe. Small airway disease bilateral upper lobes and right middle lobe. Elevation right hemidiaphragm noted. Doxy and Combivent initiated 07/16 (7) Anemia SNOMED Code(s): 618688072 ICD Code: D64.9 - ANEMIA, UNSPECIFIED Status: Chronic Priority: Low Current Visit: Yes Problem Details: Improved hemoglobin on 07/15 as above. Stable anemia per medical records. Note renal insufficiency as above. Qualifiers: Anemia type: due to chronic kidney disease Chronic kidney disease stage: stage 3 (moderate) Chronic kidney disease stage 3 subtype: stage 3a (GFR 45- 59) Qualified Code(s): N18.31 - Chronic kidney disease, stage 3a; D63.1 - Anemia in chronic kidney disease (8) HTN, Benign hypertension SNOMED Code(s): 37673428 ICD Code: I10 - ESSENTIAL (PRIMARY) HYPERTENSION Status: Chronic Priority: Medium Current Visit: Yes Problem Details: Hypotension noted with initiation of Imdur along with IV lasix. Imdur d/c'd. Lasix and BP meds held yesterday and today. (9) Hypothyroidism (acquired) SNOMED Code(s): 201070468 ICD Code: E03.9 - HYPOTHYROIDISM, UNSPECIFIED Status: Chronic Priority: Medium Current Visit: Yes Problem Details: Currently under therapy normal TSH on 07/14/2020. (10) Mixed anxiety depressive disorder SNOMED Code(s): 314794807 ICD Code: F41.8 - OTHER SPECIFIED ANXIETY DISORDERS Status: Chronic Priority: Medium Current Visit: Yes Problem Details: Stable by history. Continue to observe closely by her regular providers. Note chronic narcotic use. (11) Osteoarthritis SNOMED Code(s): 086520235 ICD Code: M19.90 - UNSPECIFIED OSTEOARTHRITIS, UNSPECIFIED SITE Status: Chronic Priority: Medium Current Visit: No Problem Details: Stable by history. Note history of SLE with current Plaquenil therapy. Qualifiers: Osteoarthritis location: multiple joints Osteoarthritis type: primary Qualified Code(s): M89.49 - Other hypertrophic osteoarthropathy, multiple sites (12) Peptic reflux disease SNOMED Code(s): 175452774 ICD Code: K21.9 - GASTRO-ESOPHAGEAL REFLUX DISEASE WITHOUT ESOPHAGITIS Status: Chronic Priority: Medium Current Visit: Yes Problem Details: Stable by history with current medical therapy. No evidence of acute GI bleed. IV Pepcid given as GI prophylaxis. Note previous nonspecific anemia with blood transfusions 2 required in December and January 2018 as above. Continue to observe closely by regular providers. Mild persistent anemia however improved hemoglobin of 11.0 on 07/15 despite subcu Lovenox therapy as above. Note negative Hemoccult. (13) Renal insufficiency SNOMED Code(s): 078132719, 185784514 ICD Code: N28.9 - DISORDER OF KIDNEY AND URETER, UNSPECIFIED Status: Chronic Priority: Medium Current Visit: Yes Problem Details: As above (14) Hypoalbuminemia SNOMED Code(s): 713985944 ICD Code: E88.09 - OTH DISORDERS OF PLASMA-PROTEIN METABOLISM, NEC Status: Acute Priority: Medium Current Visit: Yes Onset Date: 12/25/17 Problem Details: Consider high protein Glucerna supplements as snacks with history of chronic hypoalbuminemia. (15) Venous stasis ulcers Status: Acute Priority: Medium Current Visit: Yes Onset Date: 12/25/17 Problem Details: Chronic/unchanged/bilateral lower legs Qualifiers: Venous stasis ulcer site: ankle Varicose vein presence: with varicose veins Laterality: left Non-pressure ulcer stage: limited to breakdown of skin Qualified Code(s): I83.023 - Varicose veins of left lower extremity with ulcer of ankle; L97.321 - Non-pressure chronic ulcer of left ankle limited to breakdown of skin (16) Hypocalcemia SNOMED Code(s): 5733639 ICD Code: E83.51 - HYPOCALCEMIA Status: Acute Priority: Medium Current Visit: Yes Onset Date: 07/14/20 Problem Details: Note 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 Observe for now. (17) Hyperuricemia SNOMED Code(s): 64705336 ICD Code: E79.0 - HYPERURICEMIA W/O SIGNS OF INFLAM ARTHRIT AND TOPHACEOUS DIS Status: Acute Priority: Medium Current Visit: Yes Onset Date: 07/14/20 Problem Details: Newly diagnosed. No gout type symptoms. Continue to observe closely secondary to her IV Lasix therapy. Her arthritis is otherwise stable. - Patient Summary/Data Hospital Course: Patient initially treated for suspected CHF. IV Lasix and supplemental O2 given. Comfort care. Initially not interested in transfer to [place]. Patient felt better. Noted to have normal series of Troponins but did develop elevated CK and CKMB over last few days. Denied chest pain during stay. WBC normal. Afebrile. Able to obtain CT of chest on 07/16. Noted to have elevated DDimer during ER eval but CT down for repair until 07/16/unable to formally rule out PE. No PE noted but Radiology did see changes right upper lung suggestive of pneumonia. Also some small air vessel disease noted. Patient started on Doxy orally and Combivent. She is allergic to many antibiotics and this was felt to be best choice at that time and it had been thought that she might be able to discharge back to care home today. She also developed hypotension yesterday/asymptomatic. Thought to be due to recently started Imdur and the increased Lasix. These were held along with patient's other antihypertensives. BP has been improving. Patient does have history of nonhealing chronic wound right lateral groin fold. She states that it was thought to be a lump from an ingrown hair around 6 months ago and someone tried to remove the hair. A deep hole was left after the procedure and this has never healed. She also has two chronic leg ulcers. Over the course of patient's admission the groin sore has become larger and is now draining much larger amounts of purulent material. Again no fevers/chills/elevated WBC. This was cultured and today came back + for MRSA. Call placed to [place] and patient discussed with from [place]. She recommended continuing the Doxy as it could be able to cover both the pneumonia and based on culture results, the MRSA. She also recommended that pt be seen by allergy to undergo evaluation for actual true antibiotic allergies as she is running out of options to take based on her growing list of allergies. She also said that patient needs to see surgery for debridement of the wound and to check for pockets that need to be addressed/drained. crew caller surgeon at [place] advised that a CT study to look for any masses/associated bone infection be performed before formal surgical consult. A CT was performed but was limited per Radiology due to interference from patient's hip replacement hardware. Radiology recommended US which is not available until Sunday. All of this was discussed with patient. Pt gave OK to call [facility] (decided she did not want to go to [place]). Patient then discussed with /hospitalist. Plans for transfer made so that she can receive appropriate US study and surgical consult/debridement to more definitively address the worsening wound/drainage. - Discharge Plan *PRESCRIPTION DRUG MONITORING PROGRAM REVIEWED*: Not Applicable *COPY OF PRESCRIPTION DRUG MONITORING REPORT IN PATIENT ADRIAN: Not Applicable Home Medications: Home Meds Acetaminophen [Tylenol] 2 tab PO BID PRN 07/14/20 [History] Aspirin [Aspirin EC] 1 tab PO DAILY 07/14/20 [History] Biotin 1 tab PO DAILY 07/14/20 [History] Carboxymethylcellulose Sodium [Artificial Tears] 1 drop OP Q8HR PRN 07/14/20 [History] Clopidogrel Bisulfate [Plavix] 1 tab PO DAILY 07/14/20 [History] Fluticasone Propionate [Flonase] 1 spray NASBOTH DAILY 07/14/20 [History] Furosemide [Lasix] 20 mg PO DAILY 07/14/20 [History] Gabapentin [Neurontin] 600 mg PO TID 07/14/20 [History] Gel Base No.41 [Hydrogel] 1 applic TOP Q48H 07/14/20 [History] Hydrocodone/Acetaminophen [[place] 5-325 Tablet] 1 tab PO BID 07/14/20 [History] Hydrocodone/Acetaminophen [[place] 5-325 Tablet] 1 tab PO DAILY PRN 07/14/20 [History] Hydrocortisone [Hydrocortisone 1% Oint] 1 applic TOP BID PRN 07/14/20 [History] Hydroxychloroquine Sulfate 1 tab PO DAILY 07/14/20 [History] Levothyroxine Sodium [Levothyroxine] 1 tab PO DAILY 07/14/20 [History] Lidocaine 4% [LMX 4] 1 applic TOP TID 07/14/20 [History] Loperamide [Imodium AD] 2 tab PO DAILY PRN 07/14/20 [History] Loratadine [Claritin] 1 tab PO DAILY 07/14/20 [History] Mag Hydrox/Aluminum Hyd/Simeth [Mylanta Maximum Strength Liq] 30 ml PO DAILY PRN 07/14/20 [History] Melatonin 2 tab PO BEDTIME 07/14/20 [History] Metoprolol Succinate [Toprol XL 50mg] 1 tab PO DAILY 07/14/20 [History] Mineral Oil/Petrolatum [Aquaphor Healing Oint] 1 applic TOP DAILY 07/14/20 [History] Multivitamin 1 tab PO DAILY 07/14/20 [History] Ondansetron [Zofran] 1 tab PO Q8HR PRN 07/14/20 [History] Pantoprazole Sodium [Protonix] 1 tab PO DAILY 07/14/20 [History] Pentoxifylline 1 tab PO TID 07/14/20 [History] Saccharomyces Boulardii [Florastor] 1 tab PO BEDTIME 07/14/20 [History] Sertraline [Zoloft] 1 tab PO DAILY 07/14/20 [History] Silver [Acticoat 7] 1 pad TOP Q48H 07/14/20 [History] Triamcinolone Acetonide [Triamcinolone Acetonide 0.1% Crm] 1 applic TOP Q12HR PRN 07/14/20 [History] Vit A/Vit C/Vit E/Zinc/Copper [Preservision] 1 cap PO DAILY 07/14/20 [History] atorvaSTATin Calcium [Atorvastatin Calcium] 1 tab PO BEDTIME 07/14/20 [History] guaiFENesin [Mucinex] 1 tab PO Q12HR PRN 07/14/20 [History] hydrOXYzine HCL [Hydroxyzine HCl] 0.5 tab PO BEDTIME 07/14/20 [History] hydrOXYzine HCL [Hydroxyzine HCl] 12.5 mg PO Q8HR PRN 07/14/20 [History] Forms: ED Department Discharge Referrals: Telma Sharpe [facility] [Primary Care Provider] - - Discharge Summary/Plan Comment DC Time >30 min.: No - General Info Date of Service: 07/17/20 Admission Dx/Problem (Free Text: Evaluated for complaint of chills/weakness/SOB 1. Pneumonia 2. MRSA infection 3. Coronary artery disease/elevated CKMB/CK Subjective Update: Pt feeling much better. Stronger. No fevers/pain complaints Functional Status: Reports: Pain Controlled, Tolerating Diet, Ambulating. Denies: New Symptoms - Review of Systems General: Denies: Fever, Malaise, Chills HEENT: Denies: Headaches, Sinus Congestion, Sore Throat, Rhinitis Pulmonary: Reports: Shortness of Breath. Denies: Pleuritic Chest Pain, Cough, Sputum, Hemoptysis, Wheezing Cardiovascular: Reports: Dyspnea on Exertion (improved). Denies: Chest Pain, Palpitations, Lightheadedness Gastrointestinal: Denies: Abdominal Pain, Diarrhea, Melena, Nausea, Vomiting Genitourinary: Denies: Dysuria, Hematuria Musculoskeletal: Reports: Other (no acute changes from baseline) Skin: Reports: Other (bilateral lower leg ulcers, draining wound right lateral inguinal fold) Neurological: Reports: Difficulty Walking (chronic). Denies: Confusion, Dizziness, Headache, Numbness, Change in Speech Psychiatric: Reports: No Symptoms - Patient Data Vitals - Most Recent: Last Vital Signs Temp 36.3 C 07/17/20 16:00 Pulse 96 07/17/20 16:00 Resp 18 07/17/20 16:00 BP 128/51 L 07/17/20 16:00 Pulse Ox 93 L 07/17/20 16:00 Weight - Most Recent: 85.684 kg I&O - Last 24 hours: Intake & Output 07/17/20 07/17/20 07/17/20 06:59 14:59 22:59 Intake Total 200 600 Output Total 300 250 Balance -100 600 -250 Lab Results - Last 24 hrs: Laboratory Results - last 24 hr 07/16/20 07/17/20 07/17/20 Range/Units 15:04 08:15 08:15 WBC 4.8 (4.0-10.2) K/uL RBC 4.33 (3.77-5.09) M/uL Hgb 11.4 L (11.7-15.5) g/dL Hct 38.4 (34.0-46.0) % MCV 88.7 (84.0-98.0) fL MCH 26.3 L (28.2-33.3) pg MCHC 29.7 L (31.7-36.0) g/dL RDW 15.9 H (11.2-14.1) % Plt Count 69 L D (150-350) K/uL Neut % (Auto) 46.4 (45.0-80.0) % Lymph % (Auto) 30.7 (10.0-50.0) % [place] % (Auto) 12.4 (2.0-14.0) % Eos % (Auto) 9.9 H (0.0-5.0) % Baso % (Auto) 0.6 (0.0-2.0) % Neut # (Auto) 2.20 (1.40-7.00) K/uL Lymph # (Auto) 1.46 (0.50-3.50) K/uL [place] # (Auto) 0.59 (0.00-1.00) K/uL Eos # (Auto) 0.47 (0.00-0.50) K/uL Baso # (Auto) 0.03 (0.00-0.20) K/uL Sodium 138 (136-145) mmol/L Potassium 4.5 (3.5-5.1) mmol/L Chloride 102 (98-107) mmol/L Carbon Dioxide 31.3 (21.0-32.0) mmol/L BUN 22 H (7-18) mg/dL Creatinine 1.10 (0.51-1.17) mg/dL Est Cr Clr Drug Dosing 34.64 mL/min Estimated GFR (MDRD) 48 mL/min Glucose 96 (74-106) mg/dL Calcium 8.8 (8.5-10.1) mg/dL Magnesium 2.1 (1.8-2.4) mg/dL Specimen Type Urinblad Urine Color Yellow Urine Appearance Clear Urine pH 5.5 (5.0-9.0) Ur Specific [place] 1.010 (1.005-1.030) Urine Protein Negative (NEGATIVE) mg/dL Urine Glucose (UA) Negative (NEGATIVE) mg/dL Urine Ketones Negative (NEGATIVE) mg/dL Urine Occult Blood Small H (NEGATIVE) Urine Nitrite Negative (NEGATIVE) Urine Bilirubin Negative (NEGATIVE) Urine Urobilinogen 0.2 (0.2-1.0) E.U./dL Ur Leukocyte Esterase Small H (NEGATIVE) Urine RBC 0-5 /HPF Urine WBC 30-40 H /HPF Ur Epithelial Cells Rare /LPF Urine Bacteria Rare (NONE TO FEW) /HPF Urine Yeast Few H (NEGATIVE) /HPF TRI Results - Last 24 hrs: Microbiology 07/14/20 08:35 Aerobic Blood Culture - Preliminary Blood - Venous - Lab Draw NO GROWTH AFTER 3 DAYS Anaerobic Blood Culture - Preliminary NO GROWTH AFTER 3 DAYS 07/14/20 08:30 Aerobic Blood Culture - Preliminary Blood - Venous NO GROWTH AFTER 3 DAYS Anaerobic Blood Culture - Preliminary NO GROWTH AFTER 3 DAYS 07/15/20 12:20 Gram Stain - Final Leg, Right Wound Culture - Final Staphylococcus Aureus Med Orders - Current: Current Medications Acetaminophen (Tylenol) 650 mg PO Q4H PRN PRN Reason: Pain Last Admin: 07/16/20 03:03 Dose: 650 mg Documented by: Hydrocodone Bitart/Acetaminophen ([place] 325-5 Mg) 1 tab PO BID [facility] Last Admin: 07/17/20 17:09 Dose: 1 tab Documented by: Hydrocodone Bitart/Acetaminophen ([place] 325-5 Mg) 1 tab PO DAILY PRN PRN Reason: Pain Last Admin: 07/17/20 01:14 Dose: 1 tab Documented by: Albuterol/Ipratropium (Combivent Respimat) 0 gm INH QID [facility] Last Admin: 07/17/20 17:08 Dose: 1 puff Documented by: Artificial Tears (Liquitears 1.4% Ophth Soln) 0 ml EYEBOTH Q8HR PRN PRN Reason: Dry Eyes Aspirin (Halfprin) 81 mg PO DAILY [facility] Last Admin: 07/17/20 08:56 Dose: 81 mg Documented by: Atorvastatin Calcium (Lipitor) 40 mg PO BEDTIME [facility] Last Admin: 07/16/20 19:41 Dose: 40 mg Documented by: Doxycycline Monohydrate (Doxycycline Monohydrate) 100 mg PO BID [facility] Last Admin: 07/17/20 17:08 Dose: 100 mg Documented by: Enoxaparin Sodium (Lovenox) 80 mg SUBCUT Q24H [facility] Last Admin: 07/17/20 13:29 Dose: 80 mg Documented by: Famotidine (Pepcid) 20 mg IVPUSH DAILY [facility] Last Admin: 07/17/20 08:58 Dose: 20 mg Documented by: Fluticasone Propionate (Flonase) 0 gm NASBOTH DAILY [facility] Last Admin: 07/17/20 09:01 Dose: 1 spray Documented by: Furosemide (Lasix) 40 mg IVPUSH BID [facility] Last Admin: 07/17/20 17:11 Dose: Not Given Documented by: Gabapentin (Neurontin) 600 mg PO TID [facility] Last Admin: 07/17/20 17:08 Dose: 600 mg Documented by: Hydroxychloroquine Sulfate (Plaquenil) 200 mg PO DAILY [facility] Last Admin: 07/17/20 08:56 Dose: 200 mg Documented by: Hydroxyzine HCl (Atarax) 12.5 mg PO BEDTIME [facility] Last Admin: 07/16/20 19:41 Dose: 12.5 mg Documented by: Hydroxyzine HCl (Atarax) 12.5 mg PO Q8HR PRN PRN Reason: Itching Last Admin: 07/16/20 04:37 Dose: 12.5 mg Documented by: Lactobacillus Rhamnosus (Culturelle) 1 cap PO BEDTIME [facility] Last Admin: 07/16/20 19:41 Dose: 1 cap Documented by: Levothyroxine Sodium (Synthroid) 50 mcg PO DAILY [facility] Last Admin: 07/17/20 08:58 Dose: 50 mcg Documented by: Loratadine (Claritin) 10 mg PO DAILY [facility] Last Admin: 07/17/20 08:57 Dose: 10 mg Documented by: Melatonin (Melatonin) 6 mg PO BEDTIME [facility] Last Admin: 07/16/20 19:41 Dose: 6 mg Documented by: Metoprolol Succinate (Toprol Xl) 50 mg PO DAILY [facility] Last Admin: 07/17/20 09:09 Dose: Not Given Documented by: Multivitamins/Minerals/Vitamin C (Tab-A-Gerardo) 1 tab PO DAILY [facility] Last Admin: 07/17/20 08:55 Dose: 1 tab Documented by: Nystatin (Nystop) 0 gm TOP BID [facility] Last Admin: 07/17/20 17:15 Dose: 1 applic Documented by: Ondansetron HCl (Zofran Odt) 4 mg PO Q8HR PRN PRN Reason: Nausea Last Admin: 07/14/20 18:50 Dose: 4 mg Documented by: Pantoprazole Sodium (Protonix Iv) 40 mg IVPUSH Q12H [facility] Last Admin: 07/17/20 08:58 Dose: 40 mg Documented by: Pentoxifylline (Trental) 400 mg PO TID [facility] Last Admin: 07/17/20 17:09 Dose: 400 mg Documented by: Potassium Chloride (Klor-Con M20) 20 meq PO BID [facility] Last Admin: 07/17/20 17:08 Dose: 20 meq Documented by: Sertraline HCl (Zoloft) 25 mg PO DAILY [facility] Last Admin: 07/17/20 08:56 Dose: 25 mg Documented by: Sodium Chloride (Saline Flush) 10 ml FLUSH ASDIRECTED PRN PRN Reason: Keep Vein Open Last Admin: 07/17/20 09:10 Dose: 10 ml Documented by: Sodium Chloride (Saline Flush) 10 ml FLUSH ASDIRECTED PRN PRN Reason: Keep Vein Open Last Admin: 07/17/20 09:10 Dose: 10 ml Documented by: Sodium Chloride (Saline Flush) 10 ml FLUSH Q12HR PRN PRN Reason: Keep Vein Open Last Admin: 07/16/20 08:03 Dose: 10 ml Documented by: Vit C/Vit E/Zinc/Copper/Lutein (Ocuvite Lutein) 1 each PO DAILY [facility] Last Admin: 07/17/20 08:57 Dose: 1 each Documented by: Discontinued Medications Famotidine (Pepcid) 40 mg IVPUSH ONETIME ONE Stop: 07/14/20 08:40 Last Admin: 07/14/20 08:48 Dose: 40 mg Documented by: Furosemide (Lasix) 60 mg IVPUSH NOW ONE Stop: 07/14/20 09:32 Last Admin: 07/14/20 10:08 Dose: 60 mg Documented by: Furosemide (Lasix) 40 mg IVPUSH Q8H [facility] Last Admin: 07/15/20 00:59 Dose: 40 mg Documented by: Sodium Chloride (Normal Saline) 250 mls @ 125 mls/hr IV ONETIME ONE Stop: 07/16/20 12:59 Last Admin: 07/16/20 12:44 Dose: 125 mls/hr Documented by: Azithromycin 500 mg/ Sodium (Chloride) 250 mls @ 250 mls/hr IV Q24H [facility] Last Admin: 07/16/20 18:30 Dose: Not Given Documented by: Iopamidol (Isovue-370 (76%)) 100 ml IVPUSH ONETIME ONE Stop: 07/16/20 10:01 Last Admin: 07/16/20 12:53 Dose: 100 ml Documented by: Isosorbide Mononitrate (Imdur) 15 mg PO BEDTIME [facility] Last Admin: 07/15/20 19:17 Dose: 15 mg Documented by: Pantoprazole Sodium (Protonix Iv) 40 mg IVPUSH Q12H [facility] Last Admin: 07/15/20 12:03 Dose: 40 mg Documented by: Potassium Chloride (Klor-Con M20) 20 meq PO TID [facility] Last Admin: 07/15/20 10:18 Dose: 20 meq Documented by: - Exam General: Reports: Alert, Oriented, Cooperative, No Acute Distress HEENT: Reports: Pupils Equal, Pupils Reactive, EOMI, Mucous Membr. Moist/[place] Neck: Reports: Supple Lungs: Reports: Clear to Auscultation, Normal Respiratory Effort, Rales (barrett nt/bases) Cardiovascular: Reports: Regular Rate, Regular Rhythm GI/Abdominal Exam: Soft, Non-Tender, No Distention (Female) Exam: Deferred Rectal (Female) Exam: Deferred Back Exam: Denies: CVA Tenderness (L), CVA Tenderness (R), Muscle Spasm, Paraspinal Tenderness, Vertebral Tenderness Extremities: Normal Capillary Refill Skin: Reports: Other (draining wound right lateral inguinal fold, bilat lower leg ulcers) Wound/Incisions: Reports: Drainage (groin) Neurological: Reports: No New Focal Deficit Psy/Mental Status: Reports: Alert, Normal Affect, Normal Mood
== END 2020-07-17 18:30 | DRG 291 ==
LOC: LL.ED 08:12 → UNDOADMIN 10:34 → LL.MS 10:34
PROVIDERS: ADMIT Family Medicine; ATTEND Family Medicine
DX: I13.0 Hypertensive heart and chronic kidney disease with heart failure and stage 1 through stage 4 chronic kidney disease, or unspecified chronic kidney disease (principal); J18.9 Pneumonia, unspecified organism; L97.321 Non-pressure chronic ulcer of left ankle limited to breakdown of skin; J44.0 Chronic obstructive pulmonary disease with (acute) lower respiratory infection; I50.9 Heart failure, unspecified; L98.499 Non-pressure chronic ulcer of skin of other sites with unspecified severity; Z51.5 Encounter for palliative care; I25.10 Atherosclerotic heart disease of native coronary artery without angina pectoris; R79.89 Other specified abnormal findings of blood chemistry; N18.31 Chronic kidney disease, stage 3a; D63.1 Anemia in chronic kidney disease; E03.9 Hypothyroidism, unspecified; F41.8 Other specified anxiety disorders; M89.49 Other hypertrophic osteoarthropathy, multiple sites; K21.9 Gastro-esophageal reflux disease without esophagitis; E88.09 Other disorders of plasma-protein metabolism, not elsewhere classified; Z20.828 Contact with and (suspected) exposure to other viral communicable diseases; I83.023 Varicose veins of left lower extremity with ulcer of ankle; E83.51 Hypocalcemia; Z79.02 Long term (current) use of antithrombotics/antiplatelets; E79.0 Hyperuricemia without signs of inflammatory arthritis and tophaceous disease; J30.9 Allergic rhinitis, unspecified; H54.7 Unspecified visual loss; E78.00 Pure hypercholesterolemia, unspecified; I73.9 Peripheral vascular disease, unspecified; M19.90 Unspecified osteoarthritis, unspecified site; M81.0 Age-related osteoporosis without current pathological fracture; M54.2 Cervicalgia; M54.5 Low back pain; G89.29 Other chronic pain; F41.9 Anxiety disorder, unspecified; G47.00 Insomnia, unspecified; E55.9 Vitamin D deficiency, unspecified; D64.9 Anemia, unspecified; Z88.1 Allergy status to other antibiotic agents; Z88.2 Allergy status to sulfonamides; Z91.09 Other allergy status, other than to drugs and biological substances; Z88.8 Allergy status to other drugs, medicaments and biological substances; Z79.82 Long term (current) use of aspirin; Z79.899 Other long term (current) drug therapy; Z79.890 Hormone replacement therapy; I25.2 Old myocardial infarction; Z86.718 Personal history of other venous thrombosis and embolism; Z86.73 Personal history of transient ischemic attack (TIA), and cerebral infarction without residual deficits; Z98.890 Other specified postprocedural states; Z90.49 Acquired absence of other specified parts of digestive tract; Z87.891 Personal history of nicotine dependence; Z88.0 Allergy status to penicillin
CPT/HCPCS: 36415; 71046; 71275; 72192; 74022; 80048; 80053; 80061; 81001; 82150; 82272; 82550; 82553; 83036; 83605; 83690; 83735; 83880; 84443; 84484; 84550; 85025; 85379; 85610; 85730; 87040; 87070; 87077; 87186; 87205; 87338; 87641; 87804; 93005; 93010; 93970; 94640; 96374; 96375; 99284; 99285-25; A9270-GY; C9113; J1650; J1940; J3490; J7050; Q9967; U0002

== ENCOUNTER 2020-11-09 14:53 | Emergency (ER) | payer MEDICARE, BC, MEDICAID ==
[2020-11-09] MEDS ORDERED: Ciprofloxacin 500 MG Tab PO ONE (15:12)
[2020-11-09] MEDS: Levofloxacin 500 MG Tab PO ONE (15:39)
[2020-11-09] MEDS: methylPREDNISolone Sodium Succinate 125 MG/2 ML SDV IM ONE (15:40)
[2020-11-09 15:54] VITALS: BP 136/63; PULSE 79
--- NOTE | 2020-11-09 16:12 | EDM.PDOC ---
ED HPI GENERAL MEDICAL PROBLEM - General Chief Complaint: Respiratory Problem Stated Complaint: Shortness of Breath Time Seen by Provider: 11/09/20 15:07 Source of Information: Reports: Patient History Limitations: Reports: No Limitations - History of Present Illness INITIAL COMMENTS - FREE TEXT/NARRATIVE: Pt seen in clinic for SOB for past several days No fever No chest pain Occasional cough Is on supplemental oxygen 2 L Usually does not use oxygen Onset: Gradual Duration: Day(s):, Intermittent - Related Data Allergies Allergy/AdvReac Type Severity Reaction Status Date / Time cefazolin Allergy Hives Verified 11/09/20 14:58 cephalexin [Cephalexin] Allergy Hives Verified 11/09/20 14:58 clindamycin Allergy Rash Verified 11/09/20 14:58 lincomycin HCl Allergy Rash Verified 11/09/20 14:58 [From Lincocin] Penicillins Allergy Hives Verified 11/09/20 14:58 sulfamethoxazole Allergy Hives Verified 11/09/20 14:58 [From Bactrim] trimethoprim [From Bactrim] Allergy Hives Verified 11/09/20 14:58 vancomycin Allergy Rash Verified 11/09/20 14:58 adhesive tape Allergy Rash Uncoded 11/09/20 14:58 Home Meds: Home Meds Acetaminophen [Tylenol] 2 tab PO BID PRN 07/14/20 [History] Aspirin [Aspirin EC] 1 tab PO DAILY 07/14/20 [History] Biotin 1 tab PO DAILY 07/14/20 [History] Carboxymethylcellulose Sodium [Artificial Tears] 1 drop OP Q8HR PRN 07/14/20 [History] Clopidogrel Bisulfate [Plavix] 1 tab PO DAILY 07/14/20 [History] Fluticasone Propionate [Flonase] 1 spray NASBOTH DAILY 07/14/20 [History] Furosemide [Lasix] 20 mg PO DAILY 07/14/20 [History] Gabapentin [Neurontin] 600 mg PO TID 07/14/20 [History] Gel Base No.41 [Hydrogel] 1 applic TOP Q48H 07/14/20 [History] Hydrocodone/Acetaminophen [[place] 5-325 Tablet] 1 tab PO BID 07/14/20 [History] Hydrocodone/Acetaminophen [[place] 5-325 Tablet] 1 tab PO DAILY PRN 07/14/20 [History] Hydrocortisone [Hydrocortisone 1% Oint] 1 applic TOP BID PRN 07/14/20 [History] Hydroxychloroquine Sulfate 1 tab PO DAILY 07/14/20 [History] Levothyroxine Sodium [Levothyroxine] 1 tab PO DAILY 07/14/20 [History] Lidocaine 4% [LMX 4] 1 applic TOP TID 07/14/20 [History] Loperamide [Imodium AD] 2 tab PO DAILY PRN 07/14/20 [History] Loratadine [Claritin] 1 tab PO DAILY 07/14/20 [History] Mag Hydrox/Aluminum Hyd/Simeth [Mylanta Maximum Strength Liq] 30 ml PO DAILY PRN 07/14/20 [History] Melatonin 2 tab PO BEDTIME 07/14/20 [History] Metoprolol Succinate [Toprol XL 50mg] 1 tab PO DAILY 07/14/20 [History] Mineral Oil/Petrolatum [Aquaphor Healing Oint] 1 applic TOP DAILY 07/14/20 [History] Multivitamin 1 tab PO DAILY 07/14/20 [History] Ondansetron [Zofran] 1 tab PO Q8HR PRN 07/14/20 [History] Pantoprazole Sodium [Protonix] 1 tab PO DAILY 07/14/20 [History] Pentoxifylline 1 tab PO TID 07/14/20 [History] Saccharomyces Boulardii [Florastor] 1 tab PO BEDTIME 07/14/20 [History] Sertraline [Zoloft] 1 tab PO DAILY 07/14/20 [History] Silver [Acticoat 7] 1 pad TOP Q48H 07/14/20 [History] Triamcinolone Acetonide [Triamcinolone Acetonide 0.1% Crm] 1 applic TOP Q12HR PRN 07/14/20 [History] Vit A/Vit C/Vit E/Zinc/Copper [Preservision] 1 cap PO DAILY 07/14/20 [History] atorvaSTATin Calcium [Atorvastatin Calcium] 1 tab PO BEDTIME 07/14/20 [History] guaiFENesin [Mucinex] 1 tab PO Q12HR PRN 07/14/20 [History] hydrOXYzine HCL [Hydroxyzine HCl] 0.5 tab PO BEDTIME 07/14/20 [History] hydrOXYzine HCL [Hydroxyzine HCl] 12.5 mg PO Q8HR PRN 07/14/20 [History] Past Medical History HEENT History: Reports: Allergic Rhinitis, Impaired Vision, Macular Degeneration, Other (See Below) Other HEENT History: Patient wears glasses. Cardiovascular History: Reports: Arrhythmia, Blood Clots/VTE/DVT, CAD, Cardiomyopathy, Heart Failure, Heart Murmur, High Cholesterol, Hypertension, MN, PVD, Other (See Below) Other Cardiovascular History: MN in 1990. DVT of the left distal femoral vein on 02/09/16. Peripheral vascular disease with secondary refractory bilateral lower extremities ulcers as below. Varicose veins. Borderline incomplete right bundle branch block. Mild mitral and tricuspid valve insufficiency by echocardiogram with additional grade 1 diastolic dysfunction. Respiratory History: Reports: Bronchitis, Recurrent, COPD, Intubation, Previous, Pneumonia, Recurrent, Pulmonary Fibrosis, Other (See Below) Other Respiratory History: Nocturnal hypoxia with no current oxygen supplementation. Chronic left hemidiaphragm elevation. Gastrointestinal History: Reports: Cholelithiasis, Diverticulosis, Fecal Incontinence, GERD, Helicobacter Pylori, Other (See Below) Other Gastrointestinal History: History of colitis of unknown etiology. 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 Full term without complications during pregnancies or deliveries, however note of last at one day of age as below. Musculoskeletal History: Reports: Arthritis, Back Pain, Chronic, Fracture, Neck Pain, Chronic, Osteoarthritis, Osteoporosis, SLE, Other (See Below) Other Musculoskeletal History: Multiple thoracic vertebral body compression fracture secondary to her osteoporosis. Moderate scoliosis. SLE with recurrent bilateral leg ulcers. Neurological History: Reports: CVA, Headaches, Chronic, TIA, Other (See Below) Other Neuro History: Borderline CVA versus TIA on 02/03/[address] scan of the head with requested MRIs of the head and neck not conducted at [facility] at that time per their EMR records as below. Cerebral microvascular disease by CT scan. Psychiatric History: Reports: Addiction, Anxiety, Dementia, Psych Hospitaliza tion(s), Other (See Below) Other Psychiatric History: Chronic insomnia. Previous chronic use of tramadol and currently narcotics secondary to chronic pain syndrome. Endocrine/Metabolic History: Reports: Hypothyroidism, Obesity/BMI 30+, Osteopenia, Osteoporosis, Vitamin D Deficiency, Other (See Below) Other Endocrine/Metabolic History: Hyperglycemia. Hyperaldosteronism with hyperphosphatemia. Hypoalbuminemia. Hypokalemia. Hematologic History: Reports: Anemia, Blood Transfusion(s), Other (See Below) Other Hematologic History: Anemia of unknown etiology however possibly secondary to her chronic renal insufficiency, with no apparent previous workup; previous blood transfusions on 01/08/18 and 02/14/18. Immunologic History: Reports: Immunosuppression, SLE, Other (See Below) Other Immunologic History: Current Plaquenil therapy Oncologic (Cancer) History: Reports: None Dermatologic History: Reports: Cellulitis, Chronic Cellulitis, Venous Stasis Dermatitis, Other (See Below) Other Dermatologic History: Chronic bilateral leg ulcers secondary to SLE and peripheral vascular disease as above with recurrent cellulitis, including previous MRSA. - Infectious Disease History Infectious Disease History: Reports: MRSA, Other (See Below) Other Infectious Disease History: Patient uncertain about other childhood diseases, etc. - Past Surgical History Head Surgeries/Procedures: Reports: None HEENT Surgical History: Reports: Oral Surgery, Other (See Below) Other HEENT Surgeries/Procedures: Complete teeth extraction with current complete dentures. Cardiovascular Surgical History: Reports: None Respiratory Surgical History: Reports: None GI Surgical History: Reports: Appendectomy, Cholecystectomy, Colonoscopy, EGD, Other (See Below) Other GI Surgeries/Procedures: Appendectomy in the 1940s. Laparoscopic cholecystectomy. EGD on 06/01/11. Colonoscopy in the . Female Surgical History: Reports: None Endocrine Surgical History: Reports: None Neurological Surgical History: Reports: None Musculoskeletal Surgical History: Reports: Arthroscopic Procedure, Joint Replacement, Knee Replacement, Other (See Below) Other Musculoskeletal Surgeries/Procedures:: Right shoulder arthroscopic surgery including flushing procedure on 12/27/17 secondary to septic joint. Bilateral hip TEP. Bilateral Total knee arthroplasty on 03/21/04 and 07/18/04. Oncologic Surgical History: Reports: None Dermatological Surgical History: Reports: Plastic Surgical Reconstruction/Repair, Skin Graft, Other (See Below) - Past Imaging History Past Imaging History: Reports: ANALY Screen (Normal on 06/25/12), Angiography (Aortogram with bilateral lower extremity angiograms on 03/01/18.), Cardiac Echo (Transesophageal echocardiogram on 01/02/18 with ejection fraction of 6065 percent. Previous echocardiogram on 02/04/14 with ejection fraction of 6570 percent with otherwise findings as above.), Carotid US (02/04/14), CAT Scan (CT of the brain on 02/03/14), DEXA Scan (11/09/10), Mammogram (Last mammogram on 12/19/16), MRI (Left tibia and fibula on 12/28/17.), Ultrasound (Left breast ultrasound on 09/26/12), Venous Doppler (Positive left leg venous Doppler study on 02/09/16 with results as above and subsequent multiple follow-up evaluations with last evaluation on 05/22/17 with no report available.), Other (See Below) (Bilateral lower extremity arterial Doppler evaluation on 10/02/17.) Social & Family History - Family History HEENT: Reports: None Cardiac: Reports: Bypass, CAD, MN, PVD/COD, Other (See Below) Other Cardiac Family History: Fatal MN in father at age 77. Brother with MN and four-vessel CABG in his 70s. Brothers 2 with peripheral vascular disease. 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 Respiratory: Reports: COPD, Other (See Below) Other Respiratory Family Hisory: Brother with COPD GI: Reports: None : Reports: Diabetic Nephropathy, Renal Disease/Insufficiency, Other (See Below) Other Family History: Mother with fatal diabetic nephropathy at age 68. OBGYN: Reports: None Musculoskeletal: Reports: Arthritis, RA, Other (See Below) Other Musculoskeletal Family History: Nephew from muscular dystrophy. Brother with rheumatoid arthritis. Neurological: Reports: None Psychiatric: Reports: None Endocrine/Metabolic: Reports: Diabetes, type II, IDDM, Other (See Below) Other Endocrine/Metabolic Family History: Diabetes mellitus in brother. Mother with IDDM. Hematologic: Reports: None Immunologic: Reports: None Dermatologic: Reports: None Oncologic: Reports: Prostate, Other (See Below) Other Oncologic Family History: Brother with prostate cancer. Maternal grandmother and maternal grandfather from unknown type of cancers. 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) ED ROS GENERAL - Review of Systems Review Of Systems: See Below HEENT: Reports: No Symptoms Respiratory: Reports: Shortness of Breath Cardiovascular: Reports: No Symptoms GI/Abdominal: Reports: No Symptoms Musculoskeletal: Reports: No Symptoms Neurological: Reports: No Symptoms ED EXAM, GENERAL - Physical Exam Exam: See Below Exam Limited By: No Limitations General Appearance: Alert, WD/WN, No Apparent Distress Neck: Supple Respiratory/Chest: Decreased Breath Sounds Cardiovascular: Regular Rate, Rhythm GI/Abdominal: Soft, Non-Tender Extremities: Pedal Edema Neurological: Alert, Oriented, No Motor/Sensory Deficits Psychiatric: Normal Affect, Normal Mood Course - Vital Signs Last Recorded V/S: Last Vital Signs Temp 98.1 F 11/09/20 14:55 Pulse 79 11/09/20 15:30 Resp 16 11/09/20 15:30 BP 136/63 11/09/20 15:30 Pulse Ox 99 11/09/20 15:30 - Orders/Labs/Meds Meds: Medications Discontinued Medications Generic Name Dose Route Start Last Admin Trade Name Uriel PRN Reason Stop Dose Admin Ciprofloxacin 500 mg 11/09/20 15:12 Ciprofloxacin 500 Mg Tab PO 11/09/20 15:13 ONETIME ONE Levofloxacin 500 mg 11/09/20 15:29 11/09/20 15:39 Levofloxacin 500 Mg Tab PO 11/09/20 15:30 500 mg ONETIME ONE Administration Methylprednisolone Sodium Succinate 125 mg 11/09/20 15:15 11/09/20 15:40 Methylprednisolone Sodium Succinate 125 Mg/2 Ml Sdv IM 11/09/20 15:16 125 mg ONETIME ONE Administration - Re-Assessments/Exams Free Text/Narrative Re-Assessment/Exam: 11/09/20 16:11 See lab CXR per radiologist no acute findings Pt given Levaquin 500 mg PO and Solu-medrol 125 mg IM in ER Departure - Departure Time of Disposition: 16:15 Disposition: DC/Tfer to [facility] 03 Clinical Impression: COPD exacerbation - Discharge Information Referrals: Telma Sharpe NP [Primary Care Provider] - Sepsis Event Note (ED) - Evaluation Sepsis Screening Result: No Definite Risk - Focused Exam Vital Signs: Vital Signs Temp Pulse Resp BP Pulse Ox 11/09/20 15:30 79 16 136/63 99 11/09/20 15:15 78 16 126/63 100 11/09/20 15:00 79 16 130/64 100 11/09/20 14:55 98.1 F 81 18 139/64 90 L
== END 2020-11-09 16:25 ==
LOC: LL.ED 14:53
DX: J44.1 Chronic obstructive pulmonary disease with (acute) exacerbation (principal); I25.10 Atherosclerotic heart disease of native coronary artery without angina pectoris; E78.00 Pure hypercholesterolemia, unspecified; I13.0 Hypertensive heart and chronic kidney disease with heart failure and stage 1 through stage 4 chronic kidney disease, or unspecified chronic kidney disease; I50.9 Heart failure, unspecified; I25.2 Old myocardial infarction; N18.9 Chronic kidney disease, unspecified; E03.9 Hypothyroidism, unspecified; K21.9 Gastro-esophageal reflux disease without esophagitis; E66.9 Obesity, unspecified; Z86.73 Personal history of transient ischemic attack (TIA), and cerebral infarction without residual deficits; Z88.1 Allergy status to other antibiotic agents; Z88.0 Allergy status to penicillin; Z88.2 Allergy status to sulfonamides; Z91.048 Other nonmedicinal substance allergy status; Z79.82 Long term (current) use of aspirin; Z79.02 Long term (current) use of antithrombotics/antiplatelets; Z79.899 Other long term (current) drug therapy; Z86.718 Personal history of other venous thrombosis and embolism
CPT/HCPCS: 96372; 99284; A9270; J2930